=== PATIENT | male | born 1950 | race Caucasian/White ===

== ENCOUNTER 2024-02-12 09:17 | Observation (INO) ==
--- NOTE | 2024-02-12 10:16 | History & Physical Bridge Note ---
Date of Service February 12, 2024 History & Physical Bridge Note I have examined the patient, reviewed the History & Physical and in the interval since the performance of the History & Physical I have noted the following changes of clinical significance: no changes noted
--- NOTE | 2024-02-12 10:17 | Pre Anesthesia Assessment ---
Date of Service February 12, 2024 Pre Sedation Assessment Vital Signs Pulse Resp BP BP Pulse Ox O2 Del Method 02/12/24 10:13 18 147/86 H 96 Room Air 02/12/24 09:34 55 L 18 147/86 H 96 Room Air Cardiovascular RRR, no murmur, no edema + bradycardic Respiratory normal respiratory effort, lungs clear to auscultation Pre-Sedation Airway Assessment Hx Sleep Apnea: No Hx Difficult Intubation: No Short, Thick Neck: No Thyromental Distance: < 3.5 Finger Breadths Oral Cavity: + Dentures and + Dental Abnormalities Mallampati Class: I ASA: ASA3 NPO Status Date of Last Intake of Fluids: 02/11/24 Date of Last Intake of Solid Food: 02/11/24 Procedure Planning Contraindications for Sedation: none Current Medications Reviewed: Yes Notes The planned sedation has been discussed with the patient. Informed Consent was obtained. I have identified the patient, determined the appropriateness of sedation and have assessed the patient immediately prior to the procedure. All medicine(s) and interventions are by my order.
[2024-02-12] MEDS: LIDOCAINE 1% LOCAL 20 ML VIAL ONE (11:03)
[2024-02-12] MEDS: CLINDAMYCIN 900 MG/D5W 50 ML BAG IV ONE (11:04)
[2024-02-12] MEDS: ONDANSETRON INJ 2 MG/ML 2 ML VIAL ONE (11:12)
[2024-02-12] MEDS: NALOXONE HCL 0.4 MG/1 ML VIAL/CARP ONE (11:19)
[2024-02-12] MEDS: MIDAZOLAM HCL 5 MG/ML 1 ML VIAL ONE (11:39)
[2024-02-12] MEDS: fentaNYL citrate PF 100 MCG/2 ML VIAL ONE ×2 (11:39→14:53)
--- NOTE | 2024-02-12 11:56 | Operative Report ---
Post Operative Report DICTATED BY:Fabienne Pa D.O. DATE OF PROCEDURE: 02/12/2024. PREOPERATIVE DIAGNOSES: TBS and junctional bradycardia POSTOPERATIVE DIAGNOSIS: Same PROCEDURE: A dual-chamber rate responsive permanent pacemaker and intracardiac electrogram His bundle recordings, along with a peripheral venogram under f luoroscopic guidance. SURGEON: Fabienne Pa DO ASSISTANTS: None. ANESTHESIA: Monitored conscious sedation administered under my supervision by Bob Lloyd. Start time 10:48, end time 11:34, a total of 4 mg of Versed and 75 mcg of fentanyl. INTRAVENOUS FLUIDS: 294 mL. CONTRAST: 17 mL. ANTIBIOTICS: 900mg clindamycin ADDITIONAL MEDICATIONS: 4mg zofran, 0.4 narcan BLOOD LOSS: 50 mL. URINE OUTPUT: Not applicable. SPECIMENS: None. FINDINGS: See below. DRAINS: None. COMPLICATIONS: None. CONDITION: Stable. INDICATIONS: This is a 73-year-old gentleman who has a past medical history TBS, Junctional bradycardia, CAD s/p DALE x1 to mLAD 06/05/2021, Moderate to severe , Moderate AI, Persistent AF s/p DCCV 06/06/2021 [id number] (age, CHF), Chronic heart failure with reduced EF-NYHA Class II, ICM EF was down to 25% at one time most recent echo 40%, HLD, Thoracic aortic aneurysm, Pulmonary HTN. Pt with wosening TBS and junctional bradycardia and was recommended a pacemaker. CONSENT: Consent was obtained prior to the patient going into the electrophysiology lab. The patient was informed of the risks, benefits, and alternatives to the procedure. Risks include, but not limited to, sudden cardiac , cardiac arrhythmias, cerebrovascular accident, myocardial infarction, injury to his blood vessels, chamber of the heart and lung, bleeding and infection. The patient understood these risks and agreed to the procedure as planned. Informed consent was obtained. DESCRIPTION OF PROCEDURE: The patient was brought into electrophysiology lab in a fasting state. He was connected to continuous cardiac monitoring. A timeout was performed to ensure the patient's identity and procedure correctly. He was prepped and draped in the left infraclavicular space in normal surgical standard fashion. Monitored conscious sedation was given throughout the procedure for the patient's comfort level. Lane precautions were maintained throughout the procedure. Prophylactic antibiotics were given prior to incision. A 20 mL of 1% lidocaine and bupivacaine mixture were given in the left deltopectoral groove. An incision was made in the left deltopectoral groove. Blunt dissection was performed down to the pectoralis muscle. Then, using blunt dissection over the pectoralis muscle within the pectoral fascia, a pacemaker pocket was created. Then, a peripheral venogram was performed to identify the axillary vein. Venous axillary access was obtained through a needlestick without any problems. A guidewire was inserted without any resistance. A 9- Romanian sheath was inserted over the guidewire without any resistance. Dilator was removed and a second guidewire was inserted through the sheath to allow for retained venous access. Then a 6 Romanian sheath was advanced over one of the guidewires. The guidewire and dilator were removed. Then the right atrial pacing lead was advanced temporarily into the RV apex to allow for back up pacing while positioning the left bundle lead. Then a 9 Romanian sheath was inserted over the retained guidewire. The guidewire and dilator were removed. Then, the [employer] 3D medium sheath was inserted through the 9-Romanian sheath over a Glidewire into the right ventricle. The Glidewire and dilator were removed. Then, the left bundle lead was advanced through the sheath and intracardiac electrogram His bundle recordings were performed when the camera was in BOTELLO 10. Once I found where the His bundle is, see below for results, I then moved the camera to BOTELLO 30 and marked where the His bundle was on my fluoroscopy screen. I came down about 2 cm from this in a line that would extend out to the apex and then started coming on pacing. Once I found an area where I had a nice W formed pace complex in my lead V1, I then moved the camera to JASEN 30. Then the helix was extended into the septum. Then the helix locking tool was placed. Then the lead was screwed further into the septum while pacing by giving slow clockwise turns. The paced complex changed to a nice R' in V1 and the pacing stim to peak QRS in V6 was good. I then gave contrast through the sheath to see how far the lead was into the septum and then I slit the [employer] 3D medium sheath under fluoroscopic guidance and left the 9-Romanian sheath in while I positioned the right atrial lead. Then the right atrial lead screw was retracted and the lead was pulled back into the RA and positioned into right atrial appendage under fluoroscopic guidance. There was adequate pacing and sensing thresholds and no diaphragmatic stimulation with high output pacing. The 6-Romanian sheath was peeled away and the lead was fixated to the pectoralis muscle using 0 silk suture. Of note the pt started moving and then coughing and vomited up thick yellow/clear phlegm. He was clapping down on his jaw. HR remained stable; BP dropped into the 90s systolic; we temporally dual AV paced him and reversed his sedation. Pt was fine afterwards and did not recall anything. The 9-Romanian sheath around the left bundle lead was peeled away and the lead was fixated to pectoralis muscle using 0 silk suture. The pocket was flushed with copious amounts of vancomycin and saline wash and inspected for hemostasis. The leads were then attached to the pulse generator making sure the pins were in appropriate position, passed set screws, and set screws were all tightened. Pulse generator was then placed in the pocket, making sure the leads were lying flat beneath the device. The incision was closed in a 3-layer fashion using 2-0 Vicryl interrupted suture, followed by 3-0 Vicryl interrupted suture, followed by 4-0 Monocryl running stitch. Then a primaseal dressing was placed EQUIPMENT: 1. Pulse generator is a [employer]etis MRI Model Number [id number] SN: [id number]. 2. Right atrial lead, Betancourt SJM Tendril STS [id number] SN: [id number] 3. Left bundle lead, Betancourt SJM Tendril STS 8TC SN: [id number] INTRAPROCEDURAL FINDINGS: 1. Intracardiac electrogram His bundle recordings, AH is 97 milliseconds, HV is 44 milliseconds. 2. Right atrial lead, P waves 3.1 millivolts, impedance 450 ohms, threshold 0.6 volts at 0.4 milliseconds. 3. Left bundle lead, R waves 8 millivolts, impedance 653 ohms, threshold 0.9 volts at 0.4 milliseconds. FINAL MEASUREMENTS THROUGH THE DEVICE: 1. Right atrial lead, P waves 2.3 millivolts, impedance 450 ohms, threshold 1.0 volt at 0.4 milliseconds. 2. Left bundle lead, R waves 6.8 millivolts, impedance 630 ohms, threshold 0.75 volts at 0.4 milliseconds. FINAL PARAMETERS: DDDR 60/120, right atrial amplitude 3.5 volts, pulse width 0.4 milliseconds, sensitivity 0.5 millivolts. Left bundle lead amplitude 3.5 volts, pulse width 0.4 milliseconds, sensitivity 2 millivolts. IMPRESSION: Successful dual chamber rate responsive permanent pacemaker under fluoroscopic guidance along with peripheral venogram and intracardiac electrogram His bundle recordings, all under fluoroscopic guidance secondary to TBS and junctional bradycardia. PLAN: Monitor the patient post-procedure. A 12-lead ECG, chest x-ray. He is not to lift the left elbow or left shoulder for 1 month. He cannot lift more than 10 pounds with the left arm for 2 weeks. He is to keep the dressing on and dry until his wound check next week.
--- NOTE | 2024-02-12 12:37 | XRay Report ---
XR chest 1V portable CLINICAL HISTORY: s/p ppm ensure no PTX; also assess for aspiration COMPARISON STUDY: No previous studies for comparison. FINDINGS: There is no pneumothorax following placement of a dual-lead left subclavian pacer. No pleur al effusion is present. There is no evidence for pulmonary edema. There is mild cardiomegaly. IMPRESSION: No pneumothorax following placement of a dual-lead left subclavian pacer. ACT 112: Negative or not required by law. Electronically signed by: Leonardo Eldridge M.D. 02/12/2024 12:35 PM
[2024-02-12] MEDS: BUPIVACAINE 0.25% PF 30 ML VIAL ONE (14:52)
[2024-02-12] MEDS: VANCOMYCIN HCL 1000MG/20ML VIAL ONE (14:53)
[2024-02-12] MEDS: WATER, STERILE FOR INJ 10 ML VIAL ONE (14:53)
[2024-02-12] MEDS: ceFAZolin 330 MG/ML 1 GM VIAL ONE (14:53)
[2024-02-12] MEDS: FLUMAZENIL 0.1 MG/1 ML 10 ML VIAL IV ONE (14:53)
[2024-02-12] MEDS: MIDAZOLAM HCL 1 MG/ML 2ML VIAL ONE (14:53)
--- NOTE | 2024-02-12 15:26 | Electrocardiogram Report ---
Test Reason : Blood Pressure : */* mmHG Vent. Rate : 60 BPM Atrial Rate : 60 BPM P-R Int : 198 ms QRS Dur : 156 ms QT Int : 480 ms P-R-T Axes : * -39 7 degrees QTcB Int : 480 ms Atrial-paced rhythm Left axis deviation Right bundle branch block Abnormal ECG No previous ECGs available Confirmed by Marcello Beyer ([id number]) on 02/12/2024 3:26:22 PM Referred By: Fabienne Pa Confirmed By: Marcello Beyer
--- OUTSIDE RECORDS SUMMARY | 2024-02-12 18:28 | External Medical Summary ---
Author Name Unknown Address Unknown Organization [id number]:[facility] [place] [address] [facility] [address] Laboratory Report Ordering Provider Test Date Status RENÉE WEAVER 02/06/2024 16:39:48 Final Observation Date Value Abnormality Reference (Units ) Status BUN 02/06/2024 16:39:48 20 6-20 (mg/dL) Final Creatinine 02/06/2024 16:39:48 1.1 0.6-1.2 (mg/dL) Final Glomerular filtration rate/1.73 sq M.predicted [Volume Rate/Area] in Serum, Plasma or Blood by Creatinine-based formula (CKD-EPI) 02/06/2024 16:39:48 69 >=60 (mL/min) Final eGFR is calculated based on the CKD-EPI 2020 equation. Sodium 02/06/2024 16:39:48 138 135-146 (m mol/L) Final Potassium 02/06/2024 16:39:48 5.0 3.5-5.1 (m mol/L) Final Cl 02/06/2024 16:39:48 104 98-107 (mm ol/L) Final CO2 02/06/2024 16:39:48 24 22-32 (mmo l/L) Final Anion gap 02/06/2024 16:39:48 10 7-15 (mmol /L) Final Glucose 02/06/2024 16:39:48 79 70-120 (mg /dL) Final Calcium 02/06/2024 16:39:48 9.9 8.4-10.2 ( mg/dL) Final Performing Location [facility] [place] [address] [facility] [address]
--- OUTSIDE RECORDS SUMMARY | 2024-02-12 18:28 | External Medical Summary ---
Author Name Unknown Address Unknown Organization [id number]:[facility] [place] [facility] [address] [facility] [address] Laboratory Report Ordering Provider Test Date Status RENÉE WEAVER 02/06/2024 16:39:48 Final Observation Date Value Abnormality Reference (Units ) Status WBC, Total 02/06/2024 16:39:48 7.32 4.00-10.80 (K/uL) Final RBC 02/06/2024 16:39:48 4.84 4.50-5.25 (M/uL) Final Hemoglobin 02/06/2024 16:39:48 15.4 14.0-16.8 (g/dL) Final HCT 02/06/2024 16:39:48 46.4 40.0-48.4 (%) Final MCV 02/06/2024 16:39:48 95.9 82.0-99.5 (fL) Final MCH 02/06/2024 16:39:48 31.8 27.0-34.0 (pg) Final MCHC 02/06/2024 16:39:48 33.2 32.0-36.0 (g/dL) Final RDW 02/06/2024 16:39:48 15.0 11.5-15.5 (%) Final Platelets 02/06/2024 16:39:48 180 140-400 (K/uL) Final MPV 02/06/2024 16:39:48 13.4 6.6-11.1 (fL) Final Nucleated erythrocytes/100 leukocytes [Ratio] in Blood by Automated count 02/06/2024 16:39:48 0 <=0 (/100 WBCs) Final Performing Location [facility] [place] [address] [facility] [address]
--- OUTSIDE RECORDS SUMMARY | 2024-02-12 18:28 | External Medical Summary | Summary of Care ---
Author Name Unknown Organization [facility] Address [address] [place] [address] Phone [phone] Care Team Providers Care Interior Wall Assembler Name Role Phone Tg Higgins MD Primary Care Provider + Reason for Visit * Reason Comments Outpatient Testing Encounter Details Date Type Department Care Team ([facility] st Contact Info) Description 02/06/2024 4:40 PM EDT Laboratory Laboratory, [facility] [address] [place] [id number] [facility], Lab [address] [place] [address] Junctional bradycardia; Tachy-garland syndrome (HCC); Coronary artery disease involving chinik coronary artery of chinik heart without angina pectoris; HFrEF (heart failure with reduced ejection fraction) ([facility]); Pulmonary hypertension (HCC); Prediabetes; Pre-operative cardiovascular examination Allergies Active Allergy Reactions Criticality Noted Date Comments Ceftriaxone Rash Medium 06/06/2021 documented as of this encounter (statuses as of 02/06/2024) Medications Medication Sig Dispensed Refills Start Date End Date Status LUMIGAN 0.01 % ophthalmic solution APPLY 1 DROP INTO BOTH EYES AT BEDTIME 5 07/08/2017 Active Aspirin EC 81 MG Oral Tablet Delayed Release Take 1 Tablet by mouth in the morning. 06/26/2022 Active Apixaban 5 MG Oral Tablet (Eliquis) Take 1 Tablet by mouth in the morning and 1 Tablet before bedtime. 60 Tablet 12 09/19/2022 Active Cholecalciferol 125 MCG (5000 UT) Oral Capsule Take 1 Capsule by mouth in the morning. 07/24/2022 Active Brinzolamide 1 % Ophthalmic Suspension (Azopt) Instill 1 Drop into the left eye daily. 07/16/2023 Active Methylcobalamin 1 MG Oral Tablet Chewable Take by mouth. 02/01/2023 Active Vitamin C 500 MG Oral Tablet (Ascorbic Acid) Take 1 Tablet by mouth in the morning and 1 Tablet before bedtime. Active Crestor 5 MG Oral Tablet Take 1 Tablet by mouth in the morning. 08/12/2023 Active Metoprolol Succinate ER 25 MG Oral Tablet Extended Release 24 Hour (toPROL XL) Take 0.5 Tablets by mouth in the morning. Take in evening.. 30 Tablet 5 10/29/2023 Active Losartan Potassium 25 MG Oral Tablet (Cozaar) Take 1 Tablet by mouth in the morning. 90 Tablet 3 12/09/2023 Active Empagliflozin 10 MG Oral Tablet (Jardiance) Take 1 Tablet by mouth in the morning. 90 Tablet 3 01/06/2024 Active documented as of this encounter (statuses as of 02/06/2024) Active Problems Problem Noted Date Diagnosed Date HFrEF (heart failure with reduced ejection fract ion) 10/11/2023 Paroxysmal atrial fibrillation 10/11/2023 Coronary artery disease invo lving chinik coronary artery of chinik heart without angina pectoris 10/11/2023 Acute systolic HF (heart failure) 06/02/2021 Nonrheumatic aortic valve stenosis 06/02/2021 Mitral regurgitation 06/02/2021 Ground glass opacity present on imaging of lung 06/02/2021 Prediabetes 06/02/2021 BAR (dyspnea on exertion) 06/02/2021 Obesity 06/02/2021 Cardiomyopathy 06/01/2021 Valvular heart disease 06/01/2021 Right lower lobe pneumonia 05/31/2021 Mild cardiomegaly 05/31/2021 Pulmonary hypertension 05/31/2021 Thoracic aortic aneurysm without rupture 022 Elevated glucose 05/31/2021 documented as of this encounter (statuses as of 02/06/2024) Resolved Problems Problem Noted Date Diagnosed Date Resolved Date Near syncope 10/11/2023 10/12/2023 Left against medical advice 06/01/2021 06/02/2021 Atrial fibrillation with RVR 05/31/2021 06/04/2021 documented as of this encounter (statuses as of 02/06/2024) Immunizations Name Administration Dates Next Due COVID-19 mRNA, LNP-s, No Pre serve, 2-Dose Series ([employer]) 08/27/2020,08/05/2020 Seasonal Influenza, High Dos e, Trivalent, PF, IM (Fluzone HD) 01/22/2024 documented as of this encounter Social History Tobacco Use Types Packs/Day Years Used Date Smoking Tobacco: Never Smokeless Tobacco: Never Alcohol Use Standard Drinks/Week Comments No 0 (1 standard drink = 0.6 oz pur e alcohol) Utilities Answer Date Recorded Do you have trouble paying y our heating, water, or electric bill? (Adult - for ages 18 years and over) Not on file 10/29/2023 Is your family able to pay t he heat, water, or electric bill? (Household - for ages 0-17 years) Not on file 10/29/2023 Does your family have access to good internet? (Household - for ages 0-17 years) Not on file 10/29/2023 Social Connections Answer Date Recorded How often do you feel lonely or isolated from those around you? (Adult - for ages 18 years and over) Not on file 10/29/2023 Sex and Gender Information Value Date Recorded Sex Assigned at Not on file Gender Identity Not on file Sexual Orientation Not on file Job Start Date Occupation Industry Not on file Not on file Not on file documented as of this encounter Functional Status Functional Status Response Date of Assess ment Are you deaf or do you have serious difficulty h earing? No 10/11/2023 Are you blind or do you have serious difficulty seeing, even when wearing glasses? No 10/11/2023 Do you have serious difficul ty walking or climbing stairs? (5 years old or older) No 10/11/2023 Do you have difficulty dress ing or bathing? (5 years old or older) No 10/11/2023 Because of a physical, menta l, or emotional condition, do you have difficulty doing errands alone such as visiting a doctor s office or shopping? (15 years old or older) No 10/11/19 Cognitive Status Response Date of Assessm ent Because of a physical, menta l, or emotional condition, do you have serious difficulty concentrating, remembering, or making decisions? (5 years old or older) No 10/11/2023 documented as of this encounter Plan of Treatment Upcoming Encounters Date Type Department Care Team (Late st Contact Info) Description 02/19/2024 10:30 AM EDT Cardiac Studies Cardiology, [place] [address] [place] [address] [facility] [address] [place] [address] 02/19/2024 1:30 PM EDT Office Visit Cardiology, [place] [address] [place] [address] [facility] [facility] [address] 03/31/2024 1:30 PM EST Office Visit Cardiology, [place] [address] [place] [address] Tacos Talbot DO [address] [facility] [place] [address] 09/21/2024 3:00 PM EDT Office Visit [facility] [address] [place] [address] Jyoti Blackwood CRNP [address] [facility] [place] [address] Pending Results Name Type Priority Associated Diagnoses Date /Time BASIC METABOLIC PANEL Lab Routine Junctional bradycardia Tachy-garland syndrome (HCC) Coronary artery disease involving chinik coronary artery of chinik heart without angina pectoris HFrEF (heart failure with reduced ejection fraction) (HCC) Pulmonary hypertension (HCC) Prediabetes Pre-operative cardiovascular examination 02/06/2024 4:39 PM EDT CBC Lab Routine Junctional bradycardia Tachy-garland syndrome (HCC) Coronary artery disease involving chinik coronary artery of chinik heart without angina pectoris HFrEF (heart failure with reduced ejection fraction) (HCC) Pulmonary hypertension (HCC) Prediabetes Pre-operative cardiovascular examination 02/06/2024 4:39 PM EDT Health Maintenance Due Date Last Done Comments Depression Screening 1961 Hepatitis C Screening 1967 DTap/Tdap Vaccines (1 - Tdap) 1968 Colonoscopy 1994 Fecal Occult Blood Test 1994 Sigmoidoscopy 1994 HbA1c 06/03/2022 06/03/2021, 05/13, 01/10/2021, Additional history exists Zoster Vaccines (2 of 2) 05/12/2023 03/17/2023 COVID-19 Vaccine ( season) 2024 03/17/2023, 03/17/2023, 03/12/2022, Additional history exists Cologuard 06/22/2024 06/22/2021, 06/15/2021 Colorectal Cancer Screening 06/22/2024 Pneumococcal Vaccine: 65+ Years Completed 02/01/2023 Influenza Vaccine (FLU shot) Completed 01/22/2024, 02/01/2023 HPV (Gardasil) Vaccine Aged Out No lo nger eligible based on patient's age to complete this topic Hepatitis B Vaccine Aged Out No longe r eligible based on patient's age to complete this topic MENINGOCOCCAL (MENACTRA/MENVEO) Aged Out No longer eligible based on patient's age to complete this topic documented as of this encounter Medical Devices Implanted Type Area Flame Annealing Machine Operator Device Identifier Shelf Expiration Date Model / Serial / Lot Stent Oren 3.0x12 Rx - [id number] Implanted:Qty: 1 on 06/05/2021 by Arvind Denney DO at [facility] [employer] : VASCULAR [id number] 11/14/2023 [id number] / / [id number] documented as of this encounter Visit Diagnoses Diagnosis Junctional bradycardia Other specified cardiac dysrhythmias Tachy-garland syndrome (HCC) Sinoatrial node dysfunction Coronary artery disease involving chinik coronary artery of chinik heart without angina pectoris HFrEF (heart failure with reduced ejection fraction) (HCC) Pulmonary hypertension (HCC) Other chronic pulmonary heart diseases Prediabetes Other abnormal glucose Pre-operative cardiovascular examination documented in this encounter Advance Directives * Full Code (Latest Code Status on File) Date Activated Date Inactivated Comments 10/11/2023 10:01 AM 10/12/2023 2:50 PM This order r eflects the patients wishes and were consensually agreed upon. Question Answer Comments Discussion of Advance Direct sarita occurred with: Patient Does the patient have a Living Will? Yes, in rosaura rt and reviewed as current Does the patient have Health Care Power of X Ray Physician? Yes, in chart and reviewed as current * Full Code Date Activated Date Inactivated Comments 06/02/2021 5:24 PM 06/06/2021 4:07 PM This order r eflects the patients wishes and were consensually agreed upon. * Full Code Date Activated Date Inactivated Comments 06/01/2021 3:42 PM 06/02/2021 5:15 PM This order r eflects the patients wishes and were consensually agreed upon. Question Answer Comments Discussion of Advance Directives occurred with: Patient * Full Code Date Activated Date Inactivated Comments 05/31/2021 12:54 PM 06/01/2021 12:09 PM This order reflects the patients wishes and were consensually agreed upon. Question Answer Comments Discussion of Advance Directives occurred with: Patient Care Teams Interior Wall Assembler Relationship Specialty Start Date End Date Tg iHggins MD [address] [facility] [place] [address] PCP - General Family Medicine 03/06/17 documented as of this encounter
--- OUTSIDE RECORDS SUMMARY | 2024-02-12 18:28 | External Medical Summary | Summary of Care ---
Author Name Unknown Organization [facility] Address [address] [place] [address] Phone [phone] Care Team Providers Care Radio Television Announcer Name Role Phone Tg Higgins MD Primary Care Provider + Reason for Visit * Reason Onset Date Comments Dosage Adjustment In Person (Antico Clinic) Congestive Heart Failure Medication Administration 01/22/2024 Flu an d/or Pneumo Inj Encounter Details Date Type Department Care Team ([facility] Contact Info) Description 01/22/2024 1:00 PM EDT [facility] [address] [place] [address] [facility] Card[facility] [address], [place] [id number] Need for prophylactic vaccination and inoculation against influenza* Allergies Active Allergy Reactions Criticality Noted Date Comments Ceftriaxone Rash Medium 06/06/2021 documented as of this encounter (statuses as of 01/22/2024) Medications Medication Sig Dispensed Refills Start Date [...] as of this encounter (statuses as of 01/22/2024) Active Problems Problem Noted Date Diagnosed Date HFrEF (heart failure with reduced ejection fract ion) 10/11/2023 Paroxysmal atrial fibrillation 10/11/2023 Coronary artery disease invo lving [place] coronary artery of [place] heart without angina pectoris 10/11/2023 Acute systolic HF (heart failure) 06/02/2021 Nonrheumatic aortic valve stenosis 06/02/2021 Mitral regurgitation 06/02/2021 Ground glass opacity present on imaging of lung 06/02/2021 Prediabetes 06/02/2021 BRA (dyspnea on exertion) 06/02/2021 Obesity 06/02/2021 Cardiomyopathy 06/01/2021 Valvular heart disease 06/01/2021 Right lower lobe pneumonia 05/31/2021 Mild cardiomegaly 05/31/2021 Pulmonary hypertension 05/31/2021 Thoracic aortic aneurysm without rupture 022 Elevated glucose 05/31/2021 documented as of this encounter (statuses as of 01/22/2024) Resolved Problems Problem Noted Date Diagnosed Date Resolved Date Near syncope 10/11/2023 10/12/2023 Left against medical advice 06/01/2021 06/02/2021 Atrial fibrillation with RVR 05/31/2021 06/04/2021 documented as of this encounter (statuses as of 01/22/2024) Immunizations Name Administration Dates Next Due COVID-19 mRNA, LNP-s, No Pre serve, 2-Dose Series (Pfizer) 08/27/2020,08/05/2020 Seasonal Influenza, High Dos e, Trivalent, [...] on file documented as of this encounter Last Filed Vital Signs Vital Sign Reading Time Taken Comments Blood Pressure 116/69 01/22/2024 1:10 PM EDT Pulse 45 01/22/2024 1:10 PM EDT Temperature - - Respiratory Rate - - Oxygen Saturation - - Inhaled Oxygen Concentration - - Weight 100 kg (220 lb 6.4 oz) 01/22/2024 1:10 PM EDT Height - - Body Mass Index 29.89 10/29/2023 9:25 AM EDT documented in this encounter Functional Status Functional Status Response [...] No 10/11/2023 documented as of this encounter Patient Instructions * Patient Instructions* Emilie Pacheco RPh - 01/22/2024 1:14 PM EDT ~~PATIENT INSTRUCTIONS FOR FLU SHOT~~ Possible side effects of influenza vaccine, (flu shot), are usually mild and include: 1. Soreness or redness at injection site 2. Low grade fever 3. Body aches You may use Tylenol/Acetaminophen as needed for these symptoms. LET YOUR DOCTOR KNOW IMMEDIATELY IF YOU HAVE DIFFICULTY BREATHING OR SWALLOWING, EXPERIENCE ITCHINGOF FEET OR HANDS, HAVE SWELLING OF EYES, FACE OR INSIDE OF NOSE. Continue current medications for your heart Jardiance is used for diabetes BUT its also used to treat a week heart (which you have) Can cause mild weight loss We will continue your current mediations documented in this encounter Progress Notes * Emilie Pacheco RPh - 01/22/2024 12:55 PM EDT PHARMACY CHRONIC DISEASE MANAGEMENT - HEART FAILURE Richard Holt is an 73 year old patient referred to the Heart Failure [place] clinic by [facility] Jean-Baptiste for the following: General heart failure medication optimization HPI: Patient has heart failure assessment: Heart failure with REDUCED ejection fraction (SYStolic heart failure) with ischemic heart disease Etiology: Most recent LVEF: 40 % Date: 12/10/23 Modality: Echo PPrevious LVEF: 35% Date: 10/29/23 Modality: Echo 30% Date: 10/11/23 Modality: Echo 50 % Date: 03/06/22 Modality: Echo 40% Date: 09/15/21 Modality: Echo 25 % Date: 06/05/21 Modality: Echo 30 % Date: 06/01/21 Modality: Echo Home vitals: Does patient monitor BP at home? no Any dizziness or lightheadedness: Sometime when changing positions Home BP log results: N/a Does patient monitor HR at home? no Home HR log results: N/a Does patient monitor weight at home? no Any increased edema or shortness of breath: denies Home weight log results: Not checking at home Objective: BP Readings from Last 3 Encounters: 01/22/24 116/69 01/06/24 116/63 12/23/23 98/58 Pulse Readings from Last 3 Encounters: 01/22/24 45 01/06/24 44 12/09/23 47 Wt Readings from Last 3 Encounters: 01/22/24 100 kg (220 lb 6.4 oz) 12/09/23 100 kg (220 lb 8 oz) 10/29/23 98.9 kg (218 lb) Lab Results Component Value Date/Time CREATININE - [facility] 1.0 01/20/2024 02:02 PM CREATININE - [facility] 1.0 12/20/2023 01:39 PM CREATININE - [facility] 1.0 10/12/2023 03:24 AM CREATININE-OU[facility]IDE LAB 1.0 08/05/2023 10:06 AM CREATININE-[facility] 0.9 07/13/2022 01:16 PM CREATININE-[facility]TSIDE LAB 0.9 12/29/2021 01:10 PM Lab Results Component Value Date/Time SODIUM - [facility] 139 01/20/2024 02:02 PM SODIUM - [facility] 138 12/20/2023 01:39 PM SODIUM - [facility] 138 10/12/2023 03:24 AM SODIUM-[facility] 141 08/05/2023 10:06 AM SODIUM-[facility] 140 07/13/2022 01:16 PM SODIUM-[facility]IDE LAB 140 12/29/2021 01:10 PM Lab Results Component Value Date/Time POTASSIUM - [facility] 4.5 01/20/2024 02:02 PM POTASSIUM - [facility] 4.5 12/20/2023 01:39 PM POTASSIUM - [facility] 4.2 10/12/2023 03:24 AM POTASSIUM-[facility]IDE LAB 4.7 08/05/2023 10:06 AM POTASSIUM-[facility]IDE LAB 4.1 07/13/2022 01:16 PM POTASSIUM-OUTSIDE LAB 4.2 12/29/2021 01:10 PM No results found for: "DIG" Lab Results Component Value Date/Time HGB 13.9 (L) 10/12/2023 03:24 AM HGB 14.6 10/11/2023 11:08 AM HGB 14.0 08/05/2023 10:06 AM HGB 43.7 08/05/2023 10:06 AM HGB 15.5 07/13/2022 01:16 PM HGB 46.3 07/13/2022 01:16 PM HGB 15.0 12/29/2021 01:10 PM HGB 44.6 12/29/2021 01:10 PM No results found for: "FERRITIN" No results found for: "IRON" No results found for: "IRON BIND" No results found for: "TRANSFERRIN" Diet Review: not reviewed Current Heart Failure Medication(s): Losartan 25 mg daily Metoprolol ER 12.5 mg daily Jardiance 10 mg daily-started 01/06/24 ( momo) Crestor 5 mg daily Eliquis 5 mg twice daily Aspirin 81 mg daily MOMO Card ID:[id number] Group: [id number] BIN: [id number] PCN: [id number] 06/10/2023-06/09/2024 Eligible for [facility] Order pharmacy? Agree or Declined? Denies Assessment & Plan: HFrEF -Most recent EF 40% -Entresto d/c in past during hospitalization due to hypotension 70s systolic Patient doing well today. Was able to start Jardiance and is tolerating. Still having concerns of hypotension and dizziness. Denies it worsening with the Jardiance. Follow up BMP was stable. Patient bradycardic in clinic again today. Seeing Dr Pa at the end of the month. No changes until after her visit. Would consider re-trail of dose Entresto however will need to be cautious as pt is symptomatic. 2. CAD -DALE x1 mLAD, has 50% RCA stenosis 06/05/21 3. Moderate-Severe Aortic Stenosis 4. Moderate Aortic Regurgitation 5. Persistent AFIB -GREGOR/DCCV 10/29/23 -DCCV 06/06/2021 -CHADVASC 2 (age, CHF) -Eliquis Medication Changes: none Labs Due: none Vaccines Due: Not reviewed Follow up: [address] Pa I spent a total of 10-19 minutes (exact time 15 mins) on the date of service in preparation, delivery, and documentation of the care provided to Richard Holt excluding any time spent in the performance of separately billed services or time spent by another provider/QHP. Emilie Beatty [facility] Clinical Pharmacist Medication Therapy Disease Management [id number] 01/22/2024,12:55 PM PRE - ADMINISTRATION DOCUMENTATION Are you experiencing any cold symptoms or fever? No Have you had Guillain-Thornburg Syndrome (an illness that causes paralysis) within the last 6 weeks? No Have you had the flu shot in the past? YES Have you ever had a reaction to the flu shot? No Emilie Beatty keerthi, 01/22/2024 1:14 PM Immunization Administration Documentation Time Out Procedure Performed: Yes Patient Identified (Ask Name/Date of ): Yes Does the patient have a fever greater than 101 degrees today? No Patient allergic to latex? No VFC Stock: No Immunization(s) verified: Yes, Immunization Name: Flu, VIS Sheet(s) given: No Verified Side and Site: Yes Verified Shot(s) with Parent(s)/Patient: Yes documented in this encounter Plan of Treatment Upcoming Encounters Date Type Department Care Team (Late st Contact Info) Description 02/06/2024 2:15 PM EDT Office Visit [facility] [address] [address] Fabienne Pa DO [address] [address] 02/19/2024 1:30 PM EDT Office Visit [facility]iology[facility] [address] [facility] Cardiology [address] [address] 03/31/2024 1:30 PM EST Office Visit [facility]iology[facility] [address] [address] [place], [address] [address] Health Maintenance Due Date Last Done Comments [...] this encounter Medical Devices Implanted Type Area Client Onboarding Analyst Device Identifier Shelf Expiration Date Model / Serial / Lot Stent Oren 3.0x12 Rx - [id number] Implanted:Qty: 1 on 06/05/2021 by Arvind Denney DO at [facility] [employer] : VASCULAR [id number] 11/14/2023 [id number] / / [id number] documented as of this encounter Visit Diagnoses Diagnosis Need for prophylactic vaccination and inoculation against influenza- Primary documented in this encounter Advance Directives * [...] the patient have Health Care Power of Guest Experience Captain? Yes, in chart and reviewed as current [...] Advance Directives occurred with: Patient Care Teams Radio Television Announcer Relationship Specialty Start Date End Date Tg Higgins MD [address] [facility] [place] [address] PCP - General Family Medicine 03/06/17 documented as of this encounter
--- OUTSIDE RECORDS SUMMARY | 2024-02-12 18:28 | External Medical Summary | Summary of Care ---
Author Name Unknown Organization [facility] Address [address] [place] [address] Phone [phone] Care Team Providers Care Railcar Brake Operator Name Role Phone Tg Higgins MD Primary Care Provider + Reason for Visit * Reason Onset Date Comments Patient Instructions 02/06/2024 Encounter Details Date Type Department Care Team ([facility] st Contact Info) Description 02/06[facility]20[facility] [address] [place] [address] Fabienne Pa, [address] [place] [address] Patient Instructions Allergies Active Allergy Reactions Criticality Noted Date [...] fibrillation 10/11/2023 Coronary artery disease invo lving [place] coronary artery of [place] heart without angina pectoris 10/11/2023 Acute systolic [...] mRNA, LNP-s, No Pre serve, 2-Dose Series ([place]) 08/27/2020,08/05/2020 Seasonal Influenza, High Dos e, Trivalent, [...] No 10/11/2023 documented as of this encounter Miscellaneous Notes * Telephone Encounter - Gwendolyn Eldridge NRCMA - 02/06/2024 4:18 PM EDT Device Instructions Procedure Date: 02/12/2024 Time: 10:30 am Location: [facility] Main Entrance- Outpatient Registration, [address] [facility], [place] [address] Patient was notified via written instructions given at office visit. Nothing to eat or drink after midnight, You may have clear liquids 4 hours prior to procedure No caffeine 24 hours prior to procedure No tobacco products after midnight Arrive at [facility] at 9:30 am in the Medical Treatment Unit/Same Day Surgery Desk and check in at the registration desk. Arrive at the time given to you by the PAT dept and check in at the registration desk. Aproximate time: The hospital will call you the evening before & give you exact time. This is an estimated arrival time. Please follow what they tell you when they call. Meds to hold AM of procedure include- Jardiance, Eliquis and any over the counter vitamins, Fish oil and/or Vit E. Eliquis Instruction: Stop med two doses prior to the procedure. Pt may take all other medications regularly scheduled that morning. Additional labs or testing needed: labs needed Bring all of your medications with you in their original containers. Use Chlorhexidine wash the evening prior to and the morning of the procedure. Follow instructions given with the wash. You may remain at [facility] Overnight for observation. Wound check in [facility] Cardiology [place] [facility] with Clinic Nurse is scheduled for 02/19/2024 at 10:30 am. Your wound is NOT PERMITTED to get wet in any way while site is covered by bandage. You are unable to shower/swim/hot tub until given permission by clinic nurse in the office. Call Aura at [phone] with any questions or concerns. documented in this encounter Plan of Treatment Upcoming Encounters Date Type Department Care Team (Late st Contact Info) Description 02/19/2024 10:30 AM EDT Cardiac Studies Cardiology, [place] [address] [address] [facility] [address] [address] [address] 02/19/2024 1:30 PM EDT Office Visit Cardiology, [place] [address] [place] [address] [facility] Cardiology [address] [facility], [place] [address] 03/31/2024 1:30 PM EST Office Visit Cardiology, [place] [address] [facility] [place] [address] [place], [address] [facility] [address] 09/21/2024 3:00 PM EDT Office Visit Cardiology, [place] [address] [facility] [place] [address] Jyoti Blackwood, [facility] [address] [facility] [address] Health Maintenance Due Date Last Done Comments [...] this encounter Medical Devices Implanted Type Area Market Maker Device Identifier Shelf Expiration Date Model / Serial / Lot Stent Oren 3.0x12 Rx - [id number] Implanted:Qty: 1 on 06/05/2021 by Arvind Denney DO at [facility] [employer] : VASCULAR [id number] 11/14/2023 [id number] / / [id number] documented as of this encounter Advance Directives * Full Code [...] the patient have Health Care Power of Potter Or Ceramic Artist? Yes, in chart and reviewed as current [...] Advance Directives occurred with: Patient Care Teams Railcar Brake Operator Relationship Specialty Start Date End Date Tg Higgins [facility] [address] [facility] [address] PCP - General Family Medicine 03/06/17 documented as of this encounter
--- OUTSIDE RECORDS SUMMARY | 2024-02-12 18:28 | External Medical Summary | Summary of Care ---
Author Name Unknown Organization [facility] Address [address] [place] [address] Phone [phone] Care Team Providers Care Bracelet Maker Novelty Name Role Phone Tg Higgins MD Primary Care Provider + Reason for Visit * Reason Comments Consultation Rm 12 * Evaluate & Treat - Unlimited Visits (Within 10 days (routine)) - Authorized Specialty Diagnoses / Procedures Referred By Contact Referred To Contact Cardiac Electrophysiology / Cardiology Diagnoses Persistent atrial fibrillation (HCC) Karla Lane CRNP [address] [place] [address] Referral ID Status Reason Start Date Expiration Date Visits Requested Visits Authorized [id number] Authorized Specialty Services Required 12/09/[id number] Encounter Details Date Type Department Care Team ([facility] Contact Info) Description 02/06/2024 2:15 PM EDT Office Visit Cardiology[address] [phone] Fabienne Pa DO [address], [place] [phone] Junctional bradycardia*; Tachy-garland syndrome (HCC); Coronary artery disease involving [place] coronary artery of [place] heart without angina pectoris; HFrEF (heart failure with reduced ejection fraction) (HCC); Pulmonary hypertension (HCC); Prediabetes; Pre-operative cardiovascular examination Allergies Active Allergy Reactions Criticality Noted Date Comments Ceftriaxone Rash Medium 06/06/2021 documented as of this encounter (statuses as of 02/07/2024) Medications Medication Sig Dispensed Refills Start Date [...] as of this encounter (statuses as of 02/07/2024) Active Problems Problem Noted Date Diagnosed Date HFrEF (heart failure with reduced ejection fract ion) 10/11/2023 Paroxysmal atrial fibrillation 10/11/2023 Coronary artery disease invo lving [place] coronary artery of [place] heart without angina pectoris 10/11/2023 Acute systolic [...] as of this encounter (statuses as of 02/07/2024) Resolved Problems Problem Noted Date Diagnosed Date Resolved Date Near syncope 10/11/2023 10/12/2023 Left against medical advice 06/01/2021 06/02/2021 Atrial fibrillation with RVR 05/31/2021 06/04/2021 documented as of this encounter (statuses as of 02/07/2024) Immunizations Name Administration Dates Next Due COVID-19 mRNA, LNP-s, No Pre serve, 2-Dose Series (LGL/LatinMedios) 08/27/2020,08/05/2020 Seasonal Influenza, High Dos e, Trivalent, [...] Sign Reading Time Taken Comments Blood Pressure 118/70 02/06/2024 3:08 PM EDT Pulse 44 02/06/2024 3:08 PM EDT Temperature - - Respiratory Rate 16 02/06/2024 3:08 PM EDT Oxygen Saturation - - Inhaled Oxygen Concentration - - Weight 98.9 kg (218 lb) 02/06/2024 3:08 PM EDT Height 182.9 cm (6') 02/06/2024 3:08 PM EDT Body Mass Index 29.57 02/06/2024 3:08 PM EDT documented in this encounter Functional Status [...] No 10/11/2023 documented as of this encounter Progress Notes * Fabienne Pa, - 02/06/2024 2:48 PM EDT Subjective Richard Holt is a 73 year old male. Chief Complaint Patient presents with Consultation Rm 12 Pt referred to EP due to TBS Referring Provider: Karla Lane Cardiac Problems: CAD s/p DALE x1 to mLAD 06/05/2021 Moderate to severe Moderate AI Persistent AF s/p DCCV 06/06/2021 [id number] (age, CHF) Chronic heart failure with reduced EF-NYHA Class II ICM EF was down to 25% at one time most recent echo 40% HLD HPI: Pt has dizziness and feels off; no syncope He does not really feel the AF at least palpitations He denies CP He can get SOB walking around the house at times Pt did not have any anginal symptoms or any symptoms when he ended up getting stent PMH: Patient Active Problem List Diagnosis Right lower lobe pneumonia Mild cardiomegaly Pulmonary hypertension (HCC) Thoracic aortic aneurysm without rupture (HCC) Elevated glucose Cardiomyopathy (HCC) Valvular heart disease Acute systolic HF (heart failure) (HCC) Nonrheumatic aortic valve stenosis Mitral regurgitation Ground glass opacity present on imaging of lung Prediabetes BAR (dyspnea on exertion) Obesity HFrEF (heart failure with reduced ejection fraction) (HCC) Paroxysmal atrial fibrillation (HCC) Coronary artery disease involving [place] coronary artery of [place] heart without angina pectoris Current Outpatient Medications Medication Sig Dispense Refill LUMIGAN 0.01 % ophthalmic solution APPLY 1 DROP INTO BOTH EYES AT BEDTIME 5 Aspirin EC 81 MG Oral Tablet Delayed Release Take 1 Tablet by mouth in the morning. Apixaban 5 MG Oral Tablet (Eliquis) Take 1 Tablet by mouth in the morning and 1 Tablet before bedtime. 60 Tablet 12 Cholecalciferol 125 MCG (5000 UT) Oral Capsule Take 1 Capsule by mouth in the morning. Brinzolamide 1 % Ophthalmic Suspension (Azopt) Instill 1 Drop into the left eye daily. Methylcobalamin 1 MG Oral Tablet Chewable Take by mouth. Vitamin C 500 MG Oral Tablet (Ascorbic Acid) Take 1 Tablet by mouth in the morning and 1 Tablet before bedtime. Crestor 5 MG Oral Tablet Take 1 Tablet by mouth in the morning. Metoprolol Succinate ER 25 MG Oral Tablet Extended Release 24 Hour (toPROL XL) Take 0.5 Tablets by mouth in the morning. Take in evening.. 30 Tablet 5 Losartan Potassium 25 MG Oral Tablet (Cozaar) Take 1 Tablet by mouth in the morning. 90 Tablet 3 Empagliflozin 10 MG Oral Tablet (Jardiance) Take 1 Tablet by mouth in the morning. 90 Tablet 3 No current facility-administered medications for this visit. Past Medical History: Diagnosis Date Ascending aorta dilation (HCC) Coronary artery disease Dyslipidemia, goal LDL below 70 HTN (hypertension) Ischemic cardiomyopathy Paroxysmal A-fib (HCC) Past Surgical History: Procedure Laterality Date CORONARY ANGIOGRAPHY W/LEFT HEART CATH Right 06/05/2021 CORONARY ANGIOGRAPHY W/LEFT HEART CATH performed by Arvind Denney DO [place] [facility] [place], [place] INTRAOPERATIVE N/A 10/29/2023 ECHOCARDIOGRAPHY, TRANSESOPHAGEAL; INCLUDING PROBE PLACEMENT, IMAGE ACQUISITION, INTERPRETATION ANDREPORT performed by Tacos Talbot DO at OR [facility] HEART ELECTROCONVERSION, EXTERNAL N/A 10/29/2023 DC CARDIOVERSION performed by Tacos Talbot DO at OR [facility] INFORMATION Colonoscopy. PEDIATRIC ECHO [facility] CONGENITAL INTERP - PROBE PLACEMENT N/A 06/05/2021 ECHOCARDIOGRAPHY, TRANSESOPHAGEAL, FOR CONGENITAL ANOMALIES; INCLUDING PROBE PLACEMENT, IMAGE ACQUISITION, INTERPRETATION AND REPORT performed by [facility] [place] [facility] Review of patient's allergies indicates: Allergen Reactions Ceftriaxone Rash Family History Problem Relation Name Age of Onset Heart disease Mother Other (old age) Father Family Status Relation Status Mo Fa Social History Socioeconomic History Marital status: Single Spouse name: Not on file Number of children: Not on file Years of education: Not on file Highest education level: Not on file Occupational History Not on file Tobacco Use Smoking status: Never Smokeless tobacco: Never Vaping Use Vaping status: Never Used Substance and Sexual Activity Alcohol use: No Drug use: No Sexual activity: Not on file Other Topics Concern Not on file Social History Narrative Not on file Social Determinants of Health Financial Resource Strain: Not on file Food Insecurity: Not on file Transportation Needs: Not on file Social Connections: Unknown (10/29/2023) Social Connections How often do you feel lonely or isolated from those around you? (Adult - for ages 18 years and over): Not on file Housing Stability: Not on file Review of Systems Constitutional: Negative for activity change, chills, fatigue, fever and unexpected weight change. HENT: Negative for postnasal drip, rhinorrhea and sinus pressure. Eyes: Negative for visual disturbance. Respiratory: Negative for shortness of breath. Cardiovascular: Negative for chest pain, palpitations and leg swelling. Gastrointestinal: Negative for blood in stool, constipation, diarrhea, nausea and vomiting. Genitourinary: Negative for dysuria and hematuria. Musculoskeletal: Negative for gait problem. Skin: Negative for rash. Neurological: Negative for dizziness, syncope and light-headedness. Objective BP 118/70 | Pulse 44 | Resp 16 | Ht 1.829 m (6') | Wt 98.9 kg (218 lb) | BMI 29.57 kg/m | BSA 2.24 m Physical Exam Vitals and nursing note reviewed. Constitutional: General: He is awake. Appearance: Normal appearance. He is well-developed. HENT: Head: Normocephalic and atraumatic. Eyes: General: No scleral icterus. Extraocular Movements: Extraocular movements intact. Neck: Vascular: Normal carotid pulses. No carotid bruit or JVD. Cardiovascular: Rate and Rhythm: Normal rate and regular rhythm. Pulses: Carotid pulses are 2+ on the right side and 2+ on the left side. Radial pulses are 2+ on the right side and 2+ on the left side. Posterior tibial pulses are 2+ on the right side and 2+ on the left side. Heart sounds: S1 normal and S2 normal. Murmur heard. Pulmonary: Effort: Pulmonary effort is normal. Breath sounds: Normal breath sounds. No decreased breath sounds, wheezing, rhonchi or rales. Musculoskeletal: Cervical back: Neck supple. Right lower leg: No edema. Left lower leg: No edema. Skin: General: Skin is warm and dry. Neurological: General: No focal deficit present. Mental Status: He is alert and oriented to person, place, and time. Psychiatric: Attention and Perception: Attention normal. Mood and Affect: Mood normal. Speech: Speech normal. Behavior: Behavior normal. Behavior is cooperative. Thought Content: Thought content normal. Cognition and Memory: Cognition normal. Judgment: Judgment normal. RESULTS: Echocardiogram: 12/10/2023: The qualitative LV ejection fraction is 40-44% (mildly reduced). The left ventricular cavity size is mildly enlarged. [id number] aortic valve stenosis. Aortic valve peak velcity of 3.8m/sec, mean gradient 33 mmhg, KEITH 1 sqcm, DI 0.2 Moderate aortic valve regurgitation is present. The proximal ascending thoracic aorta is moderately enlarged (4.8 cm). Normal IVC size and collapsability with inspiration indicates a normal right atrial pressure of 3 mmHg. The estimated pulmonary artery systolic pressure is 45mm Hg. 10/11/2023: Qualitative LV ejection Fraction = 30%. The right ventricular cavity is mildly dilated. The right ventricular systolic function is qualitatively normal. Moderate aortic valve stenosis is present. Severity of aortic valve stenosis is underestimated low-flow low gradient aortic valve stenosis. Moderate aortic valve regurgitation is present. Moderate to severe mitral regurgitation. Moderate tricuspid regurgitation is present. The proximal ascending thoracic aorta is moderately enlarged (4.8 cm). 09/16/2023: Qualitative LV ejection Fraction = 30%. The left ventricular cavity size is moderately enlarged. Moderate aortic valve stenosis is present. Severity of aortic valve stenosis is underestimated low-flow low gradient aortic valve stenosis. Moderate aortic valve regurgitation is present. The proximal ascending thoracic aorta is moderately enlarged (4.8 cm). There was atrial fibrillation during the examination. 03/06/2022: Calculated LV ejection Fraction = 50% (three dimensional volumes). The left ventricular cavity size is moderately enlarged. The LV wall thickness is normal. There is no left ventricular mural thrombus. RCA and/or Lcx regional wall motion abnormality. The left ventricular diastolic function is mildly abnormal (grade I). The left atrium is mildly enlarged. Mild aortic valve stenosis. Mild aortic valve regurgitation. The proximal ascending thoracic aorta is moderately enlarged (4.8 cm). 09/15/2021: Qualitative LV ejection Fraction = 40%. The left ventricular cavity size is moderately enlarged. The LV wall thickness is mildly increased (concentric). There is no left ventricular mural thrombus. RCA and/or Lcx regional wall motion abnormality. The left ventricular diastolic function is mildly abnormal (grade I). Biatrial dilation. Mild aortic valve stenosis is present. Mild aortic valve regurgitation is present. The proximal ascending thoracic aorta is moderately enlarged (4.7 cm). Since prior study dated 06/01/2021, LV systolic function improved. 06/01/2021: The qualitative LV ejection fraction is 30-34% (moderately reduced). The left ventricular cavity size is moderately enlarged. The LV wall thickness is mildly increased (concentric). There is no left ventricular mural thrombus. RCA and/or Lcx regional wall motion abnormality. Biatrial dilation. The aortic valve is possibly bicuspid. Doppler data suggests mild aortic stenosis. However visual inspection would suggest higher degree of aortic stenosis. Given his cardiomyopathy low output low gradient aortic stenosis should be considered. Moderate to severe mitral regurgitation. The proximal ascending thoracic aorta is moderately enlarged. The proximal inferior vena cava is dilated. Moderately elevated right ventricular systolic pressure. GREGOR: 10/29/2023: The qualitative LV ejection fraction is 35-39% (moderately reduced). The right ventricular cavity size is enlarged (basal dimension > 4.2 cm RV apical 4 chamber view). The right ventricular systolic function is qualitatively normal. Moderate aortic valve regurgitation is present. Moderate aortic valve stenosis is present. Severity of aortic valve stenosis is underestimated low-flow low gradient aortic valve stenosis. Severe mitral regurgitation is present (most likely secondary mitral regurgitation from underlying cardiomyopathy). Mild tricuspid regurgitation is present. Cardioversion #1: Energy 200 Joules, resulting rhythm: Sinus bradycardia 06/05/2021: There is no left atrial or left atrial appendage mass or thrombus. The qualitative LV ejection fraction is 25-29% (severely reduced). There is diffuse hypokinesis to akinesis. The left ventricular cavity size is moderately enlarged. The right ventricular cavity size is enlarged (basal dimension > 4.2 cm RV apical 4 chamber view). The right ventricular systolic function is moderately reduced . The left atrium is severely enlarged. Mild aortic valve stenosis is present. Mild to moderate aortic regurgitation is present. There is moderate to severe mitral regurgitation (3-4+). The aortic root (45 mm) and proximal ascending aorta (47 mm) are moderately enlarged. ECGS: Today: Junctional bradycardia 12/09/2023: SB 40bpm Junctional beats 10/29/2023: SB 53bpm APC Nonspecific ST & T wave abnormalities 10/11/2023: AF 103bpm Low voltage 09/25/2023: AF 101bpm 06/06/2021: SB 59bpm 06/05/2021: SR 68bpm 06/01/2021: AF 131bpm Nonspecific T wave abnormalities 05/31/2021: AF 146bpm 05/30/2021: AF 155bpm Cardiac Catheterization: 06/05/2021: Severe single vessel CAD with culprit mid LAD 80% stenosis. * There was a focal 80% stenosis of midLAD s/p successful PCI with a 3.0 x 12 mm Resolute Oren, deployed at [address]. Post dilated with a 3.0 x 6 mm NC balloon. Post intervention has 0% stenosis with AMY 3 flow. * There was a 50% stenosis of mid RCA. Lab Work Reviewed: Component Latest Ref Rng 08/05/2023 10/12/2023 01/20/2024 WBC 4.00 - 10.80 K/uL 5.68 RBC 4.50 - 5.25 M/uL 4.62 HGB 14.0 - 16.8 g/dL 13.9 (L) HCT 40.0 - 48.4 % 41.9 MCV 82.0 - 99.5 fL 90.7 MCH 27.0 - 34.0 pg 30.1 MCHC 32.0 - 36.0 g/dL 33.2 RDW 11.5 - 15.5 % 15.0 PLT 140 - 400 K/uL 188 MPV 6.6 - 11.1 fL 11.9 nRBCs <=0 /100 WBCs 0 BUN 6 - 20 mg/dL 11 CREATININE 0.6 - 1.2 mg/dL 1.0 EGFR >=60 mL/min 79 SODIUM 135 - 146 mmol/L 139 POTASSIUM 3.5 - 5.1 mmol/L 4.5 CHLORIDE 98 - 107 mmol/L 106 CO2 22 - 32 mmol/L 24 ANION GAP 7 - 15 mmol/L 9 GLUCOSE 70 - 120 mg/dL 90 CALCIUM 8.4 - 10.2 mg/dL 9.5 CHOLESTEROL-Outside Lab 0 - 200 MG/DL 166 TRIGLYCERIDES-OUTSIDE LAB 0 - 150 MG/DL 105 HDLD - OUTSIDE LAB SEE COMMENT MG/DL 51 HDLD - OUTSIDE LAB SEE COMMENT RATIO 3.3 LDL (DIRECT MEASURE)-OUTSIDE LAB 0 - 130 MG/DL 111 CALCULATED VLDL - OUTSIDE LAB SEE COMMENT MG/DL 21.0 NON-HDL - OUTSIDE LAB SEE COMMENT MG/DL 115 TSH REFLEX - OUTSIDE LAB 0.50 - 6.00 uIU/mL 2.57 Magnesium 1.5 - 2.6 mg/dL 2.2 Phosphorus 2.5 - 4.8 mg/dL 3.9 ASSESSMENT: TBS Junctional bradycardia CAD s/p DALE x1 to mLAD 06/05/2021 Moderate to severe Moderate AI Persistent AF s/p DCCV 06/06/2021 [id number] (age, CHF) Chronic heart failure with reduced EF-NYHA Class II ICM EF was down to 25% at one time most recent echo 40% HLD Thoracic aortic aneurysm Pulmonary HTN PLAN: -I reviewed the cardiac conduction system with the patient and how it relates to his condition of TBS -Recommend dual chamber ppm -Discussed procedure and risks which include but are not limited to arrhythmias, strokes, heart attacks, high risk injury to with blood vessels, lungs where he would need a chest tube or chamber of the heart where he would need a pericardiocentesis, , bleeding and infection with the patient; he expressed an understanding and wish to proceed. -Procedure 02/11 at [facility] due to his insurance -Hold eliquis 2 doses -Lab work today -Device and wound check 1 week after the procedure -Continue ASA, losartan -Probably after the ppm would increase toprol to 25mg daily -EP f/u in September Fabienne Pa DO documented in this encounter Nursing Notes * Gwendolyn Eldridge NRCMA - 02/06/2024 3:09 PM EDT Patient was identified by name and date of . Examination Room: 12 Name: Richard Holt Date of : (1950). Reason for Visit: consult Interim Hospitalization(s): none Problems/Concerns: SOB, lightheaded Chest Pain/SOB: yes SOB, no CP Medications reviewed and are up to date via: [employer] [facility] is a way you can talk to your provider online through e-mail. Would you like to sign up? I can activate it for you? DECLINES Do you have video visit capabilities (email and smart phone)? No. Would you be interested in 6 or 12 return visit being scheduled as a video visit if the provider approves? No Patient was instructed to not get up on the exam table/exam chair until directed and assisted by their provider; patient is to remain seated in the chair/ wheelchair/ exam table/ exam chair for fall prevention and safety reasons. Patient is aware to have assistance to step down off exam table/exam chair with personnel. Patient voiced full comprehension of instructions. ELIZABETH Garcia documented in this encounter Plan of Treatment Upcoming Encounters Date Type Department Care Team (Late st Contact Info) Description 02/19/2024 10:30 AM EDT Cardiac Studies Akshat Perkins [address] [id number] [facility] [address] [id number] 02/19/2024 1:30 PM EDT Office Visit Akshat Perkins [address] [address] [facility] [address] [address] 03/31/2024 1:30 PM EST Office Visit Cardiology, [place] [address] [place] [address] Tacos Talbot DO [address] [place] [address] 09/21/2024 3:00 PM EDT Office Visit Cardiology, [place] [address] [place] [place] [address] Jyoti Blackwood CRNP [address] [place] [place] [address] Health Maintenance Due Date Last Done Comments [...] this encounter Medical Devices Implanted Type Area Funeral Director And Embalmer Device Identifier Shelf Expiration Date Model / Serial / Lot Stent Murdo 3.0x12 Rx - [id number] Implanted:Qty: 1 on 06/05/2021 by Arvind Denney DO at [facility] [employer] : VASCULAR [id number] 11/14/2023 [id number] / / [id number] documented as of this encounter Results * CBC (02/06/2024 4:39 PM EDT) WBC 7.32 4.00 - 10.80 K/uL 02/06/2024 10:52 PM EDT [facility] RBC 4.84 4.50 - 5.25 M/uL 02/06/2024 10:52 PM EDT [facility] HGB 15.4 14.0 - 16.8 g/dL 02/06/2024 10:52 PM EDT [facility] HCT 46.4 40.0 - 48.4 % 02/06/2024 10:52 PM EDT [facility] MCV 95.9 82.0 - 99.5 fL 02/06/2024 10:52 PM EDT [facility] MCH 31.8 27.0 - 34.0 pg 02/06/2024 10:52 PM EDT [facility] MCHC 33.2 32.0 - 36.0 g/dL 02/06/2024 10:52 PM EDT [facility] RDW 15.0 11.5 - 15.5 % 02/06/2024 10:52 PM EDT [facility] PLT 180 140 - 400 K/uL 02/06/2024 10:52 PM EDT [facility] MPV 13.4 6.6 - 11.1 fL 02/06/2024 10:52 PM EDT [facility] nRBCs 0 <=0 /100 WBCs 02/06/2024 10:52 PM EDT [facility] Blood Venous blood specimen / Unknown Venipuncture / Unknown 02/06/2024 4:39 PM EDT 02/06/2024 4:41 PM EDT Fabienne Pa DO LAB BLOOD ORDER [facility] [address] [place] [address] * BASIC METABOLIC PANEL (02/06/2024 4:39 PM EDT) BUN 20 6 - 20 mg/dL 02/07/2024 1:38 AM EDT [facility] CREATININE 1.1 0.6 - 1.2 mg/dL 02/07/2024 1:38 AM EDT [facility] EGFR 69 >=60 mL/min 02/07/2024 1:38 AM EDT [facility] Comment:eGFR is calculated b ased on the CKD-EPI 2020 equation. SODIUM 138 135 - 146 mmol/L 02/07/2024 1:38 AM EDT [facility] POTASSIUM 5.0 3.5 - 5.1 mmol/L 02/07/2024 1:38 AM EDT [facility] CHLORIDE 104 98 - 107 mmol/L 02/07/2024 1:38 AM EDT [facility] CO2 24 22 - 32 mmol/L 02/07/2024 1:38 AM EDT LABORATORY C ANION GAP 10 7 - 15 mmol/L 02/07/2024 1:38 AM EDT LABORATORY C GLUCOSE 79 70 - 120 mg/dL 02/07/2024 1:38 AM EDT [facility] CALCIUM 9.9 8.4 - 10.2 mg/dL 02/07/2024 1:38 AM EDT LABORATORY C Blood Venous blood specimen / Unknown Venipuncture / Unknown 02/06/2024 4:39 PM EDT 02/06/2024 4:41 PM EDT Fabienne Pa DO LAB BLOOD ORDER [facility] C [address] [place] [address] documented in this encounter Visit Diagnoses Diagnosis Junctional bradycardia- Primary Other specified cardiac dysrhythmias Tachy-garland syndrome (HCC) Sinoatrial node dysfunction Coronary artery disease involving [place] coronary artery of [place] heart without angina pectoris HFrEF (heart failure [...] the patient have Health Care Power of Dirt Bike Racer? Yes, in chart and reviewed as current [...] Advance Directives occurred with: Patient Care Teams Bracelet Maker Novelty Relationship Specialty Start Date End Date Tg Higgins MD [address] [facility] [place] [address] PCP - General Family Medicine 03/06/17 documented as of this encounter"
--- OUTSIDE RECORDS SUMMARY | 2024-02-12 18:29 | External Medical Summary | Summary of Care ---
Author Name Unknown Organization [facility] Address [address] [place] [address] Phone [phone] Care Team Providers Care Solar Mechanical Engineer Name Role Phone Tg Higgins MD Primary Care Provider + Reason for Visit * Precert (Within 10 days (routine)) - Authorized Specialty Diagnoses / Procedures Referred By Contac t Referred To Contact Cardiac Studies Diagnoses Persistent atrial fibrillation (HCC) HFrEF (heart failure with reduced ejection fraction) (HCC) Procedures ECHO, COMPLETE (2D), TRANS-THORACIC Karla Lane CRNP [address] [place] [address] Referral ID Status Reason Start Date Expiration Date V isits Requested Visits Authorized [id number] Authorized Precert 12/09/2023 [id number] Encounter Details Date Type Department Care Team (Latest Contact Info) Description 12/10/2023 12:44 PM EDT - 12/10/2023 11:59 PM EDT Hospital Encounter Cardiac Studies, [facility] [address] [place] [address] Discharge Disposition: Home - Self Care Allergies Active Allergy Reactions Criticality Noted Date Comments Ceftriaxone Rash Medium 06/06/2021 documented as of this encounter (statuses as of 12/11/2023) Medications Medication Sig Dispensed Refills Start Date [...] the morning. 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.] Care Team (Late st Contact Info) Description 12/23/2023 1:30 PM EDT Office Visit Cardiology, [place] [address] [place] [address] [place] [facility] Card[facility] [address] [place] [address] 02/06/2024 2:15 PM EDT Office Visit Cardiology, [place] [address] [place] [address] Fabienne Pa, DO [address] [place] [address] 03/31/2024 1:30 PM EST Office Visit Cardiology, [place] [address] [place] [address] Tacos Talbot, DO [address] [place] [address] Pending Results Name Type Priority Associated Diagnoses Date /Time ECHO, COMPLETE (2D), TRANS-THORACIC Echocardiology Routine Persistent atrial fibrillation (HCC) HFrEF (heart failure with reduced ejection fraction) (HCC) 12/10/2023 2:20 PM EDT Health Maintenance Due Date Last Done Comments Depression Screening 1962 Hepatitis C Screening 1967 DTaP,Tdap,and Td Vaccines (1 - Tdap) 1968 Colonoscopy 1994 Fecal Occult Blood Test 1994 Sigmoidoscopy 1994 HbA1c 06/03/2022 06/03/2021, 05/13, 01/10/2021, Additional history exists Zoster Vaccines (2 of 2) 05/12/2023 03/17/2023 COVID-19 Vaccine (2022-24 season) 2023 03/17/2023, 03/12/2022, 03/16/2021, Additional history exists Influenza Vaccine (FLU shot) (#1) 2024 02/01/2023 Cologuard 06/22/2024 06/22/2021, 06/15/2021 Colorectal Cancer Screening 06/22/2024 Pneumococcal Vaccine: 65+ Years Completed 02/01/2023 HPV (Gardasil) Vaccine Aged Out No lo nger eligible based on patient's age to complete this topic Hepatitis B Vaccine Aged Out No longe r eligible based on patient's age to complete this topic MENINGOCOCCAL (MENACTRA/MENVEO) Aged Out No longer eligible based on patient's age to complete this topic documented as of this encounter Medical Devices Implanted Type Area Hat Binder Device Identifier Shelf Expiration Date Model / Serial / Lot Stent [place] 3.0x12 Rx - [id number] Implanted:Qty: 1 on 06/05/2021 by Arvind Denney DO [place] [facility] [place] [employer] [place] [id number] 11/14/2023 [id number] X / / [id number] documented as of this encounter Visit Diagnoses Diagnosis Persistent atrial fibrillation (HCC) Atrial fibrillation HFrEF (heart failure with reduced ejection fraction) (HCC) documented in this encounter Advance Directives * [...] the patient have Health Care Power of Erp Pm? Yes, in chart and reviewed as current [...] Advance Directives occurred with: Patient Care Teams Solar Mechanical Engineer Relationship Specialty Start Date End Date Tg Higgins MD [address] [facility] [place] [address] PCP - General Family Medicine 03/06/17 documented as of this encounter
--- OUTSIDE RECORDS SUMMARY | 2024-02-12 18:29 | External Medical Summary | Summary of Care ---
Author Name Unknown Organization [facility] Address [address] [place] [address] Phone [phone] Care Team Providers Care Cytopathology Technologist Name Role Phone Tg Higgins MD Primary Care Provider + Reason for Visit * Reason Onset Date Comments Medication Question 01/06/2024 Cost assista nce for Jardiance Encounter Details Date Type Department Care Team ([facility] st Contact Info) Description 01/06/2024 Telephone Cardiology, [place] [address] [place] [address] [facility] [address] [place] [address] Medication Question (Cost assistance for J... Allergies Active Allergy Reactions Criticality Noted Date Comments Ceftriaxone Rash Medium 06/06/2021 documented as of this encounter (statuses as of 01/06/2024) Medications Medication Sig Dispensed Refills Start Date [...] as of this encounter (statuses as of 01/06/2024) Active Problems Problem Noted Date Diagnosed Date HFrEF (heart failure with reduced ejection fract ion) 10/11/2023 Paroxysmal atrial fibrillation 10/11/2023 Coronary artery disease invo lving [place] coronary artery of [place] heart without angina pectoris 10/11/2023 Acute systolic [...] as of this encounter (statuses as of 01/06/2024) Resolved Problems Problem Noted Date Diagnosed Date Resolved Date Near syncope 10/11/2023 10/12/2023 Left against medical advice 06/01/2021 06/02/2021 Atrial fibrillation with RVR 05/31/2021 06/04/2021 documented as of this encounter (statuses as of 01/06/2024) Immunizations Name Administration Dates Next Due COVID-19 mRNA, LNP-s, No Pre serve, 2-Dose Series ([facility]) 08/27/2020,08/05/2020 documented as of this encounter Social [...] encounter Miscellaneous Notes * Telephone Encounter - Kristal Graham [facility] - 01/06/2024 1:36 PM EDT Patient requiring cost assistance for Jardiance 10 mg daily. Over income for [employer]. Previously qualified with [employer] for [employer], so may be an option. Thank you, Kristal documented in this encounter Plan of Treatment Upcoming Encounters Date Type Department Care Team (Late st Contact Info) Description 01/22/2024 1:00 PM EDT Office Visit Cardiology, [place] [address] [place] [address] [place] [facility] Cardiology [address] [place] [address] 02/06/2024 2:15 PM EDT Office Visit Cardiology, [place] [address] [place] [address] Fabienne Pa, DO [address] [place] [address] 03/31/2024 1:30 PM EST Office Visit Cardiology, [place] [address] [place] [address] Tacos Talbot, DO [address] [place] [address] Health Maintenance Due Date Last Done Comments [...] this encounter Medical Devices Implanted Type Area Event Planning Intern Device Identifier Shelf Expiration Date Model / Serial / Lot Stent [place] 3.0x12 Rx - [id number] Implanted:Qty: 1 on 06/05/2021 by Arvind Denney DO [place] [facility] [employer] [place] [id number] 11/14/2023 [id number] X / / [id number] documented as of this encounter Advance Directives [...] the patient have Health Care Power of Radiologic Technology Instructor? Yes, in chart and reviewed as current [...] Advance Directives occurred with: Patient Care Teams Cytopathology Technologist Relationship Specialty Start Date End Date Tg Higgins MD [address] [facility] [place] [address] PCP - General Family Medicine 03/06/17 documented as of this encounter
--- OUTSIDE RECORDS SUMMARY | 2024-02-12 18:29 | External Medical Summary | Summary of Care ---
Author Name Unknown Organization [facility] Address [address] [place] [address] Phone [phone] Care Team Providers Care Press Tender Long Goods Name Role Phone Tg Higgins MD Primary Care Provider + Reason for Visit * Reason Comments Dosage Adjustment In Person (Anticoag Cl inic) Congestive Heart Failure Encounter Details Date Type Department Care Team ([facility] st Contact Info) Description 01/06/2024 1:10 PM EDT Office Visit Cardiology, [place] [address] [place] [address] [facility] Cardiology [address] [place] [address] Ischemic cardiomyopathy* Allergies Active Allergy Reactions Criticality Noted Date [...] the morning. 90 Tablet 3 01/06/2024 Active Empagliflozin 10 MG Oral Tablet (Jardiance) Take 1 Tablet by mouth in the morning. 90 Tablet 3 01/06/2024 01/06/2024 Discontinued documented as of this encounter (statuses as of 01/06/2024) Active Problems Problem Noted Date Diagnosed Date HFrEF (heart failure with reduced ejection fract ion) 10/11/2023 Paroxysmal atrial fibrillation 10/11/2023 Coronary artery disease invo lving [place] coronary artery of [place] heart without angina pectoris 10/11/2023 Acute systolic [...] mRNA, LNP-s, No Pre serve, 2-Dose Series ([employer]) 08/27/2020,08/05/2020 documented as of this encounter Social [...] Sign Reading Time Taken Comments Blood Pressure 116/63 01/06/2024 1:13 PM EDT Pulse 44 01/06/2024 1:13 PM EDT Temperature - - Respiratory Rate - - Oxygen Saturation - - Inhaled Oxygen Concentration - - Weight - - Height - - Body Mass Index - - documented in this encounter Functional Status Functional [...] this encounter Patient Instructions * Patient Instructions* Mariella Graham RPh - 01/06/2024 1:19 PM EDT START Jardiance 10 mg daily Get labs in 2 weeks, prior to next appt documented in this encounter Miscellaneous Notes * Addendum Note - Mariella Graham RPh - 01/06/2024 2:31 PM EDTAddended by: MARIELLA GRAHAM on: 01/06/2024 02:31 PM Modules accepted: Orders documented in this encounter Plan of Treatment Upcoming Encounters Date Type Department Care Team (Late st Contact Info) Description 01/22/2024 1:00 PM EDT Office Visit [place] [address] [place] [address] [place] [facility] Cardiology [address] [place] [address] 02/06/2024 2:15 PM EDT Office Visit [place] [address] [place] [address] Fabienne Pa DO [address] [place] [address] 03/31/2024 1:30 PM EST Office Visit [place] [address] [place] [address] Tacos Talbot DO [address] [place] [address] Scheduled Orders Name Type Priority Associated Diagnoses Orde r Schedule BASIC METABOLIC PANEL Lab Routine Ischemic cardiomyopathy Expected: 01/16/2024, Expires: 01/05/2025 Health Maintenance Due Date Last Done Comments Depression Screening 1962 Hepatitis C Screening 1967 DTaP,Tdap,and Td Vaccines (1 - Tdap) 1968 Colonoscopy 1994 Fecal Occult Blood Test 1994 Sigmoidoscopy 1994 HbA1c 06/03/2022 06/03/2021, 05/13, 01/10/2021, Additional history exists Zoster Vaccines (2 of 2) 05/12/2023 03/17/2023 COVID-19 Vaccine ( - season) 2023 03/17/2023, 03/12/2022, 03/16/2021, Additional history [...] this encounter Medical Devices Implanted Type Area Pharmacy Graduate Intern Device Identifier Shelf Expiration Date Model / Serial / Lot Stent [place] 3.0x12 Rx - [id number] Implanted:Qty: 1 on 06/05/2021 by Arvind Denney DO at [facility] [place] [employer] : VASCULAR [id number] 11/14/2023 [id number] X / / [id number] documented as of this encounter Visit Diagnoses Diagnosis Ischemic cardiomyopathy- Primary Other specified forms of chronic ischemic heart disease documented in this encounter Advance Directives * [...] the patient have Health Care Power of Legal Aide? Yes, in chart and reviewed as current [...] Advance Directives occurred with: Patient Care Teams Press Tender Long Goods Relationship Specialty Start Date End Date Tg Higgins MD [address] [facility] [place] [address] PCP - General Family Medicine 03/06/17 documented as of this encounter
--- OUTSIDE RECORDS SUMMARY | 2024-02-12 18:29 | External Medical Summary | Summary of Care ---
Author Name Unknown Organization [facility] Address [address] [place] [address] Phone [phone] Care Team Providers Care Secretarial Stenographer Name Role Phone Tg Higgins MD Primary Care Provider + Encounter Details Date Type Department Care Team (Late st Contact Info) Description 12/12/2023 Orders Only PATIENT PORTAL DO NOT DELETE THIS DEPT USED BY [place] [address] Allergies Active Allergy Reactions Criticality Noted Date Comments Ceftriaxone Rash Medium 06/06/2021 documented as of this encounter (statuses as of 12/12/2023) Medications Medication Sig Dispensed Refills Start Date [...] as of this encounter (statuses as of 12/12/2023) Active Problems Problem Noted Date Diagnosed Date HFrEF (heart failure with reduced ejection fract ion) 10/11/2023 Paroxysmal atrial fibrillation 10/11/2023 Coronary artery disease invo lving [place] coronary artery of [place] heart without angina pectoris 10/11/2023 Acute systolic [...] as of this encounter (statuses as of 12/12/2023) Resolved Problems Problem Noted Date Diagnosed Date Resolved Date Near syncope 10/11/2023 10/12/2023 Left against medical advice 06/01/2021 06/02/2021 Atrial fibrillation with RVR 05/31/2021 06/04/2021 documented as of this encounter (statuses as of 12/12/2023) Immunizations Name Administration Dates Next Due COVID-19 mRNA, LNP-s, No Pre serve, 2-Dose Series ([facility]) 08/27/2020,08/05/2020 documented as of this encounter Social [...] Description 12/23/2023 1:30 PM EDT Office Visit [facility] [address] [place] [address] [facility] [address] [place] [address] 02/06/2024 2:15 PM EDT Office Visit [place] [address] [place] [address] [place] Fabienne Zora, DO [address] [place] [address] 03/31/2024 1:30 PM EST Office Visit Cardiology, [place] [address] [place] [address] Tacos Talbot, [address] [place] [address] Health Maintenance Due Date Last Done Comments Depression Screening 1962 Hepatitis C Screening 1967 DTaP,Tdap,and Td Vaccines (1 - Tdap) 1968 Colonoscopy 1994 Fecal Occult Blood Test 1994 Sigmoidoscopy 1994 HbA1c 06/03/2022 06/03/2021, 05/13, 01/10/2021, Additional history exists Zoster Vaccines (2 of 2) 05/12/2023 03/17/2023 COVID-19 Vaccine ( season) 2023 03/17/2023, 03/12/2022, 03/16/2021, Additional history [...] this encounter Medical Devices Implanted Type Area Crocheter Hand Device Identifier Shelf Expiration Date Model / Serial / Lot Stent [place] 3.0x12 Rx - [id number] Implanted:Qty: 1 on 06/05/2021 by Arvind Denney DO at [facility] [place] [employer] : VASCULAR [id number] 11/14/2023 [id number] X / / [id number] documented as of this encounter Advance Directives [...] the patient have Health Care Power of House Mover Supervisor? Yes, in chart and reviewed as current [...] Advance Directives occurred with: Patient Care Teams Secretarial Stenographer Relationship Specialty Start Date End Date Tg Higgins MD [address] [facility] [place] [address] PCP - General Family Medicine 03/06/17 documented as of this encounter
--- OUTSIDE RECORDS SUMMARY | 2024-02-12 18:29 | External Medical Summary | Summary of Care ---
Author Name Unknown Organization [facility] Address [address] [place] [address] Phone [phone] Care Team Providers Care Simplex Printer Installer Name Role Phone Tg Higgins MD Primary Care Provider + Reason for Visit * Reason Onset Date Comments Advice 01/08/2024 Encounter Details Date Type Department Care Team ([facility] st Contact Info) Description 01/08/2024 Telephone [facility]iology [facility] [address] [facility] [place] [address] Tacos Talbot, [address] [place] [address] Advice Allergies Active Allergy Reactions Criticality Noted Date Comments Ceftriaxone Rash Medium 06/06/2021 documented as of this encounter (statuses as of 01/08/2024) Medications Medication Sig Dispensed Refills Start Date [...] as of this encounter (statuses as of 01/08/2024) Active Problems Problem Noted Date Diagnosed Date HFrEF (heart failure with reduced ejection fract ion) 10/11/2023 Paroxysmal atrial fibrillation 10/11/2023 Coronary artery disease invo lving [place] coronary artery of [place] heart without angina pectoris 10/11/2023 Acute systolic [...] as of this encounter (statuses as of 01/08/2024) Resolved Problems Problem Noted Date Diagnosed Date Resolved Date Near syncope 10/11/2023 10/12/2023 Left against medical advice 06/01/2021 06/02/2021 Atrial fibrillation with RVR 05/31/2021 06/04/2021 documented as of this encounter (statuses as of 01/08/2024) Immunizations Name Administration Dates Next Due COVID-19 mRNA, LNP-s, No Pre serve, 2-Dose Series ([employer]) 08/27/2020,08/05/2020 documented as of this encounter Social [...] encounter Miscellaneous Notes * Telephone Encounter - Dolly Figueroa LPN - 01/08/2024 12:37 PM EDT Per Herlinda note 12/08 he was to stop the med and was referred to EP. So yes pt is to remain off, pt informed. * Telephone Encounter - Angel Hampton OSA - 01/08/2024 12:22 PM EDT Person calling: Pt Relationship to patient: Phone/Fax to return call: [phone] Reason for call(brief): med question Pharmacy: Provider Name:Dr Talbot Detailed message to office:Pt asking if should still be off the Amiodarone HCl 200 MG Oral Tablet (Cordarone). Please advise. documented in this encounter Plan of Treatment Upcoming Encounters Date Type Department Care Team (Late st Contact Info) Description 01/22/2024 1:00 PM EDT Office Visit [facility] [address] [place] [address] [place] [facility] Cardiology [address] [place] [address] 02/06/2024 2:15 PM EDT Office Visit [place] [address] [place] [address] Fabienne Pa DO [address] [place] [address] 03/31/2024 1:30 PM EST Office Visit [place] [address] [place] [address] Tacos Talbot DO [address] [place] [address] Health Maintenance Due Date Last Done Comments [...] this encounter Medical Devices Implanted Type Area Mechanical Design Engineer Device Identifier Shelf Expiration Date Model / Serial / Lot Stent [place] 3.0x12 Rx - [id number] Implanted:Qty: 1 on 06/05/2021 by Ar[place]ind Denney DO [place] [facility] [place] [employer] [place] [id number] 11/14/2023 [id number] X / / [id number] documented as of this encounter Advance Directives [...] the patient have Health Care Power of Induction Furnace Operator? Yes, in chart and reviewed as current * Full Code Date Activated Date Inactivated Comments 06/02/2021 5:24 PM 06/06/2021 4:07 PM This order r eflects the patients wishes and were consensually agreed upon. * Full Code Date Activated Date Inactivated Comments 06/01/2021 3:42 PM 06/02/2021 5:15 PM This order reflects the patients wishes and were consensually agreed upon. Question Answer Comments Discussion of Advance Directives occurred with: Patient * Full Code Date Activated Date Inactivated Comments 05/31/2021 12:54 PM 06/01/2021 12:09 PM This order reflects the patients wishes and were consensually agreed upon. Question Answer Comments Discussion of Advance Directives occurred with: Patient Care Teams Simplex Printer Installer Relationship Specialty Start Date End Date Tg Higgins MD [address] [place] [address] PCP - General Family Medicine 03/06/17 documented as of this encounter
--- OUTSIDE RECORDS SUMMARY | 2024-02-12 18:29 | External Medical Summary ---
Author Name Unknown Address Unknown Organization K01:[facility] [place] [facility] [address] [facility] [address] [facility] [address] Laboratory Report Ordering Provider Test Date Status EMILIANO STEVENSON 12/20/2023 13:39:37 Final Observation Date Value Abnormality Reference (Units ) Status BUN 12/20/2023 13:39:37 17 6-20 (mg/dL) Final Creatinine 12/20/2023 13:39:37 1.0 0.6-1.2 (mg/dL) Final Glomerular filtration rate/1.73 sq M.predicted [Volume Rate/Area] in Serum, Plasma or Blood by Creatinine-based formula (CKD-EPI) 12/20/2023 13:39:37 76 >=60 (mL/min) Final eGFR is calculated based on the CKD-EPI 2020 equation. Sodium 12/20/2023 13:39:37 138 135-146 (m mol/L) Final Potassium 12/20/2023 13:39:37 4.5 3.5-5.1 (m mol/L) Final Cl 12/20/2023 13:39:37 106 98-107 (mm ol/L) Final CO2 12/20/2023 13:39:37 24 22-32 (mmo l/L) Final Anion gap 12/20/2023 13:39:37 8 7-15 (mmol /L) Final Glucose 12/20/2023 13:39:37 87 70-120 (mg /dL) Final Calcium 12/20/2023 13:39:37 9.2 8.4-10.2 ( mg/dL) Final Performing Location [facility] [place] [address] [facility] [address]
--- OUTSIDE RECORDS SUMMARY | 2024-02-12 18:29 | External Medical Summary | Summary of Care ---
Author Name Unknown Organization [facility] Address [address] [place] [address] Phone [phone] Care Team Providers Care Marketing Senior Recruiter Name Role Phone Tg Higgins MD Primary Care Provider + Reason for Visit * Reason Comments Dosage Adjustment In Person (Anticoag Cl inic) Congestive Heart Failure * Evaluate & Treat - Unlimited Visits (Within 3 days (urgent)) - Authorized Specialty Diagnoses / Procedures Referred By Hakeem wheeler Referred To Contact Pharmacist / Pharmacy Diagnoses Persistent atrial fibrillation (HCC) HFrEF (heart failure with reduced ejection fraction) ([facility]) Karla Lane CRNP [address] [place] [address] Referral ID Status Reason Start Date Expiration Date Visits Requested Visits Authorized [id number] Authorized Specialty Services Required 12/09/2023 06/06/2024 99 99 Encounter Details Date Type Department Care Team ([facility] Contact Info) Description 12/23/2023 1:30 PM EDT Office Visit [facility] [address] [place], [place] [phone] [facility] Cardiology [address] [place], [place] [phone] HFrEF (heart failure with reduced ejection fraction) ([facility])* Allergies Active Allergy Reactions Criticality Noted Date Comments Ceftriaxone Rash Medium 06/06/2021 documented as of this encounter (statuses as of 12/24/2023) Medications Medication Sig Dispensed Refills Start Date End Date Status BENJAMIN 0.01 % ophthalmic solution APPLY 1 DROP [...] as of this encounter (statuses as of 12/24/2023) Active Problems Problem Noted Date Diagnosed Date HFrEF (heart failure with reduced ejection fract ion) 10/11/2023 Paroxysmal atrial fibrillation 10/11/2023 Coronary artery disease invo lving [place] coronary artery of [place] heart without angina pectoris 10/11/2023 Acute systolic [...] as of this encounter (statuses as of 12/24/2023) Resolved Problems Problem Noted Date Diagnosed Date Resolved Date Near syncope 10/11/2023 10/12/2023 Left against medical advice 06/01/2021 06/02/2021 Atrial fibrillation with RVR 05/31/2021 06/04/2021 documented as of this encounter (statuses as of 12/24/2023) Immunizations Name Administration Dates Next Due COVID-19 mRNA, LNP-s, No Pre serve, 2-Dose Series (Divshot) 08/27/2020,08/05/2020 documented as of this encounter Social [...] Sign Reading Time Taken Comments Blood Pressure 98/58 12/23/2023 4:48 PM EDT Pulse - - Temperature - - Respiratory Rate - - [...] this encounter Patient Instructions * Patient Instructions* rKistal Graham RPh - 12/23/2023 2:01 PM EDT Take metoprolol at night Take losartan in the morning documented in this encounter Progress Notes * Kristal Graham RPh - 12/23/2023 1:31 PM EDT PHARMACY CHRONIC DISEASE MANAGEMENT - HEART FAILURE Richard Holt is an 73 year old patient referred to the Heart Failure [place] clinic by AURORA Jaen-Baptiste for the following: General heart failure medication [...] at home? no Any dizziness or lightheadedness: Yes, daily Home BP log results: N/A Does patient monitor HR at home? no Home HR log results: N/A Does patient monitor weight at home? yes Any increased edema or shortness of breath: Has SOB, sometimes when resting. Denies edema Home weight log results: 220 lb, stable Objective: BP Readings from Last 3 Encounters: 12/23/23 98/58 12/09/23 111/63 10/29/23 113/80 Pulse Readings from Last 3 Encounters: 12/09/23 47 10/29/23 75 10/22/23 112 Wt Readings from Last 3 Encounters: 12/09/23 100 kg (220 lb 8 oz) 10/29/23 98.9 kg (218 lb) 10/22/23 98.9 kg (218 lb) Lab Results Component Value Date/Time CREATININE - [facility] 1.0 12/20/2023 01:39 PM CREATININE - [facility] 1.0 10/12/2023 03:24 AM CREATININE - [facility] 1.1 10/11/2023 11:08 AM CREATININE-OUTSIDE LAB 1.0 08/05/2023 10:06 AM CREATININE-[facility] LAB 0.9 07/13/2022 01:16 PM CREATININE-OUTSIDE LAB 0.9 12/29/2021 01:10 PM Lab Results Component Value Date/Time SODIUM - [facility] 138 12/20/2023 01:39 PM SODIUM - [facility] 138 10/12/2023 03:24 AM SODIUM - [facility] 140 10/11/2023 11:08 AM SODIUM-OU[facility]IDE LAB 141 08/05/2023 10:06 AM SODIUM-[facility] 140 07/13/2022 01:16 PM SODIUM-OUTSIDE LAB 140 12/29/2021 01:10 PM Lab Results Component Value Date/Time POTASSIUM - [facility] 4.5 12/20/2023 01:39 PM POTASSIUM - [facility] 4.2 10/12/2023 03:24 AM POTASSIUM - [facility] 4.8 10/11/2023 11:08 AM POTASSIUM-OUTSIDE LAB 4.7 08/05/2023 10:06 AM POTASSIUM-OUTSIDE LAB 4.1 07/13/2022 01:16 PM POTASSIUM-OUTSIDE LAB 4.2 12/29/2021 01:10 PM Lab Results Component Value Date/Time HGB 13.9 (L) 10/12/2023 03:24 AM HGB 14.6 10/11/2023 11:08 AM HGB 14.0 08/05/2023 10:06 AM HGB 43.7 08/05/2023 10:06 AM HGB 15.5 07/13/2022 01:16 PM HGB 46.3 07/13/2022 01:16 PM HGB 15.0 12/29/2021 01:10 PM HGB 44.6 12/29/2021 01:10 PM Diet Review: Today I discussed with patient the importance of diet restrictions for patients with heart failure,including: Low sodium diet, 2 grams of sodium per day Current Heart Failure Medication(s): Losartan 25 mg daily Metoprolol ER 12.5 mg daily Crestor 5 mg daily Eliquis 5 mg twice daily Aspirin 81 mg daily Eligible for XATA Order pharmacy? Agree or Declined? Denies Assessment & Plan: HFrEF - Most recent EF 40% -Change losartan to morning -Change metoprolol to bedtime Entresto discontinued during [facility] hospitalization 10/11/23-10/12/23 due to nausea, diaphoresis, and hypotension with SBP in 70s. During this visit patient had afib with RVR. Patient does not monitor BP/HR at home and feels dizzy on a daily basis. BP in clinic today 98/58. GDMT optimization limited by symptomatic hypotension. Discussed SGLT2i but will hold off at this time due to the above. Patient reports taking both losartan and metoprolol at noon each day. Recommended patient take losartan in the morning and metoprololbefore bed to see if this helps the dizziness. If SGLT2 or re-trial of Entresto were pursued, would need to reapply for linda. 2. CAD -DALE x1 mLAD, has 50% RCA stenosis 06/05/21 3. Moderate-Severe Aortic Stenosis 4. Moderate Aortic Regurgitation 5. Persistent AFIB -GREGOR/DCCV 10/29/23 -DCCV 06/06/2021 -CHADVASC 2 (age, CHF) -Eliquis Medication Changes: none Labs Due: none Vaccines Due: Not reviewed Follow up: 2 weeks I spent a total of 20-29 minutes (exact time 22 mins) on the date of service in preparation, delivery, and documentation of the care provided to Richard Holt excluding any time spent in the performance of separately billed services or time spent by another provider/QHP. Kristal Graham, [facility] Clinical Pharmacist Medication Therapy Disease Management 12/23/2023,1:34 PM documented in this encounter Plan of Treatment Upcoming Encounters Date Type Department Care Team (Late st Contact Info) Description 01/06/2024 1:10 PM EDT Office Visit Cardiology, [place] [address] [place] [address] [facility] Cardiology [address] [facility] [place] [address] 02/06/2024 2:15 PM EDT Office Visit Cardiology, [place] [address] [place] [address] Fabienne Pa, DO [address] [place] [address] 03/31/2024 1:30 PM EST Office Visit Cardiology, [place] [address] [place] [address] Tacos Talbot, DO [address] [facility] [place] [address] Scheduled Referrals Name Type Priority Associated Diagnoses Orde r Schedule PHARMACIST MEDS THERAPY MGMT REFERRAL OP Referral Within 3 days (urgent) Persistent atrial fibrillation (HCC) HFrEF (heart failure with reduced ejection fraction) (HCC) Ordered: 12/09/2023 Health Maintenance Due Date Last Done Comments [...] this encounter Medical Devices Implanted Type Area Class C Truck Driver Device Identifier Shelf Expiration Date Model / Serial / Lot Stent [place] 3.0x12 Rx - [id number] Implanted:Qty: 1 on 06/05/2021 by Arvind Denney DO at [facility] [employer] : VASCULAR [id number] 11/14/2023 [id number] / / [id number] documented as of this encounter Visit Diagnoses Diagnosis HFrEF (heart failure with reduced ejection fraction) (HCC)- Primary documented in this encounter Advance Directives [...] the patient have Health Care Power of Brim Ironer Hand? Yes, in chart and reviewed as current [...] Advance Directives occurred with: Patient Care Teams Marketing Senior Recruiter Relationship Specialty Start Date End Date Tg Higgins MD [address] [facility] [place] [address] PCP - General Family Medicine 03/06/17 documented as of this encounter
--- OUTSIDE RECORDS SUMMARY | 2024-02-12 18:29 | External Medical Summary | Summary of Care ---
Author Name Unknown Organization [facility] Address [address] [place] [address] Phone [phone] Care Team Providers Care Internet Technology Manager Name Role Phone Tg Higgins MD Primary Care Provider + Reason for Visit * Reason Onset Date Comments FYI 10/04/2023 Encounter Details Date Type Department Care Team (Late st Contact Info) Description [facility] [place] [address] Tacos Talbot, [address] [place] [address] FYI Allergies Active Allergy Reactions Criticality Noted Date Comments Ceftriaxone Rash Medium 06/06/2021 documented as of this encounter (statuses as of 01/03/2024) Medications Medication Sig Dispensed Refills Start Date [...] morning and 1 Tablet before bedtime. Active Entresto 24-26 MG Oral Tablet (sacubitril-valsa rtan 24-26 mg per tab) Take 1 Tablet by mouth in the morning and 1 Tablet before bedtime. 180 Tablet 3 07/10/2022 10/12/2023 Discontinued Metoprolol Succinate ER 25 MG Oral Tablet Extended Release 24 Hour (toPROL XL) Take 1 Tablet by mouth in the morning. 90 Tablet 3 08/13/2023 10/22/2023 Discontinued documented as of this encounter (statuses as of 01/03/2024) Active Problems Problem Noted Date Diagnosed Date HFrEF (heart failure with reduced ejection fract ion) 10/11/2023 Paroxysmal atrial fibrillation 10/11/2023 Coronary artery disease invo lving [place] coronary artery of [place] heart without angina pectoris 10/11/2023 Acute systolic [...] as of this encounter (statuses as of 01/03/2024) Resolved Problems Problem Noted Date Diagnosed Date Resolved Date Near syncope 10/11/2023 10/12/2023 Left against medical advice 06/01/2021 06/02/2021 Atrial fibrillation with RVR 05/31/2021 06/04/2021 documented as of this encounter (statuses as of 01/03/2024) Immunizations Name Administration Dates Next Due COVID-19 mRNA, LNP-s, No Pre serve, 2-Dose Series ([employer]) 08/27/2020,08/05/2020 documented as of this encounter Social [...] you have serious difficulty h earing? No 06/01/2021 Are you blind or do you have serious difficulty seeing, even when wearing glasses? No 06/01/2021 Do you have serious difficul ty walking or climbing stairs? (5 years old or older) Yes 06/01/2021 Do you have difficulty dress ing or bathing? (5 years old or older) No 06/01/2021 Because of a physical, menta l, or emotional condition, do you have difficulty doing errands alone such as visiting a doctor s office or shopping? (15 years old or older) No 06/01/19 Cognitive Status Response Date of Assessm ent Because of a physical, menta l, or emotional condition, do you have serious difficulty concentrating, remembering, or making decisions? (5 years old or older) No 06/01/2021 documented as of this encounter Miscellaneous Notes * Telephone Encounter - Michelle Ramirez LPN - 10/08/2023 10:04 AM EDT Pt was given instructions for procedure. I think he was trying to get the \stress test instructions? 09/30/23 2:15 PM Scheduled dobut stress test for 11/06. Attempted to reach pt, no answer no VM 10/01/23 3:48 PM Attempted to contact pt, LM on mobile number w/appt details and request to call back to conf. Will need prep for dobut stress test. * Telephone Encounter - Stacy Rosario OSA - 10/04/2023 1:50 PM EDT Pt came into the office to get his instructions for up coming procedure on 10/11/23. Pt was informedthat nursing was short today and message would be sent to call with information. documented in this encounter Plan of Treatment Upcoming Encounters Date Type Department Care Team (Late st Contact Info) Description 01/06/2024 1:10 PM EDT Office Visit [facility] [address] [place] [address] [facility] Cardiology [address] [place] [address] 02/06/2024 2:15 PM EDT Office Visit Akshat [place] [address] [place] [address] Fabienne Pa, DO [address] [place] [address] 03/31/2024 1:30 PM EST Office Visit Akshat [place] [address] [place] [address] Tacos Talbot, DO [address] [place] [address] Health Maintenance Due Date Last Done Comments [...] this encounter Medical Devices Implanted Type Area Grey Stock Recorder Device Identifier Shelf Expiration Date Model / Serial / Lot Stent [place] 3.0x12 Rx - [id number] Implanted:Qty: 1 on 06/05/2021 by Arvind Denney DO at CARDIAC LABS [facility] [employer] : VASCULAR [id number] 11/14/2023 [id number] / / [id number] documented as of this encounter Advance Directives [...] the patient have Health Care Power of Proofsheet Corrector? Yes, in chart and reviewed as current [...] Advance Directives occurred with: Patient Care Teams Internet Technology Manager Relationship Specialty Start Date End Date Tg Higgins MD [address] [facility] [place] [address] PCP - General Family Medicine 03/06/17 documented as of this encounter
--- OUTSIDE RECORDS SUMMARY | 2024-02-12 18:29 | External Medical Summary | Summary of Care ---
Author Name Unknown Organization [facility] Address [address] [place] [address] Phone [phone] Care Team Providers Care R D Engineer Name Role Phone Tg Higgins MD Primary Care Provider + Reason for Visit * Reason Comments Outpatient Testing Encounter Details Date Type Department Care Team (Late st Contact Info) Description 01/20/2024 2:10 PM EDT Laboratory Laboratory, [facility] [address] [place] [phone] [facility], Lab [address] [place], [place] [phone] Ischemic cardiomyopathy Allergies Active Allergy Reactions Criticality Noted Date Comments Ceftriaxone Rash Medium 06/06/2021 documented as of this encounter (statuses as of 01/20/2024) Medications Medication Sig Dispensed Refills Start Date [...] as of this encounter (statuses as of 01/20/2024) Active Problems Problem Noted Date Diagnosed Date HFrEF (heart failure with reduced ejection fract ion) 10/11/2023 Paroxysmal atrial fibrillation 10/11/2023 Coronary artery disease invo lving [place] coronary artery of [place] heart without angina pectoris 10/11/2023 Acute systolic [...] as of this encounter (statuses as of 01/20/2024) Resolved Problems Problem Noted Date Diagnosed Date Resolved Date Near syncope 10/11/2023 10/12/2023 Left against medical advice 06/01/2021 06/02/2021 Atrial fibrillation with RVR 05/31/2021 06/04/2021 documented as of this encounter (statuses as of 01/20/2024) Immunizations Name Administration Dates Next Due COVID-19 mRNA, LNP-s, No Pre serve, 2-Dose Series ([employer]) 08/27/2020,08/05/2020 documented as of this encounter Social [...] 01/22/2024 1:00 PM EDT Office Visit Cardiology, [place] [address] [place], [place] [address], [place] [address] [facility] Cardiology [address] [place] [address] 02/06/2024 2:15 PM EDT Office Visit Cardiology, [place] [address] [place] [address] Fabienne Pa, DO [address] [place] [address] 03/31/2024 1:30 PM EST Office Visit Cardiology, [place] [address] [place] [address] Tacos Talbot, DO [address] [place] [address] Pending Results Name Type Priority Associated Diagnoses Date /Time BASIC METABOLIC PANEL Lab Routine Ischemic cardiomyopathy 01/20/2024 2:02 PM EDT Health Maintenance Due Date Last Done Comments Depression Screening 1961 Hepatitis C Screening 1967 DTap/Tdap Vaccines (1 - Tdap) 1968 Colonoscopy 1994 Fecal Occult Blood Test 1994 Sigmoidoscopy 1994 HbA1c 06/03/2022 06/03/2021, 05/13, 01/10/2021, Additional history exists Zoster Vaccines (2 of 2) 05/12/2023 03/17/2023 COVID-19 Vaccine (2022- season) 2024 03/17/2023, 03/17/2023, 03/12/2022, Additional history exists Influenza Vaccine (FLU shot) [...] this encounter Medical Devices Implanted Type Area Capacitor Assembler Device Identifier Shelf Expiration Date Model / Serial / Lot Stent Oren 3.0x12 Rx - [id number] Implanted:Qty: 1 on 06/05/2021 by Arvind Denney DO at [facility] [employer] : VASCULAR [id number] 11/14/2023 [id number] / / [id number] documented as of this encounter Visit Diagnoses Diagnosis Ischemic cardiomyopathy Other specified forms of chronic ischemic heart [...] the patient have Health Care Power of Garment Parts Cutter Machine? Yes, in chart and reviewed as current [...] Advance Directives occurred with: Patient Care Teams R D Engineer Relationship Specialty Start Date End Date Tg Higgins MD [address] [facility] [place] [address] PCP - General Family Medicine 03/06/17 documented as of this encounter
--- OUTSIDE RECORDS SUMMARY | 2024-02-12 18:29 | External Medical Summary | Summary of Care ---
Author Name Unknown Organization [facility] Address [address] [place] [address] Phone [phone] Care Team Providers Care Licensed Sales Assistant Name Role Phone Tg Higgins MD Primary Care Provider + Reason for Visit * Reason Comments Dosage Adjustment In Person (Anticoag Cl inic) Congestive Heart Failure Encounter Details Date Type Department Care Team ([facility] st Contact Info) Description 01/06/2024 1:10 PM EDT Office Visit Cardiology, [place] [address] [place] [address] [facility] Cardiology [address] [place] [address] Ischemic cardiomyopathy* Allergies Active Allergy Reactions Criticality [...] fibrillation 10/11/2023 Coronary artery disease invo lving [place] coronary artery of [place] heart without angina pectoris 10/11/2023 Acute systolic [...] this encounter Patient Instructions * Patient Instructions* Kristal Graham RPh - 01/06/2024 1:19 PM EDT START Jardiance 10 mg daily Get labs in 2 weeks, prior to next appt documented in this encounter Plan of Treatment Upcoming Encounters Date Type Department Care Team (Late st Contact Info) Description 01/22/2024 1:00 PM EDT Office Visit Cardiology, [place] [address] [place] [address] [facility] Cardiology [address] [place] [address] 02/06/2024 2:15 PM EDT Office Visit [facility] [address] [place] [address] Fabienne Pa, DO [address] [place] [address] 03/31/2024 1:30 PM EST Office Visit Akshat [place] [address] [place] [address] Tacos Talbot, DO [address] [place] [address] Scheduled Orders Name Type Priority Associated Diagnoses [...] this encounter Medical Devices Implanted Type Area Automation And Control Engineer Device Identifier Shelf Expiration Date Model / Serial / Lot Stent Oren 3.0x12 Rx - [id number] Implanted:Qty: 1 on 06/05/2021 by Arvind Denney DO at [facility] [employer] : VASCULAR [id number] 11/14/2023 [id number] X / / [id number] documented as of this encounter Visit Diagnoses [...] the patient have Health Care Power of Caul Dresser? Yes, in chart and reviewed as current [...] Advance Directives occurred with: Patient Care Teams Licensed Sales Assistant Relationship Specialty Start Date End Date Tg Higgins MD [address] [place] [address] PCP - General Family Medicine 03/06/17 documented as of this encounter
--- OUTSIDE RECORDS SUMMARY | 2024-02-12 18:29 | External Medical Summary | Summary of Care ---
Author Name Unknown Organization [facility] Address [address] [place] [address] Phone [phone] Care Team Providers Care Organ Tuner Electronic Name Role Phone Tg Higgins MD Primary [...] HFrEF (heart failure with reduced ejection fraction) ([facility]) Karla Lane CRNP [address] [place] [address] Referral ID Status Reason Start Date Expiration Date Visits Requested Visits Authorized [id number] Authorized Specialty Services Required 12/09/2023 06/06/2024 99 99 Encounter Details Date Type Department Care Team ([facility] Contact Info) Description 12/23/2023 1:30 PM EDT [place] [address] [place], [place] [phone] [facility] Cardiology [address] [place], [place] [phone] HFrEF (heart failure with reduced ejection fraction) ([facility])* Allergies Active Allergy Reactions Criticality Noted Date [...] fibrillation 10/11/2023 Coronary artery disease invo lving [place] coronary artery of [place] heart without angina pectoris 10/11/2023 Acute systolic [...] mRNA, LNP-s, No Pre serve, 2-Dose Series ([employer]) 08/27/2020,08/05/2020 documented as of this encounter Social [...] * Patient Instructions* Kristal Graham RPh - 12/23/2023 2:01 PM EDT [...] daily Aspirin 81 mg daily Eligible for [facility] Order pharmacy? Agree or Declined? Denies Assessment & Plan: HFrEF - Most recent EF 40% Entresto discontinued during [facility] hospitalization 10/11/23-10/12/23 due to nausea, diaphoresis, and [...] were pursued, would need to reapply for [facility]. 2. CAD -DALE x1 mLAD, has 50% [...] or time spent by another provider/QHP. Kristal Graham [facility] Clinical Pharmacist Medication Therapy Disease Management 12/23/2023,1:34 PM documented in this encounter Plan of Treatment Upcoming Encounters Date Type Department Care Team (Late st Contact Info) Description 01/06/2024 1:10 PM EDT Office Visit Cardiology, [place] [address] [place] [address] A[facility] Cardiology [address] [place] [address] 02/06/2024 2:15 PM EDT Office Visit Cardiology, [place] [address] [place] [address] Fabienne Pa, DO [address] [place] [address] 03/31/2024 1:30 PM EST Office Visit Cardiology, [place] [address] [place] [address] [place] [address] Tacos Talbot, DO [address] [place] [address] Scheduled Referrals Name Type Priority Associated Diagnoses [...] this encounter Medical Devices Implanted Type Area Mincing Machine Operator Device Identifier Shelf Expiration Date Model / Serial / Lot Stent Oren 3.0x12 Rx - [id number] Implanted:Qty: 1 on 06/05/2021 by Arvind Denney DO at [facility] [employer] : VASCULAR [id number] 11/14/2023 [id number] X / / [id number] documented as of this encounter Visit Diagnoses [...] the patient have Health Care Power of Medical Imaging Director? Yes, in chart and reviewed as current [...] Advance Directives occurred with: Patient Care Teams Organ Tuner Electronic Relationship Specialty Start Date End Date Tg Higgins MD [address] [facility] [place] [address] PCP - General Family Medicine 03/06/17 documented as of this encounter
--- OUTSIDE RECORDS SUMMARY | 2024-02-12 18:29 | External Medical Summary | Summary of Care ---
Author Name Unknown Organization [facility] Address [address] [place] [address] Phone [phone] Care Team Providers Care Hangersmith Name Role Phone Tg Higgins MD Primary [...] HFrEF (heart failure with reduced ejection fraction) ([facility]) Karla Lane CRNP [address] [place] [address] Referral ID Status Reason Start Date Expiration Date Visits Requested Visits Authorized [id number] Authorized Specialty Services Required 12/09/2023 06/06/2024 99 99 Encounter Details Date Type Department Care Team ([facility] Contact Info) Description 12/23/2023 1:30 PM EDT Office Visit [facility] [address] [place], [place] [phone] Aks[facility] Card[facility] [address] [place], [place] [phone] HFrEF (heart failure with reduced ejection fraction) ([facility])* Allergies Active Allergy Reactions Criticality Noted Date Comments Ceftriaxone Rash Medium 06/06/2021 documented as of this encounter (statuses as of 12/23/2023) Medications Medication Sig Dispensed Refills Start Date [...] as of this encounter (statuses as of 12/23/2023) Active Problems Problem Noted Date Diagnosed Date HFrEF (heart failure with reduced ejection fract ion) 10/11/2023 Paroxysmal atrial fibrillation 10/11/2023 Coronary artery disease invo lving [place] coronary artery of [place] heart without angina pectoris 10/11/2023 Acute systolic [...] as of this encounter (statuses as of 12/23/2023) Resolved Problems Problem Noted Date Diagnosed Date Resolved Date Near syncope 10/11/2023 10/12/2023 Left against medical advice 06/01/2021 06/02/2021 Atrial fibrillation with RVR 05/31/2021 06/04/2021 documented as of this encounter (statuses as of 12/23/2023) Immunizations Name Administration Dates Next Due COVID-19 mRNA, LNP-s, No Pre serve, 2-Dose Series (Analyze Re) 08/27/2020,08/05/2020 documented as of this encounter Social [...] in the morning documented in this encounter Plan of Treatment Upcoming Encounters Date Type Department Care Team (Late st Contact Info) Description 01/06/2024 1:10 PM EDT Office Visit CardiologyAdriannawn [address] [place] [address] [place] [address] A[facility]hat [facility] Cardiology [address] [place] [address] 02/06/2024 2:15 PM EDT Office Visit [facility] [address] [place] [address] Fabienne Pa, DO [address] [place] [address] 03/31/2024 1:30 PM EST Office Visit Akshat [facility] [address] [place] [address] Tacos Talbot, DO [address] [place] [address] Scheduled Referrals Name Type Priority Associated Diagnoses [...] 2) 05/12/2023 03/17/2023 COVID-19 Vaccine ( - 2022- season) 2023 03/17/2023, 03/12/2022, 03/16/2021, Additional history [...] this encounter Medical Devices Implanted Type Area Case Folder Device Identifier Shelf Expiration Date Model / Serial / Lot Stent Oren 3.0x12 Rx - [id number] Implanted:Qty: 1 on 06/05/2021 by Arvind Denney DO at [facility] [employer] : VASCULAR [id number] 11/14/2023 [id number] / / [id number] documented as of this encounter Visit Diagnoses [...] the patient have Health Care Power of Felled Seam Operator? Yes, in chart and reviewed as [...] Advance Directives occurred with: Patient Care Teams Hangersmith Relationship Specialty Start Date End Date Tg Higgins MD [address] [facility] [place] [address] PCP - General Family Medicine 03/06/17 documented as of this encounter
--- OUTSIDE RECORDS SUMMARY | 2024-02-12 18:29 | External Medical Summary | Summary of Care ---
Author Name Unknown Organization [facility] Address [address] [place] [address] Phone [phone] Care Team Providers Care Computer Operator Name Role Phone Tg Higgins MD Primary Care Provider + Reason for Visit * Reason Comments Outpatient Testing Encounter Details Date Type Department Care Team (Late st Contact Info) Description 12/20/2023 1:40 PM EDT Laboratory Laboratory, [facility] [address] [place] [phone] [facility], Lab [address] [place], [place] [phone] Persistent atrial fibrillation ([facility]); HFrEF (heart failure with reduced ejection fraction) ([facility]) Allergies Active Allergy Reactions Criticality Noted Date Comments Ceftriaxone Rash Medium 06/06/2021 documented as of this encounter (statuses as of 12/20/2023) Medications Medication Sig Dispensed Refills Start Date [...] as of this encounter (statuses as of 12/20/2023) Active Problems Problem Noted Date Diagnosed Date HFrEF (heart failure with reduced ejection fract ion) 10/11/2023 Paroxysmal atrial fibrillation 10/11/2023 Coronary artery disease invo lving [place] coronary artery of [place] heart without angina pectoris 10/11/2023 Acute systolic [...] as of this encounter (statuses as of 12/20/2023) Resolved Problems Problem Noted Date Diagnosed Date Resolved Date Near syncope 10/11/2023 10/12/2023 Left against medical advice 06/01/2021 06/02/2021 Atrial fibrillation with RVR 05/31/2021 06/04/2021 documented as of this encounter (statuses as of 12/20/2023) Immunizations Name Administration Dates Next Due COVID-19 mRNA, LNP-s, No Pre serve, 2-Dose Series ([employer]) 08/27/2020,08/05/2020 documented as of this encounter Social [...] 12/23/2023 1:30 PM EDT Office Visit CardiologyAkshat [address] [place] [address] [place] [address] [address] [facility] Cardiology [address] [facility] [place], [place] [address] 02/06/2024 2:15 PM EDT Office Visit Cardiology, [place] [address] [place], [place] [address] Fabienne Pa, DO [address] [facility] [place] [address] 03/31/2024 1:30 PM EST Office Visit Cardiology, [place] [address] [facility] [place] [address] Tacos Talbot, DO [address] [facility] [place] [address] Pending Results Name Type Priority Associated Diagnoses Date /Time BASIC METABOLIC PANEL Lab Routine Persistent atrial fibrillation (HCC) HFrEF (heart failure with reduced ejection fraction) (HCC) 12/20/2023 1:39 PM EDT Health Maintenance Due Date Last Done Comments Depression Screening 1961 Hepatitis C Screening 1967 DTaP,Tdap,and Td Vaccines (1 - Tdap) 1968 Colonoscopy 1994 Fecal Occult Blood Test 1994 Sigmoidoscopy 1994 HbA1c 06/03/2022 06/03/2021, 05/13, 01/10/2021, Additional history exists Zoster Vaccines (2 of 2) 05/12/2023 03/17/2023 COVID-19 Vaccine ( - 2022-24 season) 2023 03/17/2023, 03/12/2022, 03/16/2021, Additional history [...] this encounter Medical Devices Implanted Type Area Rolling Machine Tender Device Identifier Shelf Expiration Date Model / Serial / Lot Stent Geraldine 3.0x12 Rx - [id number] Implanted:Qty: 1 on 06/05/2021 by Arvind Denney DO at [facility] [employer] : VASCULAR [id number] 11/14/2023 [id number] / / [id number] documented as of this encounter Visit Diagnoses [...] the patient have Health Care Power of Doll Surgeon? Yes, in chart and reviewed as current [...] Advance Directives occurred with: Patient Care Teams Computer Operator Relationship Specialty Start Date End Date Tg Higgins MD [address] [facility] [place] [address] PCP - General Family Medicine 03/06/17 documented as of this encounter
--- OUTSIDE RECORDS SUMMARY | 2024-02-12 18:29 | External Medical Summary ---
Author Name Unknown Address Unknown Organization [id number]:[facility] - [address] [place] [address] Laboratory Report Ordering Provider Test Date Status CARLOS WOLFF 01/20/2024 14:02:43 Final Observation Date Value Abnormality Reference (Units ) Status BUN 01/20/2024 14:02:43 11 6-20 (mg/dL) Final Creatinine 01/20/2024 14:02:43 1.0 0.6-1.2 (mg/dL) Final Glomerular filtration rate/1.73 sq M.predicted [Volume Rate/Area] in Serum, Plasma or Blood by Creatinine-based formula (CKD-EPI) 01/20/2024 14:02:43 79 >=60 (mL/min) Final eGFR is calculated based on the CKD-EPI 2020 equation. Sodium 01/20/2024 14:02:43 139 135-146 (m mol/L) Final Potassium 01/20/2024 14:02:43 4.5 3.5-5.1 (m mol/L) Final Cl 01/20/2024 14:02:43 106 98-107 (mm ol/L) Final CO2 01/20/2024 14:02:43 24 22-32 (mmo l/L) Final Anion gap 01/20/2024 14:02:43 9 7-15 (mmol /L) Final Glucose 01/20/2024 14:02:43 90 70-120 (mg /dL) Final Calcium 01/20/2024 14:02:43 9.5 8.4-10.2 ( mg/dL) Final Performing Location [facility] - [address] [place] [address]
--- OUTSIDE RECORDS SUMMARY | 2024-02-12 18:29 | External Medical Summary | Summary of Care ---
Author Name Unknown Organization [facility] Address [address] [place] [address] Phone [phone] Care Team Providers Care Equipment Tester Name Role Phone Tg Higgins MD Primary Care Provider + Reason for Referral * Evaluate & Treat - Unlimited Visits (Within 10 days (routine)) - Authorized Specialty Diagnoses / Procedures Referred By Contact Referred To Contact Cardiac Electrophysiology / Cardiology Diagnoses Persistent atrial fibrillation (HCC) Karla Lane CRNP [address] [place] [address] Referral ID Status Reason Start Date Expiration Date Visits Requested Visits Authorized [id number] Authorized Specialty Services Required 12/09/2023 999 999 Question Answer Referral Priority Within 10 days (routine) Where should this appointment be scheduled? [facility] * Precert (Within 10 days (routine)) - Authorized Specialty Diagnoses / Procedures Referred By Contac t Referred To Contact Cardiac Studies Diagnoses Persistent atrial fibrillation (HCC) HFrEF (heart failure with reduced ejection fraction) (HCC) Procedures ECHO, COMPLETE (2D), TRANS-THORACIC Karla Lane CRNP [address] [place] [address] Referral ID Status Reason Start Date Expiration Date V isits Requested Visits Authorized [id number] Authorized Precert 12/09/2023 999 999 * Evaluate & Treat - Unlimited Visits (Within 3 days (urgent)) - Authorized Specialty Diagnoses / Procedures Referred By Hakeem t Referred To Contact Pharmacist / Pharmacy Diagnoses Persistent atrial fibrillation (HCC) HFrEF (heart failure with reduced ejection fraction) (HCC) Karla Lane CRNP [address] [place] [address] Referral ID Status Reason Start Date Expiration Date Visits Requested Visits Authorized [id number] Authorized Specialty Services Required 12/09/2023 06/06/2024 99 99 Question Answer Referring Provider Role: Primary Care Reason for Referral: HF Referral Priority Within 3 days (urgent) Where should this appointment be scheduled? [facility] Comments Pharmacist Medication Therapy Management: Minimum frequency patient should be seen in person for medication management: as appropriate per clinical condition and patient status By my signature, I understand that my patient Richard Holt will have his medication therapy managed by the [facility] ([facility]) per established policies, procedures, and protocols. I also certify that this referral may serve as an initiation of service for the management of drug therapy in the above noted patient. [facility] providers will be responsible for scheduling patient visits, obtaining appropriate laboratory studies, and adjusting medication management therapy per patient's need, in addition to those roles spelled out in the clinic policy, procedures, and drug management protocols. I understand that the service provided by the [facility] Clinic is voluntary and have informed patient that they can refuse the service at their discretion. I am aware that the [facility] Clinic will provide me with a copy of the patient encounter via my [employer]. I authorize the [facility] to carry out these activities on my behalf. I consider this program to be a necessary part of the patient's medical care. AURORA Jean-Baptiste Reason for Visit * Reason Comments Follow Up One month visit afte r cardioversion Encounter Details Date Type Department Care Team (Late st Contact Info) Description 12/09/2023 3:30 PM EDT Office Visit Cardiology, [place] [address] [place] [address] CRNP [address] [place] [address] Persistent atrial fibrillation (HCC)*; HFrEF (heart failure with reduced ejection fraction) ([facility]) Allergies Active Allergy Reactions Criticality Noted Date Comments Ceftriaxone Rash Medium 06/06/2021 documented as of this encounter (statuses as of 12/09/2023) Medications Medication Sig Dispensed Refills Start Date [...] the morning. 90 Tablet 3 12/09/2023 Active Amiodarone HCl 200 MG Oral Tablet (Cordarone) Take 1 Tablet by mouth in the morning. 34 Tablet 11 10/29/2023 12/09/2023 Discontinued (Medication/ Dose Changed) documented as of this encounter (statuses as of 12/09/2023) Active Problems Problem Noted Date Diagnosed Date HFrEF (heart failure with reduced ejection fract ion) 10/11/2023 Paroxysmal atrial fibrillation 10/11/2023 Coronary artery disease invo lving [place] coronary artery of [place] heart without angina pectoris 10/11/2023 Acute systolic [...] as of this encounter (statuses as of 12/09/2023) Resolved Problems Problem Noted Date Diagnosed Date Resolved Date Near syncope 10/11/2023 10/12/2023 Left against medical advice 06/01/2021 06/02/2021 Atrial fibrillation with RVR 05/31/2021 06/04/2021 documented as of this encounter (statuses as of 12/09/2023) Immunizations Name Administration Dates Next Due COVID-19 mRNA, LNP-s, No Pre serve, 2-Dose Series ([employer]) 08/27/2020,08/05/2020 documented as of this encounter Social History Tobacco Use Types Packs/Day Years Used Date Smoking Tobacco: Never Smokeless Tobacco: Never Tobacco Cessation:Counseling Given: Not Answered Alcohol Use Standard Drinks/Week Comments No 0 [...] Sign Reading Time Taken Comments Blood Pressure 111/63 12/09/2023 2:35 PM EDT Pulse 47 12/09/2023 2:35 PM EDT Temperature - - Respiratory Rate 16 12/09/2023 2:35 PM EDT Oxygen Saturation 99% 12/09/2023 2:35 PM EDT Inhaled Oxygen Concentration - - Weight 100 kg (220 lb 8 oz) 12/09/2023 2:35 PM E DT Height - - Body Mass Index 29.91 10/29/2023 9:25 AM EDT documented in this [...] this encounter Patient Instructions * Patient Instructions* Karla Lane CRNP - 12/09/2023 2:58 PM EDT Start Losartan 25 mg daily. Blood work in 2 weeks. documented in this encounter Progress Notes * Karla Lane CRNP - 12/09/2023 3:30 PM EDT 12/09/2023 Cardiology Follow Up Primary Band Instrument Repairer: Dr. Talbot Cardiac Problems: 1. CAD -DALE x1 mLAD, has 50% RCA stenosis 06/05/21 2. Hx Ischemic/Nonischemic CMP -EF 30% 09/16/2023 -EF 50% 02/2022 -EF 40% 09/15/2021 -EF 25-29% 06/05/2021 3. HFrEF 4.Moderate-Severe Aortic Stenosis 5.Moderate Aortic Regurgitation 6.Persistent AFIB -GREGOR/DCCV 10/29/23 -DCCV 06/06/2021 -CHADVASC 2 (age, CHF) . 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 Returned to [facility] on 05/31/21 with reports of increase shortness of breath, orthopnea, and productive cough for the past few weeks. He was found to be in atrial fibrillation rapidventricular response. He was admitted and a transthoracic echocardiogram showed LVEF of 30-34%. He had signed out AMA but came back to the hospital and was eventually transferred to [facility]. There he underwent a heart catheterization with a drug-eluting stent placed to the mid LAD. Initialtransthoracic echocardiogram showed LVEF 30 34%, moderate to severe mitral regurgitation, and concern for possible low-flow low gradient aortic stenosis. Patient was following [facility] pharmacy to optimize GDMT. Repeat echocardiogram on demonstrated an improvement in EF 50% Evaluated in the office on 07/16/23 with the undersigned. At that time he was instructed to have an echocardiogram to assess the size of his aortic root/ascending aorta. Echocardiogram demonstrated reduced EF 30%, suspected low- flow severe aortic stenosis, moderate aortic regurgitation, and moderately enlarged ascending thoracic aorta 4.8 cm. Patient was sent to valve clinic for further evaluation.Recommended to have a GREGOR/DCCV with possible addition of Amiodarone then DSE to to assess severity of aortic stenosis. Patient admitted to [facility] 10/11/23-10/12/23. He was scheduled for an outpatient GREGOR/DCCV when he had significant nausea and became diaphoretic An CNC SPECIALIST was called and patient was noted to be hypotensive with systolic blood pressure of 70. Patient generally felt unwell. Entresto discontinued. Underwent GREGOR/DCCV on 10/29/2023. Started on Amiodarone at that time. Here today for Cardiology follow up. Home BP/HR log reviewed. BP well controlled. Heart rates were between 50-70 bpm, but that was probably within the first 2 weeks of starting Amiodarone. Endorses shortness of breath that is a little bit better. Not getting light. Denies lightheadedness/dizziness, falls, and syncope. No weakness/fatigue. REVIEW OF SYSTEMS: See HPI for pertinent positives. All others negative other than those noted in the HPI. CONSTITUTIONAL: No change in weight, No weakness, No fatigue and No fevers, No sweats or chills. PULMONARY: No cough, sputum, or hemoptysis, No wheezing, No shortness or breath and No recent change in breathing. CARDIOVASCULAR: No chest pain, + dyspnea on exertion, No edema, No palpitations and No syncope. GASTROINTESTINAL: No abdominal pain, No change in bowel habits, No significant heartburn, No nausea, No vomiting, No diarrhea, No constipation, No blood in stools or black tarry stools. No dysphagia. HEMATOLOGIC: No abnormal bleeding and No bruising. NEUROLOGICAL: Normal balance, No headaches and No weakness. Review of patient's allergies indicates: Allergen Reactions Ceftriaxone Rash Current Outpatient Medications Medication Sig Dispense Refill [...] HTN (hypertension) Ischemic cardiomyopathy Paroxysmal A-fib (HCC) Family History Problem Relation Name Age of Onset Heart disease Mother Other (old age) Father Social History Socioeconomic History Marital status: Single Tobacco Use Smoking status: Never Smokeless tobacco: Never Vaping Use Vaping status: Never Used Substance and Sexual Activity Alcohol use: No Drug use: No Social Determinants of Health Social Connections OBJECTIVE/PHYSICAL EXAMINATION: BP 111/63 | Pulse 47 | Resp 16 | Wt 100 kg (220 lb 8 oz) | SpO2 99% | BMI 29.91 kg/m | BSA 2.25 m General: No acute distress. A+Ox3. HEENT: Normocephalic. Atraumatic. PERRL. EOMI. Conjunctiva and sclera clear. NECK: No carotid bruits. No JVD. Carotid upstrokes are brisk. Heart: Irregularly irregulra. S1 and S2 noted. +2/6 systolic murmur. No rubs or gallops. PMI non displaced. Lungs: Clear to auscultation. No wheezes.No rhonchi. No rales. Abdomen: Normal bowel sounds. Soft. Nontender. No masses or organomegaly. No abdominal bruits. Extremities: No edema. No clubbing or cyanosis. Pulses: radial=2/4, posterior tibial=2/4, dorsalis pedis = 2/4. NEURO: No focal deficits. PSYCH: Appropriate affect and insight. DATA Labs & Imaging Reviewed Below: GREGOR 10/29/2023 The qualitative LV ejection fraction is 35-39% [...] Energy 200 Joules, resulting rhythm: Sinus bradycardia Echo 09/16/2023 Qualitative LV ejection Fraction = 30%. The left ventricular cavity size is moderately enlarged. Moderate aortic valve stenosis is present. Severity of aortic valve stenosis is underestimated low-flow low gradient aortic valve stenosis. Moderate aortic valve regurgitation is present. The proximal ascending thoracic aorta is moderately enlarged (4.8 cm). There was atrial fibrillation during the examination. Echocardiogram 03/06/2022 Calculated LV ejection Fraction = 50% (three dimensional volumes). The left ventricular cavity sizeis moderately enlarged. The LV wall thickness is normal. There is no left ventricular mural thrombus. RCA and/or Lcx regional wallmotion abnormality. The left ventricular diastolic function is mildly abnormal (grade I). The left atrium is mildly enlarged. Mild aortic valve stenosis. Mild aortic valve regurgitation. The proximal ascending thoracic aorta is moderately enlarged (4.8 cm). Echocardiogram 09/15/2021 Qualitative LV ejection Fraction = 40%. The [...] study dated 06/01/2021, LV systolic function improved. EKG 06/06/2021 SB 59 bpm QTC 437 GREGOR 06/05/2021 There is no left atrial or left [...] ascending aorta (47 mm) are moderately enlarged. Cardiac Catheterization 06/05/2021 Severe single vessel CAD with culprit mid LAD 80% stenosis. * There was a focal 80% stenosis of midLAD s/p successful PCI with a 3.0 x 12 mm Resolute [place], deployed at [address]. Post dilated with a 3.0 x 6 mm NC balloon. Post intervention has 0% stenosis with AMY 3 flow. * There was a 50% stenosis of mid RCA. ASSESSMENT/PLAN: 73 year old year old male 1. Chronic coronary artery disease 2. Ischemic cardiomyopathy -Hx ischemic cardiomyopathy. EF 25-29%. Underwent DALE x1 mid LAD 05/2021. Repeat echocardiogram on 03/06/22 shows EF improved to 50%. -Continue aspirin 81 mg daily. 3. HFrEF (heart failure with reduced ejection fraction) ([facility]) 4. Nonrheumatic aortic valve stenosis 5. Moderate aortic regurgitation -Reported he was not taking his medication correctly (once daily instead of twice). Coincidentally found to have a new depressed EF 30% with moderate aortic regurgitation and moderate aortic stenosis. Severity of aortic stenosis is underestimated. He will need a Dobutamine Stress Echo to assess theseverity of the valve after his GREGOR/DCCV. However there is concern this could put him back in AFIB RVR. Will obtain an echocardiogram tomorrow now that he is back in NSR. -Euvolemic on exam. Asymptomatic. -Continue Metoprolol Succinate 12.5 mg daily -No longer on Entresto due to hypotension -[facility] pharmacy referral placed. 6. Persistent atrial fibrillation (HCC) -s/p GREGOR/DCCV 10/28. EF 35-39% with moderate AI and moderate . -EKG completed today: Junctional Rhythm 40 bpm. Case discussed with Dr. Talbot. Will refer to EP. -Stop Amiodarone. -Continue Eliquis 5 mg BID 7. Dyslipidemia, goal LDL below 70 -Most recent LDL 111. This was not completed fasting. Will need to repeat. -Discontinued Lipitor on his own. Currently taking Crestor 5 mg daily 8. Aortic root enlargement (HCC) 9. Ascending aorta enlargement (HCC) -Aortic root 4.4 cm -Proximal ascending thoracic aorta is moderately enlarged (4.8 cm). -Consider CTA Chest to reassess the size of his aorta. DISPOSITION: Follow up in 4 weeks or if symptoms worsen/fail to improve. All questions were answered to the patients satisfaction. Patient advised to report to ED with any and all emergencies. The patient agrees to the above plan and will call with additional questions or concerns. AURORA Jean-Baptiste [facility] [place] [facility] [address] [place] [place] [address] I spent a total of 40 minutes on the date of service in preparation, delivery, and documentation ofthe care provided to Richard Holt excluding any time spent in the performance of separately billed services. This chart was completed in part utilizing [employer] Speech Voice Recognition Software. Grammatical errors, random word insertions, pronoun errors, and incomplete sentences are an occasional consequence of this system due to software limitations, ambient noise, and hardware issues. Any formal questions or concerns about the content, text, or information contained within the body of this dictation should be directly addressed to the provider for clarification. documented in this encounter Nursing Notes * Cece Ruiz LPN - 12/09/2023 2:32 PM EDT Patient was identified by name and date of . Name: Rcihard Holt Date of : (1950). Examination Room: 3 Reason for Visit: Chief Complaint Patient presents with Follow Up One month visit after cardioversion Interim Hospitalization(s): no Interim Emergency room visit(s): NO Chest Pain: No SOB: Yes stairs Problems/Concerns: Yes pharmacist told pt that the amiodarone could build up in his system. Medications reviewed and are up to date via: Patient's memory Would you like to sign up for [facility]? NO Patient was instructed to not get up on the exam table/exam chair until directed and assisted by their provider; patient is to remain seated in the chair/ wheelchair/ exam table/ exam chair for fall prevention and safety reasons. Patient is aware to have assistance to step down off exam table/exam chair with personnel. Patient voiced full comprehension of instructions. Cece Ruiz LPN 2:33 PM 12/09/2023 documented in this encounter Plan of Treatment Upcoming Encounters Date Type Department Care Team (Late st Contact Info) Description 12/10/2023 12:45 PM EDT Appointment Cardiac Studies, [facility] [address] [facility], [place] [address] 12/23/2023 1:30 PM EDT Office Visit Cardiology, [address], [place] [address] [facility] Cardiology [address] [facility], [place] [address] 02/06/2024 2:15 PM EDT Office Visit Cardiology, [address], [place] [address] [place], [address] [facility] [address] 03/31/2024 1:30 PM EST Office Visit Cardiology, [address], [place] [address] [place] Talbot, [address] [facility], [place] [address] Scheduled Orders Name Type Priority Associated Diagnoses Orde r Schedule EKG EKG Routine Persistent atrial fibrillation (HCC) HFrEF (heart failure with reduced ejection fraction) (HCC) Expected: 12/09/2023 (Approximate), Expires: 06/10/2024 ECHO, COMPLETE (2D), TRANS-THORACIC Echocardiology Routine Persistent atrial fibrillation (HCC) HFrEF (heart failure with reduced ejection fraction) (HCC) Expected: 12/09/2023 (Approximate), Expires: 01/08/2026 BASIC METABOLIC PANEL Lab Routine Persistent atrial fibrillation (HCC) HFrEF (heart failure with reduced ejection fraction) (HCC) Expected: 12/09/2023, Expires: 12/08/2024 BASIC METABOLIC PANEL Lab Routine Persistent atrial fibrillation (HCC) HFrEF (heart failure with reduced ejection fraction) (HCC) Expected: 12/16/2023, Expires: 12/08/2024 Scheduled Referrals Name Type Priority Associated Diagnoses Orde r Schedule PHARMACIST MEDS THERAPY MGMT REFERRAL OP Referral Within 3 days (urgent) Persistent atrial fibrillation (HCC) HFrEF (heart failure with reduced ejection fraction) (HCC) Ordered: 12/09/2023 ELECTROPHYSIOLOGY REFERRAL OP Referral Within 10 days (routine) Persistent atrial fibrillation (HCC) Ordered: 12/09/2023 Health Maintenance Due Date [...] this encounter Medical Devices Implanted Type Area Tree Worker Device Identifier Shelf Expiration Date Model / Serial / Lot Stent Oren 3.0x12 Rx - [id number] Implanted:Qty: 1 on 06/05/2021 by Arvind Denney DO at [facility] [employer] : VASCULAR [id number] 11/14/2023 [id number] / / [id number] documented as of this encounter Visit Diagnoses Diagnosis Persistent atrial fibrillation (HCC)- Primary Atrial fibrillation HFrEF (heart failure with reduced [...] the patient have Health Care Power of Greeting Card Editor? Yes, in chart and reviewed as current [...] Advance Directives occurred with: Patient Care Teams Equipment Tester Relationship Specialty Start Date End Date Tg Higgins MD [address] [facility] [place] [address] PCP - General Family Medicine 03/06/17 documented as of this encounter"
--- OUTSIDE RECORDS SUMMARY | 2024-02-12 18:29 | External Medical Summary | Summary of Care ---
Author Name Unknown Organization [facility] Address [address] [place] [address] Phone [phone] Care Team Providers Care Box Blank Machine Operator Helper Name Role Phone Tg Higgins MD Primary Care Provider + Reason for Visit * Reason Onset Date Comments Test Results 12/13/2023 Encounter Details Date Type Department Care Team ([facility] st Contact Info) Description [facility] [address] [place] [address] CRNP [address] [place] [address] Test Results (/) Allergies Active Allergy Reactions Criticality Noted Date Comments Ceftriaxone Rash Medium 06/06/2021 documented as of this encounter (statuses as of 12/13/2023) Medications Medication Sig Dispensed Refills Start Date [...] as of this encounter (statuses as of 12/13/2023) Active Problems Problem Noted Date Diagnosed Date HFrEF (heart failure with reduced ejection fract ion) 10/11/2023 Paroxysmal atrial fibrillation 10/11/2023 Coronary artery disease invo lving [place] coronary artery of [place] heart without angina pectoris 10/11/2023 Acute systolic [...] as of this encounter (statuses as of 12/13/2023) Resolved Problems Problem Noted Date Diagnosed Date Resolved Date Near syncope 10/11/2023 10/12/2023 Left against medical advice 06/01/2021 06/02/2021 Atrial fibrillation with RVR 05/31/2021 06/04/2021 documented as of this encounter (statuses as of 12/13/2023) Immunizations Name Administration Dates Next Due COVID-19 mRNA, LNP-s, No Pre serve, 2-Dose Series ([employer]) 08/27/2020,08/05/2020 documented as of this encounter Social [...] Telephone Encounter - Dolly Figueroa LPN - 12/13/2023 9:46 AM EDT Pt notified via phone and states understanding. * Telephone Encounter - Dolly Figueroa LPN - 12/13/2023 9:44 AM EDT ----- Message from Karla Lane sent at 12/13/2023 9:41 AM EDT ----- EF has improved from 35-39% to 40-44%. Moderate AI Moderate-Severe . Keep appt with EP in Jan. Keep appt with Dr. Talbot in March. No changes to be made right now documented in this encounter Plan of Treatment Upcoming Encounters Date Type Department Care Team (Late st Contact Info) Description 12/23/2023 1:30 PM EDT Office Visit Cardiology, [place] [address] [place] [address] [facility] Cardiology [address] [place] [address] 02/06/2024 2:15 PM EDT Office Visit Cardiology, [place] [address] [place] [address] [place], [address] [place] [address] 03/31/2024 1:30 PM EST Office Visit [facility] [address] [place] [address] [place] Talbot, DO [address] [place] [address] Health Maintenance Due Date Last Done Comments [...] this encounter Medical Devices Implanted Type Area Quality Control Manager Device Identifier Shelf Expiration Date Model / Serial / Lot Stent Oren 3.0x12 Rx - [id number] Implanted:Qty: 1 on 06/05/2021 by Arvind Denney DO at [facility] [place] [place] [employer] : VASCULAR [id number] 11/14/2023 [id number] X / / [id number] documented as of this encounter Advance Directives [...] the patient have Health Care Power of Registration Clerk? Yes, in chart and reviewed as current [...] Advance Directives occurred with: Patient Care Teams Box Blank Machine Operator Helper Relationship Specialty Start Date End Date Tg Higgins MD [address] [facility] [place] [address] PCP - General Family Medicine 03/06/17 documented as of this encounter
--- OUTSIDE RECORDS SUMMARY | 2024-02-12 18:29 | External Medical Summary | Summary of Care ---
Author Name Unknown Organization [facility] Address [address] [place] [address] Phone [phone] Care Team Providers Care Fiberglass Model Maker Name Role Phone Tg Higgins MD Primary Care Provider + Reason for Visit * Reason Comments Outpatient Testing Encounter Details Date Type Department Care Team (Late st Contact Info) Description 12/20/2023 1:40 PM EDT Laboratory Laboratory, [facility] [address] [place] [id number] [facility], Lab [address] [place], [place] [id number] Persistent atrial fibrillation (FORMER[facility]); HFrEF (heart failure with reduced ejection fraction) (FORMERLY [facility]) Allergies Active Allergy Reactions Criticality Noted Date [...] fibrillation 10/11/2023 Coronary artery disease invo lving [place] coronary artery of [place] heart without angina pectoris 10/11/2023 Acute systolic [...] mRNA, LNP-s, No Pre serve, 2-Dose Series ([employer]) 08/27/2020,08/05/2020 documented as of this encounter Social [...] as of this encounter Miscellaneous Notes * Result Encounter Note - Michelle Ramirez LPN - 12/23/2023 12:29 PM EDT Pt advised * Result Encounter Note - Karla Lane CRNP - 12/23/2023 11:42 AM EDT Kidney function and electrolytes are normal. documented in this encounter Plan of Treatment Upcoming Encounters Date Type Department Care Team (Late st Contact Info) Description 12/23/2023 1:30 PM EDT Office Visit Cardiology, [place] [address] [place] [address] [place] [facility] [address] [place] [address] 02/06/2024 2:15 PM EDT Office Visit Cardiology, [place] [address] [place] [address] Fabienne Pa, DO [address] [place] [address] 03/31/2024 1:30 PM EST Office Visit Cardiology, [place] [address] [place] [address] Tacos Talbot, DO [address] [place] [address] Health Maintenance Due Date Last Done Comments Depression Screening 1961 Hepatitis C Screening 1967 DTaP,Tdap,and Td Vaccines (1 - Tdap) 1968 Colonoscopy 1994 Fecal Occult Blood Test 1994 Sigmoidoscopy 1994 HbA1c 06/03/2022 06/03/2021, 05/13, 01/10/2021, Additional history exists Zoster Vaccines (2 of 2) 05/12/2023 03/17/2023 COVID-19 Vaccine (24 season) 2023 03/17/2023, 03/12/2022, 03/16/2021, Additional history [...] this encounter Medical Devices Implanted Type Area Laboratory Coordinator Device Identifier Shelf Expiration Date Model / Serial / Lot Stent Oren 3.0x12 Rx - [id number] Implanted:Qty: 1 on 06/05/2021 [place] Arvind Denney [place] [facility] [place] [employer] [place] [id number] 11/14/2023 [id number] / / [id number] documented as of this encounter Procedures Procedure Name Priority Date/Time Associated Diagnosis Comments BASIC METABOLIC PANEL Routine 12/20/2023 1:39 PM EDT Persistent atrial fibrillation (HCC) HFrEF (heart failure with reduced ejection fraction) (HCC) documented in this encounter Results * BASIC METABOLIC PANEL (12/20/2023 1:39 PM EDT) BUN 17 6 - 20 mg/dL 12/21/2023 12:09 AM EDT LABORATORY C Creatinine 1.0 0.6 - 1.2 mg/dL 12/21/2023 12:09 AM EDT LABORATORY C Estimated Glomerular Filtration Rate 76 >=60 mL/min 12/21/2023 12:09 AM EDT LABORATORY C Comment:eGFR is calculated b ased on the CKD-EPI 2020 equation. Sodium 138 135 - 146 mmol/L 12/21/2023 12:09 AM EDT LABORATORY [facility] Potassium 4.5 3.5 - 5.1 mmol/L 12/21/2023 12:09 AM EDT LABORATORY [facility] Chloride 106 98 - 107 mmol/L 12/21/2023 12:09 AM EDT LABORATORY C CO2 24 22 - 32 mmol/L 12/21/2023 12:09 AM EDT LABORATORY C Anion Gap 8 7 - 15 mmol/L 12/21/2023 12:09 AM EDT LAB[facility]AT[facility] [place] Glucose 87 70 - 120 mg/dL 12/21/2023 12:09 AM EDT LAB[facility]AT[facility] Calcium 9.2 8.4 - 10.2 mg/dL 12/21/2023 12:09 AM EDT [facility]AT[facility] [place] Blood Venous blood specimen / Unknown Venipuncture / Unknown 12/20/2023 1:39 PM EDT 12/20/2023 1:39 PM EDT Karla SIMON LAB BLOOD ORDERABLES LABORATORY C [address] [place] [address] documented in this encounter Visit Diagnoses Diagnosis Persistent atrial [...] the patient have Health Care Power of Youth Career Specialist? Yes, in chart and reviewed as current [...] Advance Directives occurred with: Patient Care Teams Fiberglass Model Maker Relationship Specialty Start Date End Date Tg Higgins MD [address] [facility] [place] [address] PCP - General Family Medicine 03/06/17 documented as of this encounter
--- OUTSIDE RECORDS SUMMARY | 2024-02-12 18:29 | External Medical Summary | Summary of Care ---
Author Name Unknown Organization [facility] Address [address] [place] [address] Phone [phone] Care Team Providers Care Currency Exchange Specialist Name Role Phone Tg Higgins MD Primary Care Provider + Reason for Visit * Reason Comments Dosage Adjustment In Person (Anticoag Cl inic) Congestive Heart Failure Encounter Details Date Type Department Care Team ([facility] st Contact Info) Description 01/06/2024 1:10 PM EDT Office Visit Cardiology, [place] [address] [place] [address] [facility] Cardiology [address] [place] [address] Ischemic cardiomyopathy* Allergies Active Allergy Reactions Criticality [...] fibrillation 10/11/2023 Coronary artery disease invo lving [place] coronary artery of [place] heart without angina pectoris 10/11/2023 Acute systolic [...] mRNA, LNP-s, No Pre serve, 2-Dose Series ([employer]) 08/27/2020,08/05/2020 documented as of this encounter Social [...] to next appt documented in this encounter Progress Notes * Mariella Graham RPh - 01/06/2024 12:17 PM EDT PHARMACY CHRONIC DISEASE MANAGEMENT - HEART FAILURE Richard Holt is an 73 year old patient referred to the Heart Failure MTM clinic by AURORA Jean-Baptiste for the following: [...] vitals: Does patient monitor BP at home? No, gets checked at [facility] [facility] every few weeks Any dizziness or lightheadedness: Less than beforehand, does not recall having it since in last visit; sometimes when standing up, but not often Home BP log results: N/A Does patient monitor HR at home? no Home HR log results: N/A Does patient monitor weight at home? yes Any increased edema or shortness of breath: Some SOB when moving a lot, denies edema. Home weight log results: 220 lb, stable Objective: BP Readings from Last 3 Encounters: 01/06/24 116/63 12/23/23 98/58 12/09/23 111/63 Pulse Readings from Last 3 Encounters: 01/06/24 44 12/09/23 47 10/29/23 75 Wt Readings from Last 3 Encounters: 12/09/23 [...] mg twice daily Aspirin 81 mg daily Group[facility] MOMO Card ID:[id number] Group: [id number] BIN: [id number] PCN: [id number] 06/10/2023-06/09/2024 Eligible for [facility] Order pharmacy? Agree or Declined? Denies Assessment & Plan: HFrEF -Most recent EF 40% -Start Jardiance 10 mg daily -BMP 2 weeks Patient previously with symptomatic hypotension, now improved since altering timing of losartan andmetoprolol last visit. Does not recall any dizziness/lightheadedness since last visit, except for afew times when standing up quickly. SBP 116 today (98 last visit). Discussed addition of Jardiance and patient is agreeable. Has active [employer], as above. Instructed patient to start Jardiance 10 mg daily. Patient to monitor for signs of low blood pressure such as dizziness and lightheadedness. Instructed patient to monitor for signs of yeast and urinary tract infections. Patient was instructed to stay hydrated while taking this medication. Of note, Entresto discontinued in past during [facility] hospitalization 10/11/23-10/12/23 due to nausea, diaphoresis, and hypotension with SBP in 70s. During this visit, patient had afib with RVR. 2. CAD -DALE x1 mLAD, has 50% RCA stenosis 06/05/21 3. Moderate-Severe Aortic Stenosis 4. Moderate Aortic Regurgitation 5. Persistent AFIB -GREGOR/DCCV 10/29/23 -DCCV 06/06/2021 -CHADVASC 2 (age, CHF) -Eliquis Medication Changes: Losartan 25 mg daily Metoprolol ER 12.5 mg daily START Jardiance 10 mg daily Crestor 5 mg daily Eliquis 5 mg twice daily Aspirin 81 mg daily Labs Due: BMP 2 weeks Vaccines Due: Not reviewed Follow up: 2 weeks I spent a total of 20-29 minutes (exact time 20 mins) on the date of service in preparation, delivery, and documentation of the care provided to Richard Holt excluding any time spent in the performance of separately billed services or time spent by another provider/QHP. Mariella Graham [facility] Clinical Pharmacist Medication Therapy Disease Management 12/23/2023,1:34 PM documented in this encounter Miscellaneous Notes * Addendum Note - Mariella Graham RPh - 01/06/2024 2:31 PM EDTAddended by: MARIELLA GRAHAM on: 01/06/2024 02:31 PM Modules accepted: Orders documented in this encounter Plan of Treatment Upcoming Encounters Date Type Department Care Team (Late st Contact Info) Description 01/22/2024 1:00 PM EDT [place] [address] [place] [address] [place] [facility] [address] [facility] [address] 02/06/2024 2:15 PM EDT Office Visit [facility] [address] [place] [address] Fabienne Pa, [address] [facility] [address] 03/31/2024 1:30 PM EST Office Visit [facility] [address] [place] [address] Tacos Talbot, DO [address] [place] [address] Scheduled Orders Name Type Priority Associated Diagnoses [...] (2 of 2) 05/12/2023 03/17/2023 COVID-19 Vaccine (6 - season) 2023 03/17/2023, 03/12/2022, 03/16/2021, Additional [...] this encounter Medical Devices Implanted Type Area Ticker Maintainer Device Identifier Shelf Expiration Date Model / Serial / Lot Stent Oren 3.0x12 Rx - [id number] Implanted:Qty: 1 on 06/05/2021 [place] Arvind Den[place] [facility] [facility] [facility] [place] [employer] [place] [id number] 11/14/2023 [id number] / / [id number] documented as of this encounter Visit Diagnoses [...] the patient have Health Care Power of Black Studies Professor? Yes, in chart and reviewed as current [...] Advance Directives occurred with: Patient Care Teams Currency Exchange Specialist Relationship Specialty Start Date End Date Tg Higgins MD [address] [facility] [place] [address] PCP - General Family Medicine 03/06/17 documented as of this encounter
--- OUTSIDE RECORDS SUMMARY | 2024-02-12 18:30 | External Medical Summary | Summary of Care ---
Author Name Unknown Organization [facility] Address [address] [place] [address] Phone [phone] Care Team Providers Care Shoe Planner Name Role Phone Tg Higgins MD Primary Care Provider + Reason for Visit * Reason Onset Date Comments Procedure 10/22/2023 Encounter Details Date Type Department Care Team ([facility] st Contact Info) Description [facility] [address] [place] [address] Karla Laen CRNP [address] [place] [address] Procedure Allergies Active Allergy Reactions Criticality Noted Date Comments Ceftriaxone Rash Medium 06/06/2021 documented as of this encounter (statuses as of 10/25/2023) Medications Medication Sig Dispensed Refills Start Date [...] by mouth in the morning. 08/12/2023 Active documented as of this encounter (statuses as of 10/25/2023) Active Problems Problem Noted Date Diagnosed Date HFrEF (heart failure with reduced ejection fract ion) 10/11/2023 Paroxysmal atrial fibrillation 10/11/2023 Coronary artery disease invo lving [place] coronary artery of [place] heart without angina pectoris 10/11/2023 Acute systolic [...] as of this encounter (statuses as of 10/25/2023) Resolved Problems Problem Noted Date Diagnosed Date Resolved Date Near syncope 10/11/2023 10/12/2023 Left against medical advice 06/01/2021 06/02/2021 Atrial fibrillation with RVR 05/31/2021 06/04/2021 documented as of this encounter (statuses as of 10/25/2023) Immunizations Name Administration Dates Next Due COVID-19 mRNA, LNP-s, No Pre serve, 2-Dose Series ([employer]) 08/27/2020,08/05/2020 documented as of this encounter Social History Tobacco Use Types Packs/Day Years Used Date Smoking Tobacco: Never Smokeless Tobacco: Never Alcohol Use Standard Drinks/Week Comments No 0 (1 standard drink = 0.6 oz pur e alcohol) Sex and Gender Information Value Date Recorded [...] Telephone Encounter - Michelle Ramirez LPN - 10/22/2023 1:55 PM EDT PATIENT NAME: Richard Holt : 1950 GREGOR(Transesophageal Echocardiogram) / Electrical Cardioversion Instructions Procedure Date: 10/29/2023 Location: [facility]- OR Additional labs or testing needed: EKG about 30 minutes before the procedure in the cardiology office Nothing to eat or drink after midnight. No tobacco products after midnight DO NOT take your medications the morning of the procedure except for Eliquis (anticoagulant/blood thinner) Any dentures will need to be removed before procedure. Arrive at [facility] at 9.30 am at the registration desk on the fourth floor. After the procedure you will be kept for a few hours for observation, then discharged home. You will not be permitted to drive yourself home from the procedure as you will be given a form of anesthesia prior/during the procedure. Call the office at [phone] for any questions. documented in this encounter Plan of Treatment Upcoming Encounters Date Type Department Care Team (Late st Contact Info) Description 10/29/2023 9:00 AM EDT Cardiac Studies Cardiology, [address] [place] [address] [facility], Nurse Cardiology [address] [place], [place] [address] [address] 10/29/2023 10:30 AM EDT Hospital Encounter OR [facility], Operating Room, [facility] - 4th Floor [address] [place] [address] [place] [address] Tacos Talbot DO [address] [facility] [address] 10/29/2023 10:30 AM EDT - 10/29/2023 11:30 AM EDT Surgery OR [facility], Operating Room, [facility] - [facility] Floor [address] [place] [address] [place] [address] Tacos Talbot DO [address] [place] [address] DC CARDIOVERSION 10/29/2023 10:30 AM EDT Appointment Cardiac Studies, [address] [place] [address] 11/07/2023 9:15 AM EDT Appointment Card[address] Studies, [address] [address] 01/16/2024 2:30 PM EDT Office Visit Cardiology, [address] [place] [address] CRNP [address] [place], [place] [address] [address] Scheduled Procedures Name Priority Associated Diagnoses Date/Ti me DC CARDIOVERSION Paroxysmal atrial fibrillation (HCC) 10/29/2023 10:30 AM EDT ECHOCARDIOGRAPHY, TRANSESOPHAGEAL; INCLUDING PROBE PLACEMENT, IMAGE ACQUISITION, INTERPRETATION AND REPORT Paroxysmal atrial fibrillation (HCC) 10/29/2023 10:30 AM EDT Health Maintenance Due Date Last Done Comments Depression Screening 1961 Hepatitis C Screening 1967 DTaP,Tdap,and Td Vaccines (1 - Tdap) 1968 Colonoscopy 1994 Fecal Occult Blood Test 1994 Sigmoidoscopy 1994 HbA1c 06/03/2022 06/03/2021, 05/13, 01/10/2021, Additional history exists Zoster Vaccines (2 of 2) 05/12/2023 03/17/2023 COVID-19 Vaccine ( season) 2023 03/17/2023, 03/12/2022, 03/16/2021, Additional history exists Cologuard 06/22/2024 06/22/2021, 06/15/2021 Colorectal Cancer Screening 06/22/2024 Influenza Vaccine (FLU shot) Completed 02/01/2023 Pneumococcal Vaccine: 65+ Years Completed 02/01/2023 GARDASIL-HPV IMMUNIZATION SERIES Aged Out No longer eligible based on patient's age to complete this topic Hepatitis B Aged Out No longer eligi ble based on patient's age to complete this topic MENINGOCOCCAL (MENACTRA/MENVEO) Aged Out No longer eligible based on patient's age to complete this topic documented as of this encounter Medical Devices Implanted Type Area Recycling Worker Device Identifier Shelf Expiration Date Model / Serial / Lot Stent [place] 3.0x12 Rx - [id number] Implanted:Qty: 1 on 06/05/2021 by Arvind Denney DO [place] [facility] [place] [employer] [place] [id number] 11/14/2023 [id number] / / [id number] documented as of this encounter Advance Directives [...] patient have Health Care Power of Guest Room Inspector? Yes, in chart and reviewed as current * Full Code Date Activated Date Inactivated Comments 06/02/2021 5:24 PM 06/06/2021 4:07 PM This order reflects the patients wishes [...] Advance Directives occurred with: Patient Care Teams Shoe Planner Relationship Specialty Start Date End Date Tg Higgins MD [address] [facility] [place] [address] PCP - General Family Medicine 03/06/17 documented as of this encounter
--- OUTSIDE RECORDS SUMMARY | 2024-02-12 18:30 | External Medical Summary | Summary of Care ---
Author Name Unknown Organization [facility] Address [address] [place] [address] Phone [phone] Care Team Providers Care Leather Drier Name Role Phone Tg Higgins MD Primary Care Provider + Reason for Visit * Auth/Cert Specialty Diagnoses / Procedures Referred By Contac t Referred To Contact Diagnoses Paroxysmal atrial fibrillation (HCC) Paroxysmal atrial fibrillation (HCC) [I48.0] Procedures HEART ELECTROCONVERSION, EXTERNAL CV ECHO, GREGOR INTRAOPERATIVE DC CARDIOVERSION ECHOCARDIOGRAPHY, TRANSESOPHAGEAL; INCLUDING PROBE PLACEMENT, IMAGE ACQUISITION, INTERPRETATION AND REPORT Tacos Talbot, [address] [place] [address] Or [facility] [address] [place] [address] Referral ID Status Reason Start Date Expiration Date Visits Re quested Visits Authorized [id number] Encounter Details Date Type Department Care Team (Latest Contact Info) Description 10/29/2023 10:12 AM EDT - 10/29/2023 11:59 PM EDT Hospital Encounter Cardiac Studies, [facility] [address] [place], [place] [id number] Discharge Disposition: Home - Self Care Allergies Active Allergy Reactions Criticality Noted Date Comments Ceftriaxone Rash Medium 06/06/2021 documented as of this encounter (statuses as of 10/30/2023) Medications Medication Sig Dispensed Refills Start Date [...] by mouth in the morning. 08/12/2023 Active Amiodarone HCl 200 MG Oral Tablet (Cordarone) Take 1 Tablet by mouth in the morning. 34 Tablet 11 10/29/2023 Active Metoprolol Succinate ER 25 MG Oral Tablet Extended Release 24 Hour (toPROL XL) Take 0.5 Tablets by mouth in the morning. Take in evening.. 30 Tablet 5 10/29/2023 Active documented as of this encounter (statuses as of 10/30/2023) Active Problems Problem Noted Date Diagnosed Date HFrEF (heart failure with reduced ejection fract ion) 10/11/2023 Paroxysmal atrial fibrillation 10/11/2023 Coronary artery disease invo lving [place] coronary artery of [place] heart without angina pectoris 10/11/2023 Acute systolic [...] as of this encounter (statuses as of 10/30/2023) Resolved Problems Problem Noted Date Diagnosed Date Resolved Date Near syncope 10/11/2023 10/12/2023 Left against medical advice 06/01/2021 06/02/2021 Atrial fibrillation with RVR 05/31/2021 06/04/2021 documented as of this encounter (statuses as of 10/30/2023) Immunizations Name Administration Dates Next Due COVID-19 mRNA, LNP-s, No Pre serve, 2-Dose Series ([employer]) 08/27/2020,08/05/2020 documented as of this encounter Social [...] shopping? (15 years old or older) No 05/31/20 24 Cognitive Status Response Date of Assessm ent Because of a physical, menta l, or emotional condition, do you have serious difficulty concentrating, remembering, or making decisions? (5 years old or older) No 10/11/2023 documented as of this encounter Plan of Treatment Upcoming Encounters Date Type Department Care Team (Late st Contact Info) Description 11/07/2023 9:15 AM EDT Appointment Cardiac Studies, [facility] [address] [place] [address] 01/16/2024 2:30 PM EDT Office Visit Cardiology, [place] [address] [place] [address] CRNP [address] [facility] [place] [address] Pending Results Name Type Priority Associated Diagnoses Date /Time TRANSESOPHAGEAL ECHO (COMPLETE) Echocardiology Routine Paroxysmal atrial fibrillation (HCC) 10/29/2023 11:25 AM EDT Health Maintenance Due Date Last [...] this encounter Medical Devices Implanted Type Area Supervisor Fiber Locking Device Identifier Shelf Expiration Date Model / Serial / Lot Stent Oren 3.0x12 Rx - [id number] Implanted:Qty: 1 on 06/05/2021 by Arvind Denney DO at [facility] [place] [employer] : VASCULAR [id number] 11/14/2023 [id number] / / [id number] documented as of this encounter Advance Directives [...] the patient have Health Care Power of Side Show Entertainer? Yes, in chart and reviewed as current [...] Advance Directives occurred with: Patient Care Teams Leather Drier Relationship Specialty Start Date End Date Tg Higgins MD [address] [facility] [place] [address] PCP - General Family Medicine 03/06/17 documented as of this encounter
--- OUTSIDE RECORDS SUMMARY | 2024-02-12 18:30 | External Medical Summary | Summary of Care ---
Author Name Unknown Organization [facility] Address [address] [place] [address] Phone [phone] Care Team Providers Care Operator Vacuum Name Role Phone Tg Higgins MD Primary Care Provider + Reason for Visit * Reason Comments Nurse Documentation Encounter Details Date Type Department Care Team ([facility] st Contact Info) Description 10/29/2023 9:00 AM EDT Cardiac Studies Cardiology, [address] [id number] [facility], Nurse Cardiology [address] [place], [place] [id number] Arrived Allergies Active Allergy Reactions Criticality Noted Date Comments Ceftriaxone Rash Medium 06/06/2021 documented as of this encounter (statuses as of 10/29/2023) Medications Medication Sig Dispensed Refills Start Date End Date Status LUMIGAN 0.01 % ophthalmic solution APPLY 1 DROP INTO BOTH EYES AT BEDTIME 5 07/08/2017 Suspended Aspirin EC 81 MG Oral Tablet Delayed Release Take 1 Tablet by mouth in the morning. 06/26/2022 Suspended Additional Information Apixaban 5 MG Oral Tablet (Eliquis) Take 1 Tablet by mouth in the morning and 1 Tablet before bedtime. 60 Tablet 12 09/19/2022 Suspended Additional Information Cholecalciferol 125 MCG (5000 UT) Oral Capsule Take 1 Capsule by mouth in the morning. 07/24/2022 Suspended Brinzolamide 1 % Ophthalmic Suspension (Azopt) Instill 1 Drop into the left eye daily. 07/16/2023 Suspended Methylcobalamin 1 MG Oral Tablet Chewable Take by mouth. 02/01/2023 Suspended Vitamin C 500 MG Oral Tablet (Ascorbic Acid) Take 1 Tablet by mouth in the morning and 1 Tablet before bedtime. Suspended Crestor 5 MG Oral Tablet Take 1 Tablet by mouth in the morning. 08/12/2023 Suspended Metoprolol Succinate ER 50 MG Oral Tablet Extended Release 24 Hour (toPROL XL) Take 1 Tablet by mouth in the morning. 90 Tablet 3 10/22/2023 Suspended Additional Information documented as of this encounter (statuses as of 10/29/2023) Active Problems Problem Noted Date Diagnosed Date HFrEF (heart failure with reduced ejection fract ion) 10/11/2023 Paroxysmal atrial fibrillation 10/11/2023 Coronary artery disease invo lving knik coronary artery of knik heart without angina pectoris 10/11/2023 Acute systolic [...] as of this encounter (statuses as of 10/29/2023) Resolved Problems Problem Noted Date Diagnosed Date Resolved Date Near syncope 10/11/2023 10/12/2023 Left against medical advice 06/01/2021 06/02/2021 Atrial fibrillation with RVR 05/31/2021 06/04/2021 documented as of this encounter (statuses as of 10/29/2023) Immunizations Name Administration Dates Next Due COVID-19 mRNA, LNP-s, No Pre serve, 2-Dose Series (Clinical Ink) 08/27/2020,08/05/2020 documented as of this encounter Social [...] Team (Late st Contact Info) Description 10/29/2023 10:30 AM EDT Appointment [address] [address] 11/07/2023 9:15 AM EDT Appointment [address] Studies, [address] [address] 01/16/2024 2:30 PM EDT Office Visit Cardiology, [place] [place] [address] [facility] [address] [facility] [address] Scheduled Procedures Name Priority Associated Diagnoses Date/Ti [...] this encounter Medical Devices Implanted Type Area Boring And Filling Machine Operator Device Identifier Shelf Expiration Date Model / Serial / Lot Stent [place] 3.0x12 Rx - [id number] Implanted:Qty: 1 on 06/05/2021 by Arvind Denney DO at [facility] [employer] : VASCULAR [id number] 11/14/2023 [id number] / / [id number] documented as of this encounter Advance Directives [...] the patient have Health Care Power of Molder Closed Molds? Yes, in chart and reviewed as current [...] Advance Directives occurred with: Patient Care Teams Operator Vacuum Relationship Specialty Start Date End Date Tg Higgins MD [address] [facility] [place] [address] PCP - General Family Medicine 03/06/17 documented as of this encounter
--- OUTSIDE RECORDS SUMMARY | 2024-02-12 18:30 | External Medical Summary | Summary of Care ---
Author Name Unknown Organization [facility] Address [address] [place] [address] Phone [phone] Care Team Providers Care Manager Product Support Name Role Phone Hunter Higgins MD Primary Care Provider + Reason for Visit * Auth/Cert Specialty Diagnoses / Procedures Referred By Contac t Referred To Contact Diagnoses Paroxysmal atrial fibrillation (HCC) Paroxysmal atrial fibrillation (HCC) [I48.0] Procedures HEART ELECTROCONVERSION, EXTERNAL CV ECHO, GREGOR INTRAOPERATIVE DC CARDIOVERSION ECHOCARDIOGRAPHY, TRANSESOPHAGEAL; INCLUDING PROBE PLACEMENT, IMAGE ACQUISITION, INTERPRETATION AND REPORT Tacos Talbot DO [address] [place] [address] Or [facility] [address] [place] [address] Referral ID Status Reason Start Date Expiration Date Visits Re quested Visits Authorized [id number] Encounter Details Date Type Department Care Team (Latest Contact Info) Description 10/29/2023 9:19 AM EDT - 10/29/2023 1:13 PM EDT Hospital Encounter OR [facility], Operating Room, [facility] - 4th Floor [address] [place] [address] Tacos Talbot DO [address] [place] [address] EKG Report Discharge Disposition: Home - Self Care Allergies [...] the morning. 08/12/2023 Active Metoprolol Succinate ER 50 MG Oral Tablet Extended Release 24 Hour (toPROL XL) Take 1 Tablet by mouth in the morning. 90 Tablet 3 10/22/2023 10/29/2023 Discontinued documented as of this encounter (statuses as of 10/30/2023) Active Problems Problem Noted Date Diagnosed Date HFrEF (heart failure with reduced ejection fract ion) 10/11/2023 Paroxysmal atrial fibrillation 10/11/2023 Coronary artery disease invo lving cheesh-na coronary artery of cheesh-na heart without angina pectoris 10/11/2023 Acute systolic [...] mRNA, LNP-s, No Pre serve, 2-Dose Series (iXpert) 08/27/2020,08/05/2020 documented as of this encounter Social [...] Sign Reading Time Taken Comments Blood Pressure 113/80 10/29/2023 12:50 PM EDT Pulse 75 10/29/2023 12:50 PM EDT Temperature 36.2 C (97.2 F) 10/29/2023 12:50 PM E DT Respiratory Rate 16 10/29/2023 12:20 PM EDT Oxygen Saturation 100% 10/29/2023 12:50 PM EDT Inhaled Oxygen Concentration - - Weight 98.9 kg (218 lb) 10/29/2023 9:25 AM EDT Height 182.9 cm (6') 10/29/2023 9:25 AM EDT Body Mass Index 29.57 10/29/2023 9:25 AM EDT documented in this [...] No 10/11/2023 documented as of this encounter Discharge Summaries * Tacos Talbot DO - 10/29/2023 12:30 PM EDT [address] [address] Admission Date: 10/29/2023 Discharge Date: DISCHARGE DIAGNOSES: Atrial fibrillation with rapid ventricular response Moderate to severe mitral reurgitation Attending Provider: Tacos Talbot DO CONDITION ON DISCHARGE: stable DISPOSITION ON DISCHARGE: home FOLLOW-UP: with cardiology in 1 week Future Appointments Appt Date/Time Provider Department 11/07/2023 9:15 AM STRESS TECH [facility] Cardiac Studies, [facility] 01/16/2024 2:[address] [facility] MEDICATIONS ON DISCHARGE: MEDICATION UPDATES AT DISCHARGE CONTINUE taking these medications but follow up with your Primary Care Physician (PCP). INSTRUCTIONS amiodarone 200 MG Tablet Commonly known as: Cordarone Take 1 Tablet by mouth in the morning. Apixaban 5 MG Tablet Commonly known as: Eliquis Take 1 Tablet by mouth in the morning and 1 Tablet before bedtime. aspirin enteric coated 81 MG Tbec Take 1 Tablet by mouth in the morning. brinZOLamide 1 % ophthalmic suspension Commonly known as: Azopt Instill 1 Drop into the left eye daily. Cholecalciferol 125 MCG (5000 UT) Capsule Take 1 Capsule by mouth in the morning. Crestor 5 MG Tablet Generic drug: rosuvastatin Take 1 Tablet by mouth in the morning. Lumigan 0.01 % ophthalmic solution Generic drug: Bimatoprost APPLY 1 DROP INTO BOTH EYES AT BEDTIME Methylcobalamin 1 MG Chew Take by mouth. metoprolol succinate XL 25 MG Tb24 Commonly known as: toPROL XL Take 0.5 Tablets by mouth in the morning. Take in evening.. Vitamin C 500 MG Tablet Commonly known as: Ascorbic Acid Take 1 Tablet by mouth in the morning and 1 Tablet before bedtime. ALLERGIES: Ceftriaxone INSTRUCTIONS: Activity: no strenuous activity for 24 hours Diet: heart healthy diet Code Status: Prior [facility] patient: no ADMISSION HISTORY & PHYSICAL EXAM (focused): 73-year-old male with a past medical history of CAD, paroxysmal atrial fibrillation, moderate to severe mitral regurgitation, and possible low-flow low gradient aortic stenosis with referred by [facility]inic for transesophageal echocardiogram to better assess the degree of mitral regurgitation and to undergo direct current cardioversion to return patient back to sinus rhythm. HOSPITAL COURSE (focused): patient underwent transesophageal echocardiogram showed no left atrial clot or left atrial appendage thrombus. Severe mitral regurgitation was noted. Patient tolerated procedure well. Patient then underwent a direct current cardioversion x1 with 200 joules of energy delivered which successfully converted patient to sinus bradycardia. Operations & Procedures: Transesophageal echocardiogram and direct current cardioversion. Leigh Interpretation (focused): Will thrombus in left atrium or left atrial appendage with severe mitral regurgitation SELECTED RESULTS: Last recorded weight: Weight: 98.9 kg (218 lb) (10/29/23924) Laboratory: CHEMISTRY: BUN, Creatinine, GFR Estimated, Sodium, Potassium, Chloride, Carbon Dioxide, Glucose, Calcium (see below for most recent value): Lab Results Component Value Date/Time BUN 22 (H) 10/12/2023 03:24 AM BUN 17 08/05/2023 10:06 AM CREAT 1.0 10/12/2023 03:24 AM CREAT 1.0 08/05/2023 10:06 AM NA 138 10/12/2023 03:24 AM NA 141 08/05/2023 10:06 AM POTASSIUM 4.2 10/12/2023 03:24 AM POTASSIUM 4.7 08/05/2023 10:06 AM CL 108 (H) 10/12/2023 03:24 AM CL 108 (H) 08/05/2023 10:06 AM CO2 20 (L) 10/12/2023 03:24 AM CO2 26 08/05/2023 10:06 AM CA 9.3 10/12/2023 03:24 AM CA 9.5 08/05/2023 10:06 AM HEMOGLOBIN: Hgb (see below for last three most recent values): Lab Results Component Value Date/Time HGB 13.9 (L) 10/12/2023 03:24 AM HGB 14.6 10/11/2023 11:08 AM HGB 14.0 08/05/2023 10:06 AM HGB 15.5 07/13/2022 01:16 PM HGB 15.0 12/29/2021 01:10 PM LIVER FUNCTION TEST: Albumin, AST, ASTCMC (resulted at [facility] lab), Alkaline Phosphatase, ALT, ALTCMC (resulted at [facility] lab), Bilirubin Total, TBilCMC (resulted at [facility] lab), Protein - (see below for most recent value of each component): Lab Results Component Value Date/Time AST 32 06/01/2021 12:23 PM ALKP 45 08/05/2023 10:06 AM ALT 15 08/05/2023 10:06 AM TBIL 0.9 08/05/2023 10:06 AM PROT 6.3 08/05/2023 10:06 AM Complications: none CONSULTS ORDERED: None REFERRING PHYSICIAN: Ref: HUNTER HIGGINS[[id number]] [address] [facility] [place] [address] (office) [phone] (fax) PRIMARY CARE PROVIDER: PCP: Hunter Higgins MD [address] [facility] [place] / [place] [address] (office) [phone] (fax) Note: To contact a physician responsible for this patients hospital care, please call [facility] [phone]. documented in this encounter Progress Notes * Tacos Talbot DO - 10/29/2023 12:36 PM EDT Patient maintain sinus rhythm. Heart rates in the 50s to low 60s. Patient tolerated procedure well. Plan: - Will start patient on amiodarone 200 mg p.o. daily and reduce his metoprolol succinate to 12.5 mgp.o. daily. - Patient will follow up with Cardiology in 1 week. Will need to check TSH. documented in this encounter H&P Notes * Tacos Talbot DO - 10/29/2023 10:39 AM EDT Cardiology History and physical HPI: 73 year old male with past medical history of 1. CAD (DALE to mid LAD 05/2021) 2. Ischemic/tachycardia induced cardiomyopathy (LVEF 25-29% on 06/05/2021 which recovered to 50% on03/01/2022) 3. Paroxysmal atrial fibrillation 4. Moderate to severe mitral regurgitation 5. Possible low-flow low gradient aortic stenosis 6. Moderately enlarged proximal ascending aorta 7. HLD Patient was referred by valve Clinic for a transesophageal echocardiogram to better assess the degree of mitral regurgitation and have patient undergo a direct current cardioversion to return patientto sinus rhythm so they can better assess the severity of her aortic valve stenosis. Patient stateshe has been doing well. He has chronic dyspnea with exertion which has not worsened in frequency orseverity. He denies chest pain, dyspnea at rest, orthopnea, PND, palpitations, or syncope. Denies any prior history of dysphagia /esophageal disorders or liver disorders. He denies any abnormal bleeding. He states he took his Eliquis this morning. Past Medical History: Diagnosis Date Ascending aorta dilation (HCC) Coronary artery disease Dyslipidemia, goal LDL below 70 HTN (hypertension) Ischemic cardiomyopathy Paroxysmal A-fib (HCC) Past Surgical History: Procedure Laterality Date CORONARY ANGIOGRAPHY W/LEFT HEART CATH Right 06/05/2021 CORONARY ANGIOGRAPHY W/LEFT HEART CATH performed by Arvind Denney DO at [facility] INFORMATION Colonoscopy. PEDIATRIC ECHO GREGOR CONGENITAL INTERP - PROBE PLACEMENT N/A 06/05/2021 ECHOCARDIOGRAPHY, TRANSESOPHAGEAL, FOR CONGENITAL ANOMALIES; INCLUDING PROBE PLACEMENT, IMAGE ACQUISITION, INTERPRETATION AND REPORT performed by [facility] And Out Surgery [facility] at OR [facility] Social History Socioeconomic History Marital status: Single [...] Housing Stability: Not on file Review of patient's allergies indicates: Allergen Reactions Ceftriaxone Rash Current Facility-Administered Medications Medication Dose Route Frequency Provider Last Rate Last Admin isolyte-S pH 7.4 infusion Intravenous Continuous Tacos Talbot, DO 10 mL/hr at 10/29/23 0952 New Bag at 10/29/23 0952 Review of Systems: As per HPI BP 129/87 | Pulse 101 | Temp 36.2 C (97.2 F) (Tympanic) | Resp 18 | Ht 1.829 m (6') | Wt 98.9 kg (218 lb) | SpO2 97% | BMI 29.57 kg/m | BSA 2.24 m GEN: NAD, AAOX3 HEENT: No JVD CVS: Nl1 S1, S2 Irregular irregular rhythm, 2/6 systolic murmur Chest: CTA B/L No wheezing, rhonchi, rales Abd: Soft NT, ND, +BS Ext: no edema Assessment 1. Persistent atrial fibrillation 2. Cardiomyopathies possible tachycardia induced 3. Moderate to severe mitral regurgitation 4. Low-flow low gradient aortic stenosis 5. CAD Plan Patient doing well today. He denies chest pain, dyspnea, syncope. On clinical exam is euvolemic. Will proceed with transesophageal echocardiogram and direct current cardioversion. Risks of procedure including but not limited to esophageal perforation, cardiac arrest, stroke discussed with patient. Patient understands risks and will proceed with procedure. Valve Clinic would like patient to be on amiodarone to maintain sinus rhythm after cardioversion. Patient agrees to start amiodarone. documented in this encounter Procedure Notes * Tacos Talbot DO - 10/29/2023 11:55 AM EDTAssociated Order(s): EKG REASON FOR STUDY: Arrhythmia CONCLUSIONS: Sinus bradycardia with premature atrial contractions Nonspecific ST and T wave abnormality Abnormal ECG When compared with ECG of 29-Oct-2023 09:13, Sinus rhythm has replaced Atrial fibrillation Vent. rate has decreased by 41 bpm Ventricular Rate: 53 Atrial Rate: 53 KS Interval: 176 QRS Duration: 92 QT/QTc: 454/427 ms P-R-T [place]: 24 : -17 : -9 degrees * Tacos Talbot DO - 10/29/2023 11:35 AM EDT PROCEDURE NOTE - Transesophageal Echo - Cardiology [facility] [address] Name: Richard Holt Location: [facility] Date: 10/29/2023 Time: 11:35 AM PRIOR TO PROCEDURE: Informed consent was obtained under separate cover. The patient was evaluated prior to the procedure. See conscious sedation form. The patient was identified as Richard Holt and the procedure verified as transesophageal echo. A Time Out was held and the following information confirmed. Verify Correct Patient: Yes Verify Correct Site: Yes Verify Procedure Matches Verbalized Consent: Yes Verify Correct Position: Yes Availability of Necessary Equipment: Yes Other Healthcare Professional(s) Verbalize(s) Agreement with Timeout: Yes Site Marked: N/A Anticoagulation / Antiplatelet: Yes - Eliquis PROCEDURE NOTE: Procedure: GREGOR. Indication: Atrial fibrillation Gas Tester/Box Loader: Staff physician: Dr. Talbot Complication/Corrective Action: No Comments/Findings: See post-procedure diagnosis/findings Description of each procedure: Pre-Procedure diagnosis/indications: Atrial fibrillation with rapid ventricular response Post-procedure diagnosis/findings: no thrombus in left atrium or left atrial appendage, moderate tosevere mitral regurgitation Physician: Staff physician: Dr. Talbot Assistants: None Anesthesia: as per anesthesia team Disposition: Following the procedure the patient was taken to the PACU in stable condition. I performed the procedure. * Tacos Talbot DO - 10/29/2023 11:32 AM EDT PROCEDURE NOTE - Cardioversion - Cardiology [facility] [address] Name: Richard Holt Location: [facility] Date: 10/29/2023 Time: 11:32 AM PRIOR TO PROCEDURE: Informed consent was obtained under separate cover. The patient was evaluated prior to the procedure. The patient was identified as Richard Holt and the procedure verified as cardioversion. A Time Out was held and the following information confirmed. Verify Correct Patient: Yes Verify Correct Site: Yes Verify Procedure Matches Verbalized Consent: Yes Verify Correct Position: Yes Availability of Necessary Equipment: Yes Other Healthcare Professional(s) Verbalize(s) Agreement with Timeout: Yes Site Marked: N/A Anticoagulation / Antiplatelet: Yes - Eliquis PROCEDURE NOTE: Procedure: Direct-current cardioversion Indication: atrial fibrillation Gas Tester/Box Loader: Dr. Talbot Complication/Corrective Action: None Comments/Findings: Cardioversion #1: Energy 200 Joules, resulting rhythm: Sinus bradycardia Description of Procedure: Cardioversion #1: Energy 200 Joules, resulting rhythm: normal sinus rhythm Pre-procedure Diagnosis: atrial fibrillation Post-procedure Diagnosis: Successful cardioversion to sinus rhythm Antiarrhythmic Medications: None Proceduralist: Tacos Talbot DO Anesthesia: As per Anesthesia team Disposition: Following the procedure the patient was taken to the PACU in stable condition. I performed the procedure. documented in this encounter Nursing Notes * Kathrin Luna RN - 10/28/2023 9:28 AM EDT Patient did not return call to Presurgery prior to surgical date. I&O surgery contacts patientsthe day before surgery with instruction as well. Chart review done for Anesthesia record. NO ANESTHESIA EVAL REQUESTED PER CASE DOCUMENTATION. * Kathrin Luna RN - 10/23/2023 1:16 PM EDT Left message on mobile phone for return call @ [phone] by Patient at least one week prior to surgery date or to leave a number where they can be reached . Instructed clinic open hours are M-F 8:00a- 4:00p. documented in this encounter Plan of Treatment Upcoming Encounters Date Type Department Care Team (Late st Contact Info) Description 11/07/2023 9:15 AM EDT Appointment Cardiac Studies, [facility] [address] [facility] [place] [address] 01/16/2024 2:30 PM EDT Office Visit Cardiology, [place] [address] [facility] [place] [address] CRNP [address] [place] [address] Health Maintenance Due Date Last Done Comments Depression Screening 1961 Hepatitis C Screening 1967 DTaP,Tdap,and Td Vaccines (1 - Tdap) 1968 Colonoscopy 1994 Fecal Occult Blood Test 1994 Sigmoidoscopy 1994 HbA1c 06/03/2022 06/03/2021, 05/13, 01/10/2021, Additional history exists Zoster Vaccines (2 of 2) 05/12/2023 03/17/2023 COVID-19 Vaccine (6 - 2022-24 season) 2023 03/17/2023, 03/12/2022, 03/16/2021, [...] this encounter Medical Devices Implanted Type Area Raw Stock Machine Loader Device Identifier Shelf Expiration Date Model / Serial / Lot Stent [place] 3.0x12 Rx - [id number] Implanted:Qty: 1 on 06/05/2021 by Arvind Denney DO at [facility] [employer] : VASCULAR [id number] 11/14/2023 [id number] / / [id number] documented as of this encounter Procedures Procedure Name Priority Date/Time Associated Diagnosis Comments HC ECG TRACING ONLY STAT 10/29/2023 1 1:55 AM EDT Arrhythmia TRANSESOPHAGEAL ECHO (COMPLETE) Routine 10/29/2023 10:36 AM EDT documented in this encounter Results * EKG (10/29/2023 11:55 AM EDT) 10/29/2023 11:5 5 AM EDT Narrative Procedure Note Tacos Talbot DO - 10/29/2023 11:55 AM EDT REASON FOR STUDY: Arrhythmia CONCLUSIONS: Sinus bradycardia with premature atrial contractions Nonspecific ST and T wave abnormality Abnormal ECG When compared with ECG of 29-Oct-2023 09:13, Sinus rhythm has replaced Atrial fibrillation Vent. rate has decreased by 41 bpm Ventricular Rate: 53 Atrial Rate: 53 KS Interval: 176 QRS Duration: 92 QT/QTc: 454/427 ms P-R-T [place]: 24 : -17 : -9 degrees Tacos Talbot DO EKG [facility] CARDIOLOGY * TRANSESOPHAGEAL ECHO (COMPLETE) (10/29/2023 10:36 AM EDT) LEFT VENTRICULAR EJECTION FRACTION 35 % [employer] CARDIOLOGY 10/29/2023 10:3 6 AM EDT Karla Ayonaudi SIMON [facility]ARDIOLOGY [facility] CARDIOLOGY documented in this encounter Visit Diagnoses Diagnosis Arrhythmia Cardiac dysrhythmia, unspecified documented in this encounter Administered Medications Inactive Administered Medications - up to 3 most recent administrations Medication Order MAR Action Action Date Dose Rate Site isolyte-S pH 7.4 infusion Intravenous, at 10 mL/hr, Plasma-LYTE 148, isolyte-S, and isolyte-S pH 7.4 are considered equivalent - including for MAR barcode scanning., CONTINUOUS, Starting on Sat10/29/23 at 1015, Until Sat10/29/23 at 1713, Pre-Op Restarted 10/29/2023 11:05 AM EDT Continue from Pre-Op 10/29/2023 10:42 AM EDT 10 mL/hr New Bag 10/29/2023 9:52 AM EDT 10 mL/hr documented in this encounter Active and Recently Administered Medications Times are shown in EDT. Continuous Medication Order 10/27/2023 10/28/2023 10/29/2023 isolyte-S pH 7.4 infusion Intravenous, at 10 mL/hr, Plasma-LYTE 148, isolyte-S, and isolyte-S pH 7.4 are considered equivalent - including for MAR barcode scanning., CONTINUOUS, Starting on Sat10/29/23 at 1015, Until Sat10/29/23 at 1713, Pre-Op 0952 (New Bag - Prov ider: Shara Choi RN)1042 (Continue from Pre-Op - Provider: Fabiola Dye CRNA)1104 (Paused - Provider: Fabiola Dye CRNA - Comment: Switch to gravity)1105 (Restarted - Provider: Fabiola Dye CRNA) documented in this encounter Advance Directives * [...] the patient have Health Care Power of Metal Buffer? Yes, in chart and reviewed as current [...] Advance Directives occurred with: Patient Care Teams Manager Product Support Relationship Specialty Start Date End Date Hunter Higgins MD [address] [facility] [place] [address] PCP - General Family Medicine 03/06/17 documented as of this encounter"
--- OUTSIDE RECORDS SUMMARY | 2024-02-12 18:30 | External Medical Summary | Summary of Care ---
Author Name Unknown Organization [facility] Address [address] [place] [address] Phone [phone] Care Team Providers Care Commercial Truck Driver Name Role Phone Tg Higgins MD Primary Care Provider + Reason for Visit * Reason Onset Date Comments Procedure 10/22/2023 Encounter Details Date Type Department Care Team ([facility] st Contact Info) Description [facility]/22[facility] [address] [place] [address] CRNP [address] [place] [address] Procedure Allergies Active Allergy Reactions Criticality Noted Date Comments Ceftriaxone Rash Medium 06/06/2021 documented as of this encounter (statuses as of 11/06/2023) Medications Medication Sig Dispensed Refills Start Date [...] as of this encounter (statuses as of 11/06/2023) Active Problems Problem Noted Date Diagnosed Date HFrEF (heart failure with reduced ejection fract ion) 10/11/2023 Paroxysmal atrial fibrillation 10/11/2023 Coronary artery disease invo lving pokagon coronary artery of pokagon heart without angina pectoris 10/11/2023 Acute systolic [...] as of this encounter (statuses as of 11/06/2023) Resolved Problems Problem Noted Date Diagnosed Date Resolved Date Near syncope 10/11/2023 10/12/2023 Left against medical advice 06/01/2021 06/02/2021 Atrial fibrillation with RVR 05/31/2021 06/04/2021 documented as of this encounter (statuses as of 11/06/2023) Immunizations Name Administration Dates Next Due COVID-19 mRNA, LNP-s, No Pre serve, 2-Dose Series ([employer]) 08/27/2020,08/05/2020 documented as of this encounter Social [...] as of this encounter Miscellaneous Notes * Addendum Note - Michelle Garcia LPN - 11/06/2023 10:59 AM EDTAddended by: MICHELLE GARCIA on: 11/06/2023 10:59 AM Modules accepted: Orders * Telephone Encounter - Michelle Garcia LPN - 10/22/2023 1:55 PM EDT PATIENT NAME: Richard Holt : 1950 GREGOR(Transesophageal Echocardiogram) / Electrical Cardioversion Instructions Procedure Date: 10/29/2023 Location: [facility]- [place] Additional labs or testing needed: EKG about 30 minutes before the procedure in the cardiology office Nothing to eat or drink after midnight. No tobacco products after midnight DO NOT take your medications the morning of the procedure except for Eliquis (anticoagulant/blood thinner) Any dentures will need to be removed before procedure. Arrive at [facility] at 9.30 am at the registration desk on the fourth floor. After the procedure you will be kept for a few hours for observation, then discharged home. You will not be permitted to drive yourself home from the procedure as you will be given a form of anesthesia prior/during the procedure. Call the office at [phone] for any questions. documented in this encounter Plan of Treatment Upcoming Encounters Date Type Department Care Team (Late st Contact Info) Description 11/08/2023 3:00 PM EDT [place] [place] [address] CRNP [address] [facility] [place] [address] 01/16/2024 2:30 PM EDT Office Visit [facility] [place] [address] [place] [address] CRNP [facility] [place] [address] Scheduled Orders Name Type Priority Associated Diagnoses Orde r Schedule EKG COMPLETE (TRACING AND INTERP) EKG Routine PAF (paroxysmal atrial fibrillation) (HCC) Ordered: 11/06/2023 Health Maintenance Due Date Last Done Comments [...] this encounter Medical Devices Implanted Type Area Pig Breeder Device Identifier Shelf Expiration Date Model / Serial / Lot Stent [place] 3.0x12 Rx - [id number] Implanted:Qty: 1 on 06/05/2021 by Arvind Denney DO at [facility] [employer] : VASCULAR [id number] 11/14/2023 [id number] / / [id number] documented as of this encounter Visit Diagnoses Diagnosis PAF (paroxysmal atrial fibrillation) (HCC)- Primary Atrial fibrillation documented in this encounter Advance Directives * [...] the patient have Health Care Power of Nuclear Fuel Processing Technician? Yes, in chart and reviewed as current [...] Advance Directives occurred with: Patient Care Teams Commercial Truck Driver Relationship Specialty Start Date End Date Tg Higgins MD [address] [facility] [place] [address] PCP - General Family Medicine 03/06/17 documented as of this encounter
--- OUTSIDE RECORDS SUMMARY | 2024-02-12 18:30 | External Medical Summary | Summary of Care ---
Author Name Unknown Organization [facility] Address [address] [place] [address] Phone [phone] Care Team Providers Care Assistant Grocery Store Manager Name Role Phone Tg Higgins MD Primary Care Provider + Reason for Visit * Reason Comments Hospital Follow-Up * Evaluate & Treat - Unlimited Visits (Within 10 days (routine)) - Pending Review Specialty Diagnoses / Procedures Referred By Hakeem wheeler Referred To Contact Cardiovascular Medicine / Cardiology Diagnoses Paroxysmal atrial fibrillation (HCC) HFrEF (heart failure with reduced ejection fraction) (HCC) Juan Zhao DO [address] [facility] [place] [address] Referral ID Status Reason Start Date Expiration Date Visits Requested Visits Authorized [id number] Pending Review Specialty Services Required 10/12/[phone] Encounter Details Date Type Department Care Team ([facility] Contact Info) Description 10/22/2023 1:30 PM EDT Office Visit Cardiology [place] [address] [place] [address] CRNP [address] [place], [place] [phone] Persistent atrial fibrillation (HCC)*; Hospital discharge follow-up; Chronic coronary artery disease; Ischemic cardiomyopathy; HFrEF (heart failure with reduced ejection fraction) (HCC); Nonrheumatic aortic valve stenosis; Moderate aortic regurgitation; Dyslipidemia, goal LDL below 70; Aortic root enlargement (HCC); Ascending aorta enlargement (HCC) Allergies Active Allergy Reactions Criticality Noted Date Comments Ceftriaxone Rash Medium 06/06/2021 documented as of this encounter (statuses as of 10/22/2023) Medications Medication Sig Dispensed Refills Start Date [...] in the morning. 90 Tablet 3 10/22/2023 Active Metoprolol Succinate ER 25 MG Oral Tablet Extended Release 24 Hour (toPROL XL) Take 1 Tablet by mouth in the morning. 90 Tablet 3 08/13/2023 10/22/2023 Discontinued documented as of this encounter (statuses as of 10/22/2023) Active Problems Problem Noted Date Diagnosed Date HFrEF (heart failure with reduced ejection fract ion) 10/11/2023 Paroxysmal atrial fibrillation 10/11/2023 Coronary artery disease invo lving chitimacha coronary artery of chitimacha heart without angina pectoris 10/11/2023 Acute systolic [...] as of this encounter (statuses as of 10/22/2023) Resolved Problems Problem Noted Date Diagnosed Date Resolved Date Near syncope 10/11/2023 10/12/2023 Left against medical advice 06/01/2021 06/02/2021 Atrial fibrillation with RVR 05/31/2021 06/04/2021 documented as of this encounter (statuses as of 10/22/2023) Immunizations Name Administration Dates Next Due COVID-19 mRNA, LNP-s, No Pre serve, 2-Dose Series ([employer]) 08/27/2020,08/05/2020 documented as of this encounter Social [...] Sign Reading Time Taken Comments Blood Pressure 128/90 10/22/2023 1:33 PM EDT Pulse 112 10/22/2023 1:33 PM EDT Temperature - - Respiratory Rate - - Oxygen Saturation - - Inhaled Oxygen Concentration - - Weight 98.9 kg (218 lb) 10/22/2023 1:33 PM EDT Height - - Body Mass Index 29.57 10/11/2023 10:31 AM EDT documented in this encounter Functional [...] (15 years old or older) No 10/11/19 24 Cognitive Status Response Date of Assessm ent Because of a physical, menta l, or emotional condition, do you have serious difficulty concentrating, remembering, or making decisions? (5 years old or older) No 10/11/2023 documented as of this encounter Patient Instructions * Patient Instructions* Karla Lane CRNP - 10/22/2023 2:11 PM EDT -Increase Metoprolol Succinate to 50 mg daily documented in this encounter Progress Notes * Karla Lane CRNP - 10/22/2023 1:30 PM EDT 10/22/2023 Cardiology Follow Up Primary Advanced Manufacturing Engineer: Dr. Talbot Cardiac Problems: 1. CAD -DALE x1 mLAD, has 50% RCA stenosis 06/05/21 2. Hx Ischemic/Nonischemic CMP -EF 30% 09/16/2023 -EF 50% 02/2022 -EF 40% 09/15/2021 -EF 25-29% 06/05/2021 3. HFrEF 4.Moderate-Severe Aortic Stenosis 5.Moderate Aortic Regurgitation 6.Persistent AFIB -DCCV 06/06/2021 -CHADVASC 2 (age, CHF) . Moderately Enlarged Proximal Ascending Aorta -4.8 cm via echo 09/16/2023 -4.8 cm via echo 02/2022 -4.[address] 05/2021 7.Aortic Root Enlarged -4.4 cm via echo 09/16/2023 -4.3 cm 2021 8.Dyslipidemia HPI: Richard Holt is a 73 year old male who presented to [facility] ED on 05/30/21 for evaluation of AFIBRVR, however left AMA. Returned to [facility] on 05/31/21 with reports of increase shortness of breath, orthopnea, and productive cough for the past few weeks. He was found to be in atrial fibrillation rapidventricular response. He was admitted and a transthoracic echocardiogram showed LVEF of 30-34%. He had signed out AMA but came back to the hospital and was eventually transferred to [facility]. There he underwent a heart catheterization with a drug-eluting stent placed to the mid LAD. Initialtransthoracic echocardiogram showed LVEF 30 34%, moderate to severe mitral regurgitation, and concern for possible low-flow low gradient aortic stenosis. Patient was following [facility] pharmacy to optimize GDMT. Repeat echocardiogram on [...] severity of aortic stenosis. Patient admitted to [facility] 10/11/23-10/12/23. He was scheduled for an outpatient GREGOR/DCCV when he had significant nausea and became diaphoretic An PROCEDURE TECH was called and patient was noted to be hypotensive with systolic blood pressure of 70. Patient generally felt unwell. Entresto discontinued. Here today for hospital discharge follow up. Weight is up 4 lb since discharge. Feeling better since hospitalization, but continues to be short of breath. Denies lightheadedness/dizziness, falls, and syncope. REVIEW OF SYSTEMS: See HPI for pertinent [...] mouth in the morning. Metoprolol Succinate ER 50 MG Oral Tablet [...] Activity Alcohol use: No Drug use: No OBJECTIVE/PHYSICAL EXAMINATION: BP 128/90 | Pulse 112 | Wt 98.9 kg (218 lb) | BMI 29.57 kg/m | BSA 2.24 m General: No acute distress. A+Ox3. HEENT: Normocephalic. Atraumatic. PERRL. EOMI. Conjunctiva and sclera clear. NECK: No carotid bruits. No JVD. Carotid upstrokes are brisk. Heart: Irregularly irregulra. S1 and S2 noted. +1/6 systolic murmur. No rubs or gallops. PMI non displaced. Lungs: Clear to auscultation. No wheezes.No rhonchi. No rales. Abdomen: Normal bowel sounds. Soft. Nontender. No masses or organomegaly. No abdominal bruits. Extremities: No edema. No clubbing or cyanosis. Pulses: radial=2/4, posterior tibial=2/4, dorsalis pedis = 2/4. NEURO: No focal deficits. PSYCH: Appropriate affect and insight. DATA Labs & Imaging Reviewed Below: Echo 09/16/2023 Qualitative LV ejection Fraction = [...] with a 3.0 x 12 mm Resolute [place], deployed at [address]. Post dilated with a 3.0 x 6 mm NC balloon. Post intervention has 0% stenosis with AMY 3 flow. * There was a 50% stenosis of mid RCA. ASSESSMENT/PLAN: 73 year old year old male 1. Hospital discharge follow-up 2. Chronic coronary artery disease 3. Ischemic cardiomyopathy -Hx ischemic cardiomyopathy. EF 25-29%. Underwent DALE x1 mid LAD 05/2021. Repeat echocardiogram on 03/06/22 shows EF improved to 50%. -Continue aspirin 81 mg daily. 4. HFrEF (heart failure with reduced ejection fraction) ([facility]) 5. Nonrheumatic aortic valve stenosis 6. Moderate aortic regurgitation -Reported he was not taking his medication correctly (once daily instead of twice). Coincidentally found to have a new depressed EF 30% with moderate aortic regurgitation and moderate aortic stenosis. Severity of aortic stenosis is underestimated. He will need a Dobutamine Stress Echo to assess theseverity of the valve. -Euvolemic on exam. Asymptomatic. -No longer on Entresto due to hypotension -[facility] pharmacy referral placed. 7. Persistent atrial fibrillation (HCC) -Will reschedule GREGOR/DCCV in the OR. Potentially will need Amiodarone. -Continue Eliquis 5 mg BID -Increase Metoprolol Succinate to 50 mg daily 8. Dyslipidemia, goal LDL below 70 -Most recent LDL 111. This was not completed fasting. Will need to repeat. -Discontinued Lipitor on his own. Currently taking Crestor 5 mg daily 9. Aortic root enlargement (HCC) 10. Ascending aorta enlargement (HCC) -Aortic root 4.4 [...] additional questions or concerns. [facility] Akshat Nielsen [address] [place] [address] I spent a total of 55 minutes on the date of service in preparation, delivery, and documentation ofthe care provided to Richard Holt excluding any time spent in the performance of separately billed services. This chart was completed in part utilizing [employer] Speech Voice Recognition Software. Grammatical errors, random [...] documented in this encounter Nursing Notes * Michelle Ramirez LPN - 10/22/2023 1:32 PM EDT Patient was identified by name and date of . Name: Richard Holt Date of : (1950). Examination Room: 2 Reason for Visit: Chief Complaint Patient presents with Hospital Follow-Up Interim Hospitalization(s): YES [facility] Interim Emergency room visit(s): NO Current symptoms: SOB Medications reviewed and are up to date via: Patient's memory Would you like to sign up for [facility]? DECLINES Patient was instructed to not get up on the exam table/exam chair until directed and assisted by their provider; patient is to remain seated in the chair/ wheelchair/ exam table/ exam chair for fall prevention and safety reasons. Patient is aware to have assistance to step down off exam table/exam chair with personnel. Patient voiced full comprehension of instructions. Michelle Ramirez LPN 1:32 PM 10/22/2023 documented in this encounter Plan of Treatment Upcoming Encounters Date Type Department Care Team (Late st Contact Info) Description 10/29/2023 Hospital Encounter OR [facility], Operating Room, [facility] - 4th Floor [address] [place] [address] Tac[address] T[place]ot, [address] [place] [phone] 10/29/2023 9:00 AM EDT Cardiac Studies Cardiology, [address] [place] [address] Glh, Nurse Cardiology [address] [place] [address] 10/29/2023 10:30 AM EDT Appointment Cardiac Studies, [address] [place] [address] 11/07/2023 9:15 AM EDT Appointment [address] Studies[address] [address] 01/16/2024 2:30 PM EDT Office [address]iology[address] CRNP [address] [place] [address] Scheduled Procedures Name Priority Associated Diagnoses Date/Ti me DC CARDIOVERSION Paroxysmal atrial fibrillation (HCC) ECHOCARDIOGRAPHY, TRANSESOPH AGEAL; INCLUDING PROBE PLACEMENT, IMAGE ACQUISITION, INTERPRETATION AND REPORT Paroxysmal atrial fibrillation (HCC) Health Maintenance Due Date Last Done Comments Depression Screening 1961 Hepatitis C Screening 1967 DTaP,Tdap,and Td Vaccines (1 - Tdap) 1968 Colonoscopy 1994 Fecal Occult Blood Test 1994 Sigmoidoscopy 1994 HbA1c 06/03/2022 06/03/2021, 05/13, 01/10/2021, Additional history exists Zoster Vaccines (2 of 2) 05/12/2023 03/17/2023 COVID-19 Vaccine (2022- season) 2023 03/17/2023, 03/12/2022, 03/16/2021, Additional history [...] this encounter Medical Devices Implanted Type Area Inspector Publications Device Identifier Shelf Expiration Date Model / Serial / Lot Stent [place] 3.0x12 Rx - [id number] Implanted:Qty: 1 on 06/05/2021 by Arvind Denney DO at [facility] [employer] : VASCULAR [id number] 11/14/2023 [id number] / / [id number] documented as of this encounter Visit Diagnoses Diagnosis Persistent atrial fibrillation (HCC)- Primary Atrial fibrillation Hospital discharge follow-up Other follow-up examination Chronic coronary artery disease Coronary atherosclerosis of unspecified type of vessel, chitimacha or graft Ischemic cardiomyopathy Other specified forms of chronic ischemic heart disease HFrEF (heart failure with reduced ejection fraction) (HCC) Nonrheumatic aortic valve stenosis Aortic valve disorders Moderate aortic regurgitation Aortic valve disorders Dyslipidemia, goal LDL below 70 Other and unspecified hyperlipidemia Aortic root enlargement (HCC) Other specified disorders of arteries and arterioles Ascending aorta enlargement (HCC) Other specified disorders of arteries and arterioles documented in this encounter Advance Directives * [...] the patient have Health Care Power of Transporter Radiology? Yes, in chart and reviewed as current [...] Advance Directives occurred with: Patient Care Teams Assistant Grocery Store Manager Relationship Specialty Start Date End Date Tg Higgins MD [address] [facility] [place] [address] PCP - General Family Medicine 03/06/17 documented as of this encounter"
--- OUTSIDE RECORDS SUMMARY | 2024-02-12 18:30 | External Medical Summary | Summary of Care ---
Author Name Unknown Organization [facility] Address [address] [place] [address] Phone [phone] Care Team Providers Care Warehouse Packer Name Role Phone Tg Higgins MD Primary Care Provider + Encounter Details Date Type Department Care Team (Late st Contact Info) Description 10/29/2023 Telephone [facility] Cardiology [address] [place] [address] Tacos Talbot, DO [address] [place] [address] Allergies Active Allergy Reactions Criticality Noted Date Comments Ceftriaxone Rash Medium 06/06/2021 documented as of this encounter (statuses as of 10/31/2023) Medications Medication Sig Dispensed Refills Start Date [...] in evening.. 30 Tablet 5 10/29/2023 Active Metoprolol Succinate ER 50 MG Oral Tablet Extended Release 24 Hour (toPROL XL) Take 1 Tablet by mouth in the morning. 90 Tablet 3 10/22/2023 10/29/2023 Discontinued documented as of this encounter (statuses as of 10/31/2023) Active Problems Problem Noted Date Diagnosed Date HFrEF (heart failure with reduced ejection fract ion) 10/11/2023 Paroxysmal atrial fibrillation 10/11/2023 Coronary artery disease invo lving [place] coronary artery of [place] heart without angina pectoris 10/11/2023 Acute systolic [...] as of this encounter (statuses as of 10/31/2023) Resolved Problems Problem Noted Date Diagnosed Date Resolved Date Near syncope 10/11/2023 10/12/2023 Left against medical advice 06/01/2021 06/02/2021 Atrial fibrillation with RVR 05/31/2021 06/04/2021 documented as of this encounter (statuses as of 10/31/2023) Immunizations Name Administration Dates Next Due COVID-19 mRNA, LNP-s, No Pre serve, 2-Dose Series ([employer]) 08/27/2020,08/05/2020 documented as of this encounter Social [...] encounter Miscellaneous Notes * Telephone Encounter - Stacy Rosario, RADHAMES - 10/31/2023 2:51 PM EDT Contacted pt, scheduled appt for 11/08/23 * Telephone Encounter - Tacos Talbot DO - 10/29/2023 12:25 PM EDT Can we schedule patient to see Karla next week in clinic for follow-up after his cardioversion. documented in this encounter Plan of Treatment Upcoming Encounters Date Type Department Care Team (Late st Contact Info) Description 11/07/2023 9:15 AM EDT Appointment Cardiac Studies, [address] [address] 11/08/2023 3:00 PM EDT Office Visit Cardiology, [address] [place] [address] CRNP [address] [place] [address] 01/16/2024 2:30 PM EDT Office Visit Cardiology, [address] [place] [address] CRNP [address] [place] [address] Health Maintenance Due Date Last Done Comments [...] this encounter Medical Devices Implanted Type Area Oxyhydrogen Welder Device Identifier Shelf Expiration Date Model / Serial / Lot Stent [place] 3.0x12 Rx - [id number] Implanted:Qty: 1 on 06/05/2021 by Arvind Denney, at [facility] [employer] : VASCULAR [id number] 11/14/2023 [id number] / / [id number] documented as of this encounter Advance Directives * Full Code (Latest Code Status on File) Date Activated Date Inactivated Comments 10/11/2023 10:01 AM 10/12/2023 2:50 PM This order reflects the patients wishes and were consensually agreed upon. Question Answer Comments Discussion of Advance Direct sarita occurred with: Patient Does the patient have a Living Will? Yes, in rosaura rt and reviewed as current Does the patient have Health Care Power of Vp Hr Diversity? Yes, in chart and reviewed as current [...] Advance Directives occurred with: Patient Care Teams Warehouse Packer Relationship Specialty Start Date End Date Tg Higgins MD [address] [facility] [place] [phone] PCP - General Family Medicine 03/06/17 documented as of this encounter
--- OUTSIDE RECORDS SUMMARY | 2024-02-12 18:31 | External Medical Summary ---
Author Name Unknown Address Unknown Organization : Laboratory Report Ordering Provider Test Date Status GABRIELLE GRANDE 10/11/2023 09:31:58 Final Observation Date Value Abnormality Reference (Units ) Status Glucose Point of Care 10/11/2023 09:31:58 102 70-120 (mg/dL) Final Performing Location
--- OUTSIDE RECORDS SUMMARY | 2024-02-12 18:31 | External Medical Summary ---
Author Name Unknown Address Unknown Organization K1F:LABORATORY [facility] - [address] [place] [address] Laboratory Report Ordering Provider Test Date Status CHRISTIAN AVILA 10/11/2023 11:08:00 Final Observation Date Value Abnormality Reference (Units ) Status WBC, Total 10/11/2023 11:08:00 6.39 4.00-10.80 (K/uL) Final RBC 10/11/2023 11:08:00 4.91 4.50-5.25 (M/uL) Final Hemoglobin 10/11/2023 11:08:00 14.6 14.0-16.8 (g/dL) Final HCT 10/11/2023 11:08:00 44.3 40.0-48.4 (%) Final MCV 10/11/2023 11:08:00 90.2 82.0-99.5 (fL) Final MCH 10/11/2023 11:08:00 29.7 27.0-34.0 (pg) Final MCHC 10/11/2023 11:08:00 33.0 32.0-36.0 (g/dL) Final RDW 10/11/2023 11:08:00 15.0 11.5-15.5 (%) Final Platelets 10/11/2023 11:08:00 184 140-400 (K/uL) Final MPV 10/11/2023 11:08:00 11.7 6.6-11.1 (fL) Final Nucleated erythrocytes/100 leukocytes [Ratio] in Blood by Automated count 10/11/2023 11:08:00 0 <=0 (/100 WBCs) Final Performing Location LABORATORY [facility] - [address] [place] [address]
--- OUTSIDE RECORDS SUMMARY | 2024-02-12 18:31 | External Medical Summary ---
Author Name Unknown Address Unknown Organization K1F:LABORATORY [facility] - [address] [place] [address] Laboratory Report Ordering Provider Test Date Status CHRISTIAN AVILA 10/11/2023 11:08:00 Final Observation Date Value Abnormality Reference (Units ) Status BUN 10/11/2023 11:08:00 22 Above high normal 6-20 (mg/dL) Final Creatinine 10/11/2023 11:08:00 1.1 0.6-1.2 (mg/dL) Final Glomerular filtration rate/1.73 sq M.predicted [Volume Rate/Area] in Serum, Plasma or Blood by Creatinine-based formula (CKD-EPI) 10/11/2023 11:08:00 73 >=60 (mL/min) Final eGFR is calculated based on the CKD-EPI 2020 equation Sodium 10/11/2023 11:08:00 140 135-146 (m mol/L) Final Potassium 10/11/2023 11:08:00 4.8 3.5-5.1 (m mol/L) Final Cl 10/11/2023 11:08:00 108 Above high normal 98 -107 (mmol/L) Final CO2 10/11/2023 11:08:00 23 22-32 (mmo l/L) Final Anion gap 10/11/2023 11:08:00 9 7-15 (mmol /L) Final Glucose 10/11/2023 11:08:00 101 70-120 (mg /dL) Final Calcium 10/11/2023 11:08:00 9.1 8.4-10.2 ( mg/dL) Final Performing Location LABORATORY [facility] - [address] [place] [address]
--- OUTSIDE RECORDS SUMMARY | 2024-02-12 18:31 | External Medical Summary | Summary of Care ---
Author Name Unknown Organization [facility] Address [address] [place] [address] Phone [phone] Care Team Providers Care Wireless Internet Installer Name Role Phone Tg Higgins MD Primary Care Provider + Reason for Visit * Reason Comments Follow Up Encounter Details Date Type Department Care Team (Late st Contact Info) Description 09/25/2023 3:00 PM EDT Office Visit Cardiology [facility] [address], [place] [id number] Adilson Castelan MD [address], [place] [id number] Aortic valve stenosis, etiology of cardiac valve disease unspecified*; Mitral valve insufficiency, unspecified etiology; Chronic coronary artery disease; HFrEF (heart failure with reduced ejection fraction) ([facility]); Ischemic cardiomyopathy; Paroxysmal atrial fibrillation (HCC); Dyslipidemia, goal LDL below 70; Ascending aorta enlargement ([facility]) Allergies Active Allergy Reactions Criticality Noted Date Comments Ceftriaxone Rash Medium 06/06/2021 documented as of this encounter (statuses as of 10/14/2023) Medications Medication Sig Dispensed Refills Start Date [...] morning and 1 Tablet before bedtime. Active Metoprolol Succinate ER 25 MG Oral Tablet Extended Release 24 Hour (toPROL XL) Take 1 Tablet by mouth in the morning. 90 Tablet 3 08/13/2023 Active Entresto 24-26 MG Oral Tablet (sacubitril-valsa rtan 24-26 mg per tab) Take 1 Tablet by mouth in the morning and 1 Tablet before bedtime. 180 Tablet 3 07/10/2022 10/12/2023 Discontinued documented as of this encounter (statuses as of 10/14/2023) Active Problems Problem Noted Date Diagnosed Date HFrEF (heart failure with reduced ejection fract ion) 10/11/2023 Paroxysmal atrial fibrillation 10/11/2023 Coronary artery disease invo lving la posta coronary artery of la posta heart without angina pectoris 10/11/2023 Acute systolic [...] as of this encounter (statuses as of 10/14/2023) Resolved Problems Problem Noted Date Diagnosed Date Resolved Date Near syncope 10/11/2023 10/12/2023 Left against medical advice 06/01/2021 06/02/2021 Atrial fibrillation with RVR 05/31/2021 06/04/2021 documented as of this encounter (statuses as of 10/14/2023) Immunizations Name Administration Dates Next Due COVID-19 [...] Sign Reading Time Taken Comments Blood Pressure 112/72 09/25/2023 2:51 PM EDT Pulse 90 09/25/2023 2:51 PM EDT Temperature - - Respiratory Rate - - Oxygen Saturation 98% 09/25/2023 2:51 PM EDT Inhaled Oxygen Concentration - - Weight 100.7 kg (222 lb) 09/25/2023 2:51 PM EDT Height 182.9 cm (6') 09/25/2023 2:51 PM EDT Body Mass Index 30.11 09/25/2023 2:51 PM EDT documented in this encounter Functional [...] No 06/01/2021 documented as of this encounter Progress Notes * Adilson Castelan MD - 09/25/2023 3:39 PM EDT I have reviewed the advanced practitioner's documentation on the date of service referenced in note, and I agree with, and take responsibility for the plan of care. 73 year old male with prior CAD and PCI to LAD. EF used to 25% --> improved to 50% -->30% Now back in Afib Dilated asc aorta 4.8 cm. GREGOR and DCCV - potentially may benefit from Amiodarone afterwards for maintenance of NSR. Would be best to characterize the degree of MR and the mechanism of MR. Dobutamine stress echo after that to determine severity of . Continue eliquis 5 mg BID. Adilson Castelan MD MPH Interventional Cardiology Pager: [phone] 09/25/23 3:47 PM * Dylan Xie, DNP - 09/25/2023 2:52 PM EDT Cardiology Outpatient Valve Clinic Note 09/25/2023 Richard Holt is a 73 year old male in clinic today for evaluation of Aortic stenosis. He is accompanied by his friend for today's visit. He was referred by: [facility] Jean-Baptiste His primary cardiology provider is: [facility] Jean-Baptiste His cardiac history is significant for (no) Diabetes Mellitus (+) Hypertension (Goal LDL < 70) Dyslipidemia (Smoker: Never) Tobacco Use- cigarettes (no) Carotid disease (no) Peripheral vascular disease (no) Renal disease (no) Family history of premature CAD (no) Stroke Coronary artery disease 06/05/2021 DALE to mLAD, RCA stenosis 50% Ischemic cardiomyopathy resolved 25-29% in 06/05/2021 improved to 50% 05/2021 Paroxysmal atrial fibrillation DCCV 06/06/2021 Dilated ascending aortic aneurysm 09/18/2023.8 cm by echo 05/[address] scan 09/16/2023 Echocardiogram Qualitative LV ejection Fraction = 30%. The left ventricular cavity size is moderately enlarged. Moderate aortic valve stenosis is present. Severity of aortic valve stenosis is underestimated low-flow low gradient aortic valve stenosis. Moderate aortic valve regurgitation is present. The proximal ascending thoracic aorta is moderately enlarged (4.8 cm). There was atrial fibrillation during the examination. Ao V2 max: 281.0 cm/sec, Ao mean P.3 mmHg, KEITH(I,D): 1.7 cm2 Interim History: He has been feeling ok Some dizziness when he is active, such as stairs Denies occurrences of chest discomfort, including chest pain, pressure, tightness or heaviness at rest or with exertion Notes some heavier breathing for a while now No lower leg swelling, orthopnea or PND No palpitations Appetite is good Sleeps well Review of Systems Review of Systems Constitutional: Negative. HENT: Positive for nosebleeds. Eyes: Negative. Respiratory: Positive for shortness of breath. Cardiovascular: See HPI Gastrointestinal: Negative. Genitourinary: Negative. Musculoskeletal: Negative. Neurological: Positive for dizziness. Psychiatric/Behavioral: Negative. BP Readings from Last 4 Encounters: 09/25/23 112/72 09/11/23 113/82 07/16/23 125/90 06/26/22 124/78 . Wt Readings from Last 4 Encounters: 09/25/23 100.7 kg (222 lb) 09/11/23 99.8 kg (220 lb) 07/16/23 96.2 kg (212 lb) 06/26/22 103.4 kg (228 lb) Current Outpatient Medications Medication Sig Dispense Refill LUMIGAN 0.01 % ophthalmic solution APPLY 1 DROP INTO BOTH EYES AT BEDTIME 5 Aspirin EC 81 MG Oral Tablet Delayed Release Take 1 Tablet by mouth in the morning. Entresto 24-26 MG Oral Tablet (sacubitril-valsartan 24-26 mg per tab) Take 1 Tablet by mouth in themorning and 1 Tablet before bedtime. 180 Tablet 3 Apixaban 5 MG Oral Tablet (Eliquis) Take [...] the morning and 1 Tablet before bedtime. Metoprolol Succinate ER 25 MG Oral Tablet Extended Release 24 Hour (toPROL XL) Take 1 Tablet by mouth in the morning. 90 Tablet 3 No current facility-administered medications for this visit. Review of patient's allergies indicates: Allergen Reactions Ceftriaxone Rash Past Medical History: Diagnosis Date Known health problems: none Past Surgical History: Procedure Laterality Date CORONARY ANGIOGRAPHY W/LEFT HEART CATH Right 06/05/2021 CORONARY ANGIOGRAPHY W/LEFT HEART CATH performed by Arvind Denney DO at [facility] G[facility] CONGENITAL INTERP - PROBE PLACEMENT N/A 06/05/2021 ECHOCARDIOGRAPHY, TRANSESOPHAGEAL, FOR CONGENITAL ANOMALIES; INCLUDING PROBE PLACEMENT, IMAGE ACQUISITION, INTERPRETATION AND REPORT performed by [facility] [place] [facility] Family History Problem Relation Age of Onset Heart disease Mother Other (old age) Father Social History Tobacco Use Smoking status: Never Smokeless tobacco: Never Vaping Use Vaping Use: Never used Substance Use Topics Alcohol use: No Drug use: No Labwork BMP results Recent Labs Units 08/05/23 1006 07/13/22 1316 12/29/21 1310 SODIUM-OUTSIDE LAB MEQ/L 141 140 140 POTASSIUM-OUTSIDE LAB MEQ/L 4.7 4.1 4.2 CHLORIDE-OUTSIDE LAB MEQ/L 108* 106 108* CO2-OUTSIDE LAB MEQ/L 26 23* 23* EGFR-OUTSIDE LAB ML/MIN/1.73 SQM 78 88 88 BUN-OUTSIDE LAB MG/DL 17 17 16 CREATININE-OUTSIDE LAB MG/DL 1.0 0.9 0.9 GLUCOSE-OUTSIDE LAB MG/DL 87 98 90 CALCIUM-OUTSIDE LAB MG/DL 9.5 9.8 9.4 Lipid panel results Recent Labs Units 08/05/23 1006 07/13/22 1316 12/29/21 1310 TRIGLYCERIDES-OUTSIDE LAB MG/DL 105 90 78 CHOLESTEROL-OUTSIDE LAB MG/DL 166 136 104 CBC results Recent Labs Units 08/05/23 1006 07/13/22 1316 12/29/21 1310 WBC 10^3/M3 6.0 5.0 5.2 HGB GR/DL 43.7 | 14.0 46.3 | 15.5 44.6 | 15.0 PLT 10^3/M3 194 153 156 HbA1c results No results for input(s): "HGBA1C" in the last 88064 hours. TSH results No results for input(s): "TSH" in the last 75627 hours. Hepatic panel results Recent Labs Units 08/05/23 1006 07/24/22 1416 07/13/22 1316 12/29/21 1310 TOTAL PROTEIN - OUTSIDE LAB G/DL 6.3 -- 7.1 6.5 PROTEIN-OUTSIDE LAB -- NEGATIVE -- -- TOTAL BILIRUBIN - OUTSIDE LAB MG/DL 0.9 -- 0.8 1.1 ALKALINE PHOSPHATASE-OUTSIDE LAB IU/L 45 -- 55 57 ALT-OUTSIDE LAB IU/L 15 -- 19 27 INR results No results for input(s): "INR" in the last 30814 hours. Invalid input(s): "PT" Physical Exam: Today's vital signs: BP 112/72 (BP Site: Left Arm, BP Position: Sitting, BP Cuff Size: Large) | Pulse 90 | Ht 1.829 m (6') | Wt 100.7 kg (222 lb) | SpO2 98% | BMI 30.11 kg/m | BSA 2.26 m BP recheck Physical Exam Constitutional: General: He is not in acute distress. Appearance: Normal appearance. He is normal weight. HENT: Nose: No congestion or rhinorrhea. Eyes: Conjunctiva/sclera: Conjunctivae normal. Neck: Vascular: No carotid bruit, hepatojugular reflux or JVD. Cardiovascular: Rate and Rhythm: Normal rate. Rhythm irregularly irregular. Pulses: Carotid pulses are 2+ on the right side and 2+ on the left side. Radial pulses are 2+ on the right side and 2+ on the left side. Dorsalis pedis pulses are 1+ on the right side and 1+ on the left side. Posterior tibial pulses are 1+ on the right side and 1+ on the left side. Heart sounds: S1 normal and S2 normal. Murmur heard. Low-pitched blowing mid to late systolic murmur is present with a grade of 1/6. No friction rub. No gallop. No S3 or S4 sounds. Pulmonary: Effort: Pulmonary effort is normal. No respiratory distress. Breath sounds: Normal breath sounds. No wheezing. Abdominal: General: Bowel sounds are normal. There is no distension. Palpations: Abdomen is soft. Tenderness: There is no abdominal tenderness. Musculoskeletal: General: No tenderness. Right lower leg: No edema. Left lower leg: No edema. Skin: General: Skin is warm and dry. Coloration: Skin is not pale. Neurological: General: No focal deficit present. Mental Status: He is alert and oriented to person, place, and time. Motor: Motor function is intact. No weakness. Gait: Gait normal. Psychiatric: Attention and Perception: Attention and perception normal. Mood and Affect: Mood and affect normal. Behavior: Behavior normal. Behavior is cooperative. Thought Content: Thought content normal. Judgment: Judgment normal. Impression and Plan: ( seen with Dr. Castelan) 1. Aortic valve stenosis, etiology of cardiac valve disease unspecified 2. Mitral valve insufficiency, unspecified etiology 3. Chronic coronary artery disease 4. HFrEF (heart failure with reduced ejection fraction) ([facility]) 5. Ischemic cardiomyopathy 6. Paroxysmal atrial fibrillation ([facility]) 7. Dyslipidemia, goal LDL below 70 8. Ascending aorta enlargement ([facility]) He presents to clinic today for evaluation of aortic stenosis noted on echocardiogram 09/16/2023. Echo shows EF declined to 30% with moderate aortic stenosis, possibly underestimated due to low flow low gradient gradient aortic valve stenosis. He also has moderate mitral regurgitation. Ascending aorta 4.8 cm. He has a history of DALE to the mLAD on 06/05/2021. EF had been down to 25-29% at that time, improvement of 50 % a few months after. EKG today shows AFib with increased rate. Has a history of paroxysmal atrial fibrillation on 06/06/2021, underwent DCC Recently stopped his apixaban for nosebleeds. Has been taking 5 mg daily. Recommend increasing to 5mg twice daily, he is agreeable. He is noting increasing exertional shortness of breath and dizziness. Does not appear to be hypervolemic. Denies chest discomfort. Plan: Plan for GREGOR and cardioversion Consider amiodarone post cardioversion He will need a DSE to understand the severity of his aortic stenosis Return for Return to be determined after further testing. I spent a total of 40-54 minutes (exact time 50 mins) on the date of service in preparation, delivery, and documentation of the care provided to Richard Holt excluding any time spent in the performance of separately billed services. Dylan Xie DNP, [facility] [place] [address] documented in this encounter Plan of Treatment Upcoming Encounters Date Type Department Care Team (Late st Contact Info) Description 10/22/2023 1:30 PM EDT Office Visit [facility], [facility] [address] [place] [address] CRNP [address] [place] [address] 11/07/2023 9:15 AM EDT Appointment Cardiac Studies, [facility] [address] [facility] [address] 01/16/2024 2:30 PM EDT Office Visit Cardiology, [facility] [address] [place] [address] CRNP [address] [place] [address] Health Maintenance Due Date Last Done Comments [...] encounter Medical Devices Implanted Type Area Laboratory Helper Device Identifier Shelf Expiration Date Model / Serial / Lot Stent [place] 3.0x12 Rx - [id number] Implanted:Qty: 1 on 06/05/2021 by Arvind Denney DO at [facility] [employer] : VASCULAR [id number] 11/14/2023 [id number] / / [id number] documented as of this encounter Visit Diagnoses Diagnosis Aortic valve stenosis, etiology of cardiac valve disease unspecified- Primary Mitral valve insufficiency, unspecified etiology Chronic coronary artery disease Coronary atherosclerosis of unspecified type of vessel, la posta or graft HFrEF (heart failure with reduced ejection fraction) (HCC) Ischemic cardiomyopathy Other specified forms of chronic ischemic heart disease Paroxysmal atrial fibrillation (HCC) Atrial fibrillation Dyslipidemia, goal LDL below 70 Other and unspecified hyperlipidemia Ascending aorta enlargement (HCC) Other specified disorders [...] the patient have Health Care Power of Braided Band Assembler? Yes, in chart and reviewed as current [...] Advance Directives occurred with: Patient Care Teams Wireless Internet Installer Relationship Specialty Start Date End Date Tg Higgins MD [address] [facility] [place] [address] PCP - General Family Medicine 03/06/17 documented as of this encounter
--- OUTSIDE RECORDS SUMMARY | 2024-02-12 18:31 | External Medical Summary | Summary of Care ---
Author Name Unknown Organization [facility] Address [address] [place] [address] Phone [phone] Care Team Providers Care Hogshead Wrecker Name Role Phone Hunter Higgins MD Primary Care Provider + Reason for Referral * Evaluate & Treat - Unlimited Visits (Within 10 days (routine)) - Pending Review Specialty Diagnoses / Procedures Referred By Hakeem wheeler Referred To Contact Cardiovascular Medicine / Cardiology Diagnoses Paroxysmal atrial fibrillation (HCC) HFrEF (heart failure with reduced ejection fraction) (HCC) Juan Zhao DO [address] [facility] [place] [address] Referral ID Status Reason Start Date Expiration Date Visits Requested Visits Authorized [id number] Pending Review Specialty Services Required 10/12/[phone] Question Answer Referral Priority Within 10 days (routine) Where should this appointment be scheduled? [facility] To which of the following clinics are you referring your patient? Arrhythmia/Electrophysiology Clinic Comments Discharge Order Reason for Visit * Auth/Cert Specialty Diagnoses / Procedures Referred By Contmarry wheeler Referred To Contact Diagnoses PAF (paroxysmal atrial fibrillation) (HCC) PAF (paroxysmal atrial fibrillation) (HCC) [I48.0] Procedures CV ECHO, GREGOR INTRAOPERATIVE HEART ELECTROCONVERSION, EXTERNAL ECHOCARDIOGRAPHY, TRANSESOPHAGEAL; INCLUDING PROBE PLACEMENT, IMAGE ACQUISITION, INTERPRETATION AND REPORT DC CARDIOVERSION Tacos Talbot DO [address] [place] [address] Or [facility] [address] [place] [address] Referral ID Status Reason Start Date Expiration Date Visits Re quested Visits Authorized [id number] Encounter Details Date Type Department Care Team (Latest Contact Info) Description 10/11/2023 8:56 AM EDT - 10/12/2023 10:50 AM EDT Hospital Encounter 3B [facility], [facility] 3rd Floor [address] [place] [address] Tacos Talbot, [address] [place] [address] Tom Buitrago MD [address] [place] [address] Juan Zhao, [address] [address] EKG Report Discharge Disposition: Home - Self Care Allergies Active Allergy Reactions Criticality Noted Date Comments Ceftriaxone Rash Medium 06/06/2021 documented as of this encounter (statuses as of 10/12/2023) Medications Medication Sig Dispensed Refills Start Date [...] the morning. 90 Tablet 3 08/13/2023 Active Crestor 5 MG Oral Tablet Take 1 Tablet by mouth in the morning. 08/12/2023 Active Entresto 24-26 MG Oral Tablet (sacubitril-valsa rtan 24-26 mg per tab) Take 1 Tablet by mouth in the morning and 1 Tablet before bedtime. 180 Tablet 3 07/10/2022 10/12/2023 Discontinued documented as of this encounter (statuses as of 10/12/2023) Active Problems Problem Noted Date Diagnosed Date HFrEF (heart failure with reduced ejection fract ion) 10/11/2023 Paroxysmal atrial fibrillation 10/11/2023 Coronary artery disease invo lving snoqualmie coronary artery of s[place]qualmie heart without angina pectoris 10/11/2023 Acute systolic [...] as of this encounter (statuses as of 10/12/2023) Resolved Problems Problem Noted Date Diagnosed Date Resolved Date Near syncope 10/11/2023 10/12/2023 Left against medical advice 06/01/2021 06/02/2021 Atrial fibrillation with RVR 05/31/2021 06/04/2021 documented as of this encounter (statuses as of 10/12/2023) Immunizations Name Administration Dates Next Due COVID-19 mRNA, LNP-s, No Pre serve, 2-Dose Series ([facility]) 08/27/2020,08/05/2020 documented as of this encounter Social [...] Sign Reading Time Taken Comments Blood Pressure 134/101 10/12/2023 7:29 AM EDT Pulse 94 10/12/2023 7:29 AM EDT Temperature 36.2 C (97.2 F) 10/12/2023 7:29 AM ED T Respiratory Rate 17 10/12/2023 7:29 AM EDT Oxygen Saturation 98% 10/12/2023 7:29 AM EDT Inhaled Oxygen Concentration - - Weight 97.4 kg (214 lb 12.8 oz) 10/12/2023 6:20 AM EDT Height 182.9 cm (6') 10/11/2023 10:31 AM EDT Body Mass Index 29.13 10/11/2023 10:31 AM EDT documented in this [...] as of this encounter Discharge Summaries * Juan Zhao DO - 10/12/2023 10:00 AM EDT [facility] [address] Admission Date: 10/11/2023 Discharge Date: 10/12/2023 RECOMMENDED TO DO FOR NEXT PROVIDER(S): Follow up with Cardiology for ongoing management of heart failure and atrial fibrillation REASON(S) FOR MEDICATION CHANGE(S): Entresto discontinued due to hypotension DISPOSITION ON DISCHARGE: home Active Hospital Problems Diagnosis HFrEF (heart failure with reduced ejection fraction) (HCC) Paroxysmal atrial fibrillation (HCC) Coronary artery disease involving snoqualmie coronary artery of snoqualmie heart without angina pectoris Mitral regurgitation Cardiomyopathy (HCC) Resolved Hospital Problems Diagnosis Date Resolved *Principal Diagnosis - Near syncope 10/12/2023 ADMISSION HISTORY & PHYSICAL EXAM (focused): Refer to history and physical for completeness. Briefly, patient presented to [facility] outpatient procedure unit to undergo GREGOR cardioversion for his atrial fibrillation. While in preparation patient was near syncopal event. His blood pressure was noted to be extremely low with a systolicblood pressure of 72. He was given phenylephrine with improvement in his blood pressure. He was seen by Cardiology who recommended holding off on cardioversion monitoring overnight. HOSPITAL COURSE (focused): Patient was monitored in the hospital. It was maintained in atrial fibrillation. Had a couple of bursts of AFib with RVR which is expected due the fact that he had not taken his metoprolol on the dayof admission. His blood pressure stabilized he had no further episodes of dizziness, near syncopal symptoms syncope or extremely low blood pressure. Limited echocardiogram was performed which showed his known valvular dysfunction and reduced ejection fraction. In the morning of discharge he was lungs are clear, heart was controlled irregular in atrial fibrillation. He had no significant edema. Hehad no lightheadedness or dizziness. He was eating well and could be discharged to outpatient follow up and coordinate with Cardiology outpatient rescheduling of his cardioversion. Due to the fact that he was quite hypotensive instructed to hold his Entresto at this time. They can determine whetherthat should be resumed when he follows up with Cardiology outpatient. Operations & Procedures: none Complications: none significant Significant Lab and Imaging Results: CBC and BMP stable Results Pending at Discharge: Lab Results Pending at Discharge: None MEDICATION UPDATES AT DISCHARGE CONTINUE taking these medications INSTRUCTIONS Apixaban 5 MG Tablet Commonly known as: Eliquis Notes to patient: Used to treat or prevent clots. Blood Thinner Take 1 Tablet by mouth in the morning and 1 Tablet before bedtime. aspirin enteric coated 81 MG [facility] Notes to patient: Assists in lowering the risk of heart attack and stroke by preventing blood clotsfrom forming Take 1 Tablet by mouth in the morning. brinZOLamide 1 % ophthalmic suspension Commonly known as: Azopt Notes to patient: Glaucoma Instill 1 Drop into the left eye daily. Cholecalciferol 125 MCG (5000 UT) Capsule Notes to patient: Used to treat or prevent vitamin D deficiency Take 1 Capsule by mouth in the morning. Crestor 5 MG Tablet Generic drug: rosuvastatin Notes to patient: Used to lower bad cholesterol, lower triglycerides, and raise good cholesterol (HDL). Used to slow the progress of heart disease and lower the chance of heart attack and stroke. Take 1 Tablet by mouth in the morning. Lumigan 0.01 % ophthalmic solution Generic drug: Bimatoprost Notes to patient: Used to treat glaucoma and lower high eye pressure APPLY 1 DROP INTO BOTH EYES AT BEDTIME Methylcobalamin 1 MG Chew Notes to patient: Used to help with some kinds of anemia and to treat or prevent low vitamin B12 Take by mouth. metoprolol succinate XL 25 MG Tb24 Commonly known as: toPROL XL Notes to patient: Used to treat high blood pressure Take 1 Tablet by mouth in the morning. Vitamin C 500 MG Tablet Commonly known as: Ascorbic Acid Notes to patient: Used to treat or prevent vitamin C deficiency and treat scurvy Take 1 Tablet by mouth in the morning and 1 Tablet before bedtime. STOP taking these medications Entresto 24-26 MG Tabs Generic drug: sacubitril-valsartan 24-26 mg per tab SCHEDULED FOLLOW-UP: Future Appointments Appt Date/Time Provider Department 11/07/2023 9:15 AM STRESS TECH [facility] Cardiac Studies, [facility] 01/16/2024 2:[address] [facility] Referral OP Other Information Indwelling Devices: LINES ALL Duration Peripheral Line Posterior;Right Wrist 20 Gauge 1 day Vital Signs (last recorded): Most Recent Systolic BP: 134 mmHg (10/12/23728) Most Recent Diastolic BP: 101 mmHg (10/12/23728) Pulse: 94 (10/12/23728) Resp: 17 (10/12/23728) Most Recent Temperature: 36.22 C (10/12/23728) Weight: 97.4 kg (214 lb 12.8 oz) (10/12/23619) SpO2: 98 % (10/12/23728) Allergies: Ceftriaxone Activity: as tolerated Diet: low sodium and fluid restricted diet 1800 mL daily Code Status: Full Code Condition on Discharge: stable Isolation status: None Cognition: normal HOSPITAL CONSULTS ORDERED: CARDIOLOGY CONSULT IP REFERRING PHYSICIAN: Ref: HUNTER HIGGINS[[id number]] [address] [facility] [place] [address] (office) [phone] (fax) PRIMARY CARE PROVIDER: PCP: Hunter Higgins MD [address] / [place] [address] (office) [phone] (fax) Note: To contact a physician responsible for this patients hospital care, please call [facility] [phone]. I spent a total of 26 minutes coordinating, documenting, and providing care for this patient excluding time spent in the performance of separately billed services. documented in this encounter Discharge Instructions * Appointments* Fely Bueno NA/UDC - 10/12/2023 9:35 AM EDT Hunter Higgins [phone] [address] [facility] Valerio Ortiz [place] Call office to schedule a 3 day follow-up appointment. Sonia Meek PA-C (Cardiology) [phone] [place] [address] 4th Floor @ [facility] [place] OFFICE WILL CALL YOU WITH AN APPOINTMENT, IF YOU DO NOT RECEIVE A CALL PLEASE CALL THEIR OFFICE. CHRISTY Montalvo 10/12/2023 9:35 AM * Discharge Instr - AVS* Juan Zhao DO - 10/12/2023 10:00 AM EDT Discharge Date: 10/12/2023 The information below provides you with the instructions and the list of medications you need to betaking following discharge from the hospital. If you have any questions, please ask before leaving. If you have questions after leaving, you can reach us at the numbers below. YOUR HOSPITAL PROVIDERS: Discharging Provider: Juan Zhao DO Provider Department: Hospital Medicine To reach this Provider Saturday through Saturday (8:00 AM to 4:30 PM) for any questions or test results: Call [phone] For after-hours concerns: Call [phone] and have your provider paged, or the provider electric distribution checker for the Department of Hospital Medicine paged. Please note, the discharging provider will not be able to provide you with any medications refills.Please discuss these with your primary care provider. Worsening Symptoms: If you have new symptoms, or your symptoms get worse, please contact your Discharge Provider or Primary Care Provider (PCP). If these providers are not available, you can go to your local [facility] or [facility] Clinic during their business hours. In an EMERGENCY situation: Call [phone] or go to the nearest emergency room. A BRIEF SUMMARY OF YOUR HOSPITAL STAY: You came to the hospital with: complaint of atrial fibrillation. Presented for GREGOR cardioversion, you were noted to be quite hypotensive and had passed out. Your main diagnosis at discharge was: You were monitored in the hospital. After your blood pressurerecovered you remained stable. You were in atrial fibrillation which was known. Other testing was stable. Operations & Procedures performed: Echocardiogram Complications: none significant Inpatient test results that are pending at discharge: none Advance Directive Documented: Advance Directive Does the Patient have an Advance Directive? No YOUR FOLLOW UP APPOINTMENTS: Primary Care Provider Information: PCP: Hunter Higgins MD [address] [place] [address] / [facility] [address] (office) [phone] (fax) An appointment was requested with your PCP (Hunter Higgins MD) within 1-2 weeks . (Please take this form to this visit with your primary care physician.) You need the following studies in the future: Follow up with Cardiology for ongoing management of your heart failure and atrial fibrillation INSTRUCTIONS: Diet: 2 gram sodium diet, fluid restrict 1800 mL daily Activity: No restrictions and As tolerated Driving: You may resume driving today . Additional Instructions: - Call your primary care physician or seek medical attention if lightheadedness dizziness or passing out. Chest pain or shortness of breath. documented in this encounter H&P Notes * Tom Buitrago MD - 10/11/2023 10:53 AM EDT HISTORY AND PHYSICAL EXAMINATION -HOSPITALIST [facility] Name:Richard Holt SEX: male AGE: [age] year old Date: 10/11/2023 Date and Time Patient was Seen: 10/11/2023 at 9:35AM PRESENTING PROBLEM: dizziness, "not feeling well" History obtained from Patient HPI: 73 y/o M patient with afib on eliqui; aortic stenosisl HTN; HFrEF (EF 35%), Ischemic cardiomyopathy, Dyslipidemia was admitted in preop for GREGOR and cardioversion. [employer]PER[employer] VICE PRESIDENT was called as patient almost passed out- pre procedure. Patient had a near syncopal episode in the PACU - where he felt like he was going to pass out. BP was checked - found to be 72/48 with HR 90. He was placed in Trendelenburg position, was given 200mcgof phenylephrine push with improvement of BP He denies any chest pain, palpitations, shortness of breath, dizziness currently. He feels better He denies any hx of fever, chills, nausea, vomiting, abdominal pain. He is asymptomatic at baseline, denies any prior spells like this He was referred by his Humane Officer, DR Castelan - see note from 09/25/2023- GREGOR, cardioversion; consider amio post cardioversion; will need a DSE to understand the severity of his aortic stenosis Case was discussed with Anaesthesia and Humane Officer , Dr Kidd- who recommends admission for observation in telemetry ; cardioversion has been cancelled. Past Medical History: Diagnosis Date Ascending aorta dilation (HCC) Coronary artery disease Dyslipidemia, goal LDL below 70 HTN (hypertension) Ischemic cardiomyopathy Paroxysmal A-fib (HCC) Past Surgical History: Procedure Laterality Date CORONARY ANGIOGRAPHY W/LEFT HEART CATH Right 06/05/2021 CORONARY ANGIOGRAPHY W/LEFT HEART CATH performed by Arvind Denney DO at [facility] INFORMATION Colonoscopy. PEDIATRIC ECHO GREGOR CONGENITAL INTERP - PROBE PLACEMENT N/A 06/05/2021 ECHOCARDIOGRAPHY, TRANSESOPHAGEAL, FOR CONGENITAL ANOMALIES; INCLUDING PROBE PLACEMENT, IMAGE ACQUISITION, INTERPRETATION AND REPORT performed by [facility] at OR [facility] Family History Problem Relation Name Age of Onset Heart disease Mother Other (old age) Father Social History Tobacco Use Smoking status: Never Smokeless tobacco: Never Vaping Use Vaping status: Never Used Substance Use Topics Alcohol use: No Drug use: No Ceftriaxone Current Facility-Administered Medications Medication Dose Route Frequency Provider Acetaminophen (Tylenol) tab 650 mg 650 mg Oral Q6H PRN Tom Buitrago MD Apixaban (Eliquis) tab 5 mg 5 mg Oral BID(AM/PM) Tom Buitrago MD aspirin enteric coated tab 81 mg 81 mg Oral Daily(AM) Tom Buitrago MD brinZOLamide (Azopt) 1 % ophthalmic suspension 1 Drop 1 Drop Left eye Daily(AM) Tom Buitrago MD melatonin tab 3 mg 3 mg Oral HS PRN Tom Buitrago MD ondansetron (Zofran) inj 4 mg 4 mg IV Push Q6H PRN Tom Buitrago MD rosuvastatin (Crestor) tab 5 mg 5 mg Oral Daily(AM) Tom Buitrago MD sodium chloride 0.9 % flush/inj 3 mL 3 mL IV Push PRN Tom Buitrago MD PHYSICAL EXAMINATION: BP: 133 mmHg/100 mmHg (10/11/23 103) Pulse: 92 (10/11/23 103) Temp: 36.22 C (10/11/231030) Temp Summary: Temp Min: 36.2 C (97.2 F) Max: 36.4 C (97.5 F) SpO2: 100 % (10/11/231030) O2 flow rate: Supplemental O2 Delivery: Room Air, None (10/11/231030) Constitutional: well nourished, well developed, no acute distress HEENT: normal: normocephalic, atraumatic; CV: irregularly irregular; systolic murmur noted in aortic area Chest: normal respiratory effort, lungs clear to auscultation and percussion Abdomen: normal: soft, bowel sounds normal, no masses, tenderness or organomegaly Extremities: no edema, no cyanosis, normal ROM, no tenderness to palpation or ROM Skin: warm, dry, intact: Neuro: alert, oriented to person, place, and time, , cranial nerves intact, reflexes normal and symmetric, sensory normal Psych: normal mood and affect, LABS: Results for orders placed or performed during the hospital encounter of 10/11/23 GLUCOSE METER, POINT OF CARE Result Value Ref Range Glucose Meter 102 70 - 120 mg/dL Radiology: ASSESSMENT AND PLAN: Active Problems: Cardiomyopathy (HCC) Mitral regurgitation Near syncope Resolved Problems: * No resolved hospital problems. * Plan: - Admit to telemetry for observation - BP improved after he received 1liter bolus in the PACU - Hold metoprolol and entresto given his soft BP - Check labs - Cardiology consult - recommended limited echo - Management discussed with Cardiology Discussed initial history of present illness/workup with emergency room physician. Medical decision makin minutes were spent in the care of this patient. More than half of my time was spent counseling the patient or family and coordinating care for the patient on the floor. This chart was completed in part utilizing [employer] Speech Voice Recognition Software. Grammatical errors, random word insertions, prounoun erros, and incomplete sentences are an occasional consequence of this system due to software limitations, ambient noise, and hardware issues. Any formal questions or concerns about the content, text, or information contained within the body of this dictation should be directly addressed to the provider for clarification. Note: To contact a physician responsible for this patients hospital care, please call [employer] [phone]. documented in this encounter Procedure Notes * Tacos Talbot DO - 10/11/2023 9:36 AM EDTAssociated Order(s): EKG REASON FOR STUDY: Notify provider if obtaining EKG;Chest pain CONCLUSIONS: Atrial fibrillation with rapid ventricular response Low voltage QRS, consider pulmonary disease, pericardial effusion, or normal variant Nonspecific T wave abnormality Abnormal ECG When compared with ECG of 25-Sep-2023 15:40, No significant change was found Ventricular Rate: 103 Atrial Rate: 441 QRS Duration: 96 QT/QTc: 352/461 ms P-R-T Hamilton: 0 : 12 : -28 degrees documented in this encounter Consult Notes * Sonia Meek PA-C - 10/11/2023 11:33 AM EDTAssociated Order(s): CARDIOLOGY CONSULT IP Cardiology Consult [facility]-[address] [place] [address] Name: Richard Holt Location: [facility] [id number] Date: 10/11/2023 Time: 11:33 AM REQUESTING SERVICE: Hospitalist REASON FOR CONSULT: afib, unresponsive episode in PACU, hypotension HPI: Richard Holt is a 73 year old with past medical history of CAD, ischemic cardiomyopathy, paroxysmal atrial fibrillation, moderate aortic stenosis, who presented to [facility] for outpatient GREGOR and cardioversion. He had IV placed, became hypotensive, diaphoretic. [employer]PER[employer] VICE PRESIDENT called pre procedure. Was givenphenylephrine and placed on oxygen with improvement of BP and symptoms. GREGOR cardioversion cancelledand he was admitted for observation. On evaluation, he states he feels back to normal. Denies chest pain, shortness of breath, lightheadedness, dizziness. Has been NPO for procedure. Has history of syncope with blood draws. Compliant with all medications at home. PAST MEDICAL HISTORY: Past Medical History: Diagnosis Date Ascending aorta dilation (HCC) Coronary artery disease Dyslipidemia, goal LDL below 70 HTN (hypertension) Ischemic cardiomyopathy Paroxysmal A-fib (HCC) PAST SURGICAL HISTORY: Past Surgical History: Procedure Laterality Date CORONARY ANGIOGRAPHY W/LEFT HEART CATH Right 06/05/2021 CORONARY ANGIOGRAPHY W/LEFT HEART CATH performed by Arvind Denney DO at [facility] INFORMATION Colonoscopy. PEDIATRIC ECHO GREGOR CONGENITAL INTERP - PROBE PLACEMENT N/A 06/05/2021 ECHOCARDIOGRAPHY, TRANSESOPHAGEAL, FOR CONGENITAL ANOMALIES; INCLUDING PROBE PLACEMENT, IMAGE ACQUISITION, INTERPRETATION AND REPORT performed by [facility] at OR [facility] FAMILY HISTORY: Family History Problem Relation Name Age of Onset Heart disease Mother Other (old age) Father SOCIAL HISTORY: Social History Tobacco Use Smoking status: Never Smokeless tobacco: Never Vaping Use Vaping status: Never Used Substance Use Topics Alcohol use: No Drug use: No ALLERGIES: Ceftriaxone ROS: See HPI for pertinent positives. All others negative other than those noted in the HPI. CONSTITUTIONAL: No change in weight, No weakness, No fatigue and No fevers, No sweats or chills. PULMONARY: No cough, sputum, or hemoptysis, No wheezing, No shortness or breath and No recent change in breathing. CARDIOVASCULAR: No chest pain, No dyspnea on exertion, No edema, No palpitations and No syncope. GASTROINTESTINAL: No abdominal pain, No change in bowel habits, No significant heartburn, No nausea, No vomiting, No diarrhea, No constipation, No blood in stools or black tarry stools. No dysphagia. HEMATOLOGIC: No abnormal bleeding and No bruising. NEUROLOGICAL: Normal balance, No headaches and No weakness. PRIOR TO ADMISSION MEDICATIONS: Prior to Admission medications Medication Sig Last Dose Discont. Crestor 5 MG Oral Tablet Take 1 Tablet by mouth in the morning. 10/10/2023 Metoprolol Succinate ER 25 MG Oral Tablet Extended Release 24 Hour (toPROL XL) Take 1 Tablet by mouth in the morning. 10/10/2023 Brinzolamide 1 % Ophthalmic Suspension (Azopt) Instill 1 Drop into the left eye daily. 10/10/2023 Cholecalciferol 125 MCG (5000 UT) Oral Capsule Take 1 Capsule by mouth in the morning. 10/10/2023 Methylcobalamin 1 MG Oral Tablet Chewable Take by mouth. 10/10/2023 Vitamin C 500 MG Oral Tablet (Ascorbic Acid) Take 1 Tablet by mouth in the morning and 1 Tablet before bedtime. 10/10/2023 Apixaban 5 MG Oral Tablet (Eliquis) Take 1 Tablet by mouth in the morning and 1 Tablet before bedtime. 10/10/2023 Entresto 24-26 MG Oral Tablet (sacubitril-valsartan 24-26 mg per tab) Take 1 Tablet by mouth in themorning and 1 Tablet before bedtime. 10/10/2023 Aspirin EC 81 MG Oral Tablet Delayed Release Take 1 Tablet by mouth in the morning. 10/10/2023 LUMIGAN 0.01 % ophthalmic solution APPLY 1 DROP INTO BOTH EYES AT BEDTIME 10/10/2023 PHYSICAL EXAMINATION: Most Recent Vital Signs: BP: 133 mmHg/100 mmHg (10/11/23 1031) Pulse: 92 (10/11/23 1031) Temp: 36.22 C (10/11/23 1031) Temp Summary: Temp Min: 36.2 C (97.2 F) Max: 36.4 C (97.5 F) SpO2: 100 % (10/11/23 1031) O2 flow rate: Supplemental O2 Delivery: Room Air, None (10/11/23 1031) Vital Signs Last 24 Hours: Systolic BP: @SBPMAXR(24)@ Temperature: Temp Av.3 C (97.4 F) Min: 36.2 C (97.2 F) Max: 36.4 C (97.5 F) Pulse: Pulse Av.5 Min: 77 Max: 92 Respirations: Resp Av Min: 16 Max: 16 SpO2: SpO2 Av % Min: 100 % Max: 100 % General: No acute distress. A+Ox3. HEENT: Normocephalic. Atraumatic. PERRL. EOMI. Conjunctiva and sclera clear. NECK: No carotid bruits. No JVD. Carotid upstrokes are brisk. Heart: RRR. S1 and S2 noted. +2/6 systolic murmur. No rubs or gallops. PMI non displaced. Lungs: Clear to auscultation. No wheezes.No rhonchi. No rales. Abdomen: Normal bowel sounds. Soft. Nontender. No masses or organomegaly. No abdominal bruits. Extremities: No edema. No clubbing or cyanosis. Pulses: radial=2/4, posterior tibial=2/4, dorsalis pedis = 2/4. NEURO: No focal deficits. PSYCH: Appropriate affect and insight. DATA: Labs & Imaging Reviewed Below: EKG 10/11/23 Afib with RVR, 103 bpm, nonspecific T wave abnormality Echo 09/16/23 Qualitative LV ejection Fraction = 30%. The left ventricular cavity size is moderately enlarged. Moderate aortic valve stenosis is present. Severity of aortic valve stenosis is underestimated low-flow low gradient aortic valve stenosis. Moderate aortic valve regurgitation is present. The proximal ascending thoracic aorta is moderately enlarged (4.8 cm). There was atrial fibrillation during the examination. Latest Reference Range & Units 10/11/23 11:08 Troponin T, High Sensitivity <=22 ng/L 17 Sodium 135 - 146 mmol/L 140 Potassium 3.5 - 5.1 mmol/L 4.8 Chloride 98 - 107 mmol/L 108 (H) CO2 22 - 32 mmol/L 23 BUN 6 - 20 mg/dL 22 (H) Creatinine 0.6 - 1.2 mg/dL 1.1 Estimated Glomerular Filtration Rate >=60 mL/min 73 Anion Gap 7 - 15 mmol/L 9 Glucose 70 - 120 mg/dL 101 Calcium 8.4 - 10.2 mg/dL 9.1 CBC Rpt WBC 4.00 - 10.80 K/uL 6.39 RBC 4.50 - 5.25 M/uL 4.91 HGB 14.0 - 16.8 g/dL 14.6 HCT 40.0 - 48.4 % 44.3 MCV 82.0 - 99.5 fL 90.2 MCH 27.0 - 34.0 pg 29.7 MCHC 32.0 - 36.0 g/dL 33.0 RDW 11.5 - 15.5 % 15.0 PLT 140 - 400 K/uL 184 MPV 6.6 - 11.1 fL 11.7 IMPRESSION: Presyncope Afib with RVR Moderate aortic stenosis CAD Ischemic cardiomyopathy PLAN: - patient presented for outpatient GREGOR and cardioversion, had episode of hypotension, lightheadedness - episode likely vagal response - feels back to baseline now - echo pending - continue to monitor on telemetry - continue aspirin, apixaban, rosuvastatin Case discussed and coordinated with Dr. Talbot. Please see Dr. Talbot notes for further recommendations. I spent a total of 35 minutes coordinating, documenting, and providing care for this patient excluding time spent in the performance of separately billed services or time spent by another provider/QHP. Sonia Meek PA-C Department of Cardiology Associated attestation - Tacos Talbot DO - 10/11/2023 12:41 PM EDT I have reviewed the advanced practitioner's documentation on the date of service referenced in note, and I agree with, and take responsibility for the plan of care. I spent a total of 45 minutes coordinating, documenting, and providing care for this patient excluding time spent in the performance of separately billed services or time spent by another provider/QHP. 73-year-old male with a past medical history of CAD (DALE to mLAD 05/2021), ischemic/tachycardia induced cardiomyopathy (LVEF 25-29% 06/05/2021 which recovered to 50% on 03/01/2022), paroxysmal atrial fibrillation (direct current cardioversion on 06/06/2021), moderate to severe mitral regurgitation, possible low-flow low gradient aortic stenosis moderately enlarged proximal ascending aorta and mildly enlarged aortic root, hyperlipidemia presented today for an outpatient transesophageal echocardiogram/cardioversion. Patient was referred to valve Clinic for evaluation of low-flow low gradient aortic stenosis along with moderate to severe mitral regurgitation with a decrease in left ventricular s ystolic function on recent echocardiogram. During his visit in the valve Clinic he was noted to be back in atrial fibrillation. Plan was to send patient for a transesophageal echocardiogram to betterassess the degree of mitral regurgitation and mechanism MR and have patient undergo with direct current cardioversion. Patient was doing well up until today when he started having significant nausea and became diaphoretic. An PLANT OPERATIONS VICE PRESIDENT was called and patient was noted to be hypotensive with systolic blood pressure of 70. Patient feeling significantly malaise. He was given phenylephrine placed on oxygenwith mild fluid bolus. Patient states that he is slowly getting back to his baseline but still having feelings of malaise and nausea. He does have a history of syncope with blood draws. This possiblymay have been a vasovagal response getting an IV but patient states that he was fine when he was getting the IV. Blood pressure slowly improving. Will have to cancel the procedure for today as patient is still not feeling well. Will monitor him on telemetry overnight and hopefully patient is feeling better in the morning will discharge him with outpatient follow-up and possibly rescheduling the procedure. documented in this encounter Nursing Notes * Omi Ochoa, THEA - 10/12/2023 10:50 AM EDT Patient discharge instructions reviewed, IV site removed and director of cardiac cath lab removed. Patient askednursing staff to call [employer]. [employer] did not answer, voicemail left for a call back. Patient states he has a friend that can pick him up after 12:00, asks if he can wait at 4th floor entrance, frustrated with inability to get a ride home. Charge nurse talked to Nursing electrician supervisor airplane, plan to allow patient to wait at ER entrance for his ride that way he is in high traffic area in case need for help arises but can still sit outside to wait if desired. Patient agreeable to this plan. [facility] nursing staff made aware of patient's name, origin within the hospital and situation. * Sherron Sullivan RN - 10/11/2023 10:30 AM EDT [address] [address] SameDay Surgery Discharge Note Name: Richard Holt Date: 10/11/2023 Time: 10:40 AM Discharge Disposition: [address] Responsible adult as escort home: na Transport Mode: Stretcher Accompanied by: staff To: [address] Belongings with patient: Yes Patient meets criteria to be transferred or discharged. * Sherron Sullivan RN - 10/11/2023 9:30 AM EDT 0930 Pt rang reporting, "I don't feel well." Pt is diaphoretic, lying flat in bed. O2 placed nasal canula 6 liters B/P 72/48, Kylah 2 99% PLANT OPERATIONS VICE PRESIDENT called, 100 mcg phenylephrine given IV 0933 B/P 84/60 Sao2 99% o2 6 liters NC 200 mcg phenylephrine given IV Pt remains in A Fib. 0936 EKG complete. B/P 98/83 O2 sat 96% Pt is feeling better, talking and answering questions appropriately. 0938 B/P 119/88 Kylah 2 100% . 0945 Procedure cancelled. Pt will be admitted for observation. * Kathrin Luna RN - 10/10/2023 12:01 PM EDT Patient identified by: name/birthdate Person taught: Patient Dion case procedure confirmed with patient/parent/guardian - no consent signed. Laterality confirmed as N/a Surgery date at time of Pre-Surgery Center Encounter: 10/11/2023. What procedure is patient having? Procedure: GREGOR/DCCV [id number] In an emergency, is patient willing to accept blood products or blood transfusion? Unknown. Do you need to place a blood bank order? No Anesthesia consent pool notified? N/A Anesthesia evaluation requested per case documentation? No Preop Evaluation Requested? No PATIENT EDUCATION SCREENING Person taught: Patient Motivation Level: Asks Questions and Eager to Learn Language Barrier: No Physical Barrier: N/A METHOD: Lecture-telephone interview Patient Preferred Learning Methods: Lecture-Telephone interview Health History interview completed, questions answered, and the following patient instructions provided via telephone interview: Preoperative bathing instructions General preoperative instructions Medication instructions NPO instructions Pt states he received pre-op instructions from Cardiology. OUTCOME: State / Describe / Explain and Needs Reinforcement * Kathrin Luna RN - 10/10/2023 9:00 AM EDT Left message on mobile phone for return call @ [phone] by Patient at least one week prior to surgery date or to leave a number where they can be reached . Instructed clinic open hours are M-F 8:00a- 4:00p. * Kathrin Luna RN - 10/08/2023 1:47 PM EDT Unable to leave message on pt's phone, will try calling back at a later date. documented in this encounter Miscellaneous Notes * Care Plan - Flaquita Costa RN - 10/12/2023 5:04 AM EDT Clinical Goal(s): Pt will remain free of injury this shift (10/11/231999) Possible barriers to meeting goal(s)/advancing plan of care: acuity of illness Stability of the patient: Moderately stable - low risk of patient condition declining or worsening Summary regarding today's goal(s): Met: Pt remained free of falls this shift Recommendations: Continue with plan of care documented in this encounter Plan of Treatment Upcoming Encounters Date Type Department Care Team (Late st Contact Info) Description 11/07/2023 9:15 AM EDT Appointment Cardiac Studies, [facility] [address] [place] [address] 01/16/2024 2:30 PM EDT Office Visit Cardiology, [place] [address] [place] [address] [facility] [address] [facility] [place] [address] Scheduled Referrals Name Type Priority Associated Diagnoses Orde r Schedule CARDIOLOGY REFERRAL OP Referral Within 10 days (routine) Paroxysmal atrial fibrillation (HCC) HFrEF (heart failure with reduced ejection fraction) (HCC) Ordered: 10/12/2023 Health Maintenance Due Date Last Done Comments [...] this encounter Medical Devices Implanted Type Area Suit Maker Device Identifier Shelf Expiration Date Model / Serial / Lot Stent Oren 3.0x12 Rx - [id number] Implanted:Qty: 1 on 06/05/2021 by Arvind Denney DO at [facility] [employer] : VASCULAR [id number] 11/14/2023 [id number] / / [id number] documented as of this encounter Procedures Procedure Name Priority Date/Time Associated Diagnosis Comments BASIC METABOLIC PANEL Routine 10/12/2023 3:24 AM EDT PHOSPHORUS Routine 10/12/2023 3:24 AM EDT CBC Routine 10/12/2023 3:24 AM EDT MAGNESIUM Routine 10/12/2023 3:24 AM EDT TROPONIN T, HIGH SENSITIVITY Routine 10/11/2023 11:32 PM EDT TROPONIN T, HIGH SENSITIVITY Routine 10/11/2023 5:46 PM EDT ECHO, TTE, LIMITED Routine 10/11/2023 11 :09 AM EDT Atrial fibrillation (HCC) TROPONIN T, HIGH SENSITIVITY Routine 10/11/2023 11:08 AM EDT BASIC METABOLIC PANEL Routine 10/11/2023 11:08 AM EDT CBC Routine 10/11/2023 11:08 AM EDT HC ECG TRACING ONLY STAT 10/11/2023 9 :36 AM EDT Chest pain GLUCOSE METER, POINT OF CARE TANJA 10/11/2023 9:31 AM EDT documented in this encounter Results * PHOSPHORUS (10/12/2023 3:24 AM EDT) Pathologist [facility] Phosphorus 3.9 2.5 - 4.8 mg/dL 10/12/2023 4:26 AM EDT LABORATORY [facility] Blood Venous blood specimen / Unknown Venipuncture / Unknown 10/12/2023 3:24 AM EDT 10/12/2023 3:52 AM EDT Tom Buitrago MD LAB BLOOD ORDERABLE S LABORATORY [address] [address] * MAGNESIUM (10/12/2023 3:24 AM EDT) Pathologist [facility] Magnesium 2.2 1.5 - 2.6 mg/dL 10/12/2023 4:26 AM EDT LABORATORY [facility] Blood Venous blood specimen / Unknown Venipuncture / Unknown 10/12/2023 3:24 AM EDT 10/12/2023 3:52 AM EDT Tom Buitrago MD LAB BLOOD ORDERABLE S LABORATORY [address] [address] * (ABNORMAL) CBC (10/12/2023 3:24 AM EDT) Pathologist [facility] WBC 5.68 4.00 - 10.80 K/uL 10/12/2023 3:58 AM EDT LABORATORY [facility] RBC 4.62 4.50 - 5.25 M/uL 10/12/2023 3:58 AM EDT LABORATORY [facility] HGB 13.9(L) 14.0 - 16.8 g/dL 10/12/2023 3:58 AM EDT LAB[facility]ATORY [facility] HCT 41.9 40.0 - 48.4 % 10/12/2023 3:58 AM EDT LAB[facility]ATORY [facility] MCV 90.7 82.0 - 99.5 fL 10/12/2023 3:58 AM EDT LABORATORY [facility] MCH 30.1 27.0 - 34.0 pg 10/12/2023 3:58 AM EDT LABORATORY [facility] MCHC 33.2 32.0 - 36.0 g/dL 10/12/2023 3:58 AM EDT LAB[facility]ATORY [facility] RDW 15.0 11.5 - 15.5 % 10/12/2023 3:58 AM EDT LAB[facility]ATORY [facility] PLT 188 140 - 400 K/uL 10/12/2023 3:58 AM EDT LAB[facility]ATORY [facility] MPV 11.9 6.6 - 11.1 fL 10/12/2023 3:58 AM EDT LABORATORY GL nRBCs 0 <=0 /100 WBCs 10/12/2023 3:58 AM EDT [facility]ORY [facility] Blood Venous blood specimen / Unknown Venipuncture / Unknown 10/12/2023 3:24 AM EDT 10/12/2023 3:52 AM EDT Tom Buitrago MD LAB BLOOD ORDERABLE S LABORATORY [facility] [address] [place] [address] * (ABNORMAL) BASIC METABOLIC PANEL (10/12/2023 3:24 AM EDT) BUN 22(H) 6 - 20 mg/dL 10/12/2023 4:26 AM EDT LABORATORY GL Creatinine 1.0 0.6 - 1.2 mg/dL 10/12/2023 4:26 AM EDT LABORATORY GL Estimated Glomerular Filtration Rate 75 >=60 mL/min 10/12/2023 4:26 AM EDT LABORATORY GL Comment:eGFR is calculated b ased on the CKD-EPI 2020 equation Sodium 138 135 - 146 mmol/L 10/12/2023 4:26 AM EDT LABORATORY [facility] Potassium 4.2 3.5 - 5.1 mmol/L 10/12/2023 4:26 AM EDT LABORATORY [facility] Chloride 108(H) 98 - 107 mmol/L 10/12/2023 4:26 AM EDT LABORATORY GL CO2 20(L) 22 - 32 mmol/L 10/12/2023 4:26 AM EDT LABORATORY GL Anion Gap 10 7 - 15 mmol/L 10/12/2023 4:26 AM EDT LABORATORY GL Glucose 85 70 - 120 mg/dL 10/12/2023 4:26 AM EDT LABORATORY GL Calcium 9.3 8.4 - 10.2 mg/dL 10/12/2023 4:26 AM EDT LABORATORY GL Blood Venous blood specimen / Unknown Venipuncture / Unknown 10/12/2023 3:24 AM EDT 10/12/2023 3:52 AM EDT Tom Buitrago MD LAB BLOOD ORDERABLE S LABORATORY [address] [id number] * TROPONIN T, HIGH SENSITIVITY (10/11/2023 11:32 PM EDT) Troponin T, High Sensitivity 14 <=22 ng/L 10/12/2023 12:11 AM EDT LAB[facility]ATORY [facility] Blood Venous blood specimen / Unknown Venipuncture / Unknown 10/11/2023 11:32 PM EDT 10/11/2023 11:46 PM EDT Tom Buitrago MD LAB BLOOD ORDERABLE S LABORATORY [address] [address] * TROPONIN T, HIGH SENSITIVITY (10/11/2023 5:46 PM EDT) Troponin T, High Sensitivity 15 <=22 ng/L 10/11/2023 6:08 PM EDT LABORATORY [facility] Blood Venous blood specimen / Unknown Venipuncture / Unknown 10/11/2023 5:46 PM EDT 10/11/2023 5:50 PM EDT Tom Buitrago MD LAB BLOOD ORDERABLE S Performing Organization Address [facility] Co de Phone Number LABORATORY [address] [phone] * ECHO, TTE, LIMITED (10/11/2023 11:09 AM EDT) Pathologist [facility] LEFT VENTRICULAR EJECTION FRACTION 30 % [facility] CARDIOLOGY 10/11/2023 10:4 1 AM EDT Tom Buitrago MD ECHOCARDIOLOGY Performing Organization Address [facility]/ZIP Co de Phone Number [facility] CARDIOLOG[facility] * TROPONIN T, HIGH SENSITIVITY (10/11/2023 11:08 AM EDT) [facility] Troponin T, High Sensitivity 17 <=22 ng/L 10/11/2023 11:31 AM EDT LABORATORY [facility] Blood Venous blood specimen / Unknown Venipuncture / Unknown 10/11/2023 11:08 AM EDT 10/11/2023 11:12 AM EDT Tom Buitrago MD LAB BLOOD ORDERABLE S Performing Organization Address [facility] Co de Phone Number LABORATORY [address] [address] * (ABNORMAL) BASIC METABOLIC PANEL (10/11/2023 11:08 AM EDT) Pathologist [facility] BUN 22(H) 6 - 20 mg/dL 10/11/2023 11:31 AM EDT LABORATORY [facility] Creatinine 1.1 0.6 - 1.2 mg/dL 10/11/2023 11:31 AM EDT LABORATORY [facility] Estimated Glomerular Filtration Rate 73 >=60 mL/min 10/11/2023 11:31 AM EDT LABORATORY [facility] Comment:eGFR is calculated b ased on the CKD-EPI 2020 equation Sodium 140 135 - 146 mmol/L 10/11/2023 11:31 AM EDT LABORATORY [facility] Potassium 4.8 3.5 - 5.1 mmol/L 10/11/2023 11:31 AM EDT LABORATORY [facility] Chloride 108(H) 98 - 107 mmol/L 10/11/2023 11:31 AM EDT LAB[facility]ATORY [facility] CO2 23 22 - 32 mmol/L 10/11/2023 11:31 AM EDT [facility]ORY [facility] Anion Gap 9 7 - 15 mmol/L 10/11/2023 11:31 AM EDT LAB[facility]ATORY [facility] Glucose 101 70 - 120 mg/dL 10/11/2023 11:31 AM EDT LAB[facility]ATORY [facility] Calcium 9.1 8.4 - 10.2 mg/dL 10/11/2023 11:31 AM EDT LAB[facility]ATORY [facility] Blood Venous blood specimen / Unknown Venipuncture / Unknown 10/11/2023 11:08 AM EDT 10/11/2023 11:12 AM EDT Tom Buitrago MD LAB BLOOD ORDERABLE S LABORATORY [address] [address] * CBC (10/11/2023 11:08 AM EDT) WBC 6.39 4.00 - 10.80 K/uL 10/11/2023 11:15 AM EDT LABORATORY [facility] RBC 4.91 4.50 - 5.25 M/uL 10/11/2023 11:15 AM EDT LABORATORY [facility] HGB 14.6 14.0 - 16.8 g/dL 10/11/2023 11:15 AM EDT LABORATORY [facility] HCT 44.3 40.0 - 48.4 % 10/11/2023 11:15 AM EDT LABORATORY [facility] MCV 90.2 82.0 - 99.5 fL 10/11/2023 11:15 AM EDT LABORATORY [facility] MCH 29.7 27.0 - 34.0 pg 10/11/2023 11:15 AM EDT LAB[facility]ATORY [facility] MCHC 33.0 32.0 - 36.0 g/dL 10/11/2023 11:15 AM EDT LABORATORY [facility] RDW 15.0 11.5 - 15.5 % 10/11/2023 11:15 AM EDT LABORATORY [facility] PLT 184 140 - 400 K/uL 10/11/2023 11:15 AM EDT LAB[facility]ATORY [facility] MPV 11.7 6.6 - 11.1 fL 10/11/2023 11:15 AM EDT LAB[facility]ATORY [facility] nRBCs 0 <=0 /100 WBCs 10/11/2023 11:15 AM EDT LAB[facility]ATORY [facility] Blood Venous blood specimen / Unknown Venipuncture / Unknown 10/11/2023 11:08 AM EDT 10/11/2023 11:12 AM EDT Tom Buitrago MD LAB BLOOD ORDERABLE S Performing Organization Address City/[facility] Co de [place] [address] * EKG (10/11/2023 9:36 AM EDT) 10/11/2023 9:36 AM EDT Narrative Procedure Note Tacos Talbot DO - 10/11/2023 9:36 AM EDT REASON FOR STUDY: Notify provider if obtaining EKG;Chest pain CONCLUSIONS: Atrial fibrillation with rapid ventricular response Low voltage QRS, consider pulmonary disease, pericardial effusion, ornormal variant Nonspecific T wave abnormality Abnormal ECG When compared with ECG of -2023 15:40, No significant change was found Ventricular Rate: 103 Atrial Rate: 441 QRS Duration: 96 QT/QTc: 352/461 ms P-R-T [place]: 0 : 12 : -28 degrees Tom Buitrago MD EKG Performing Organization Address City/[facility]/ZIP Co de Phone Number [facility] CARDIOLOGY * GLUCOSE METER, POINT OF CARE (10/11/2023 9:31 AM EDT) [facility] Signature Glucose Meter 102 70 - 120 mg/dL 10/11/2023 9:50 AM EDT [facility] Blood Whole blood specimen / Unknown 10/11/2023 9:31 AM EDT 10/11/2023 9:50 AM EDT Tacos Talbot DO LAB POINT OF CARE TE ST DOCKED DEVICE UNSOLICITED RESULTS Performing Organization Address City/[facility]/ZIP Co de Phone Number [facility] [address] [facility] [place] [address] documented in this encounter Visit Diagnoses Diagnosis Near syncope- Primary Syncope and collapse Atrial fibrillation (HCC) Atrial fibrillation Chest pain Chest pain, unspecified Paroxysmal atrial fibrillation (HCC) Atrial fibrillation HFrEF (heart failure with reduced ejection fraction) (HCC) Cardiomyopathy (HCC) Other primary cardiomyopathies Mitral regurgitation Mitral valve disorders HFrEF (heart failure with reduced ejection fraction) (HCC) Paroxysmal atrial fibrillation (HCC) Atrial fibrillation Coronary artery disease involving [place] coronary artery of [place] heart without angina pectoris documented in this encounter Administered Medications Inactive Administered Medications - up to 3 most recent administrations Medication Order MAR Action Action Date Dose Rate Site Acetaminophen (Tylenol) tab 650 mg 650 mg, Oral, Q6H PRN Pain, Mild, Fever >38C(100.5F), Starting on Sat10/11/23 at 1001, Until 10/12/23 at 1450, Maximum of 4 grams (4000 mg) per day. Apixaban (Eliquis) tab 5 mg 5 mg, Oral, BID (.AM/PM), First dose on Sat10/11/23 at 1030, Until Discontinued Given 10/12/2023 7:29 AM EDT 5 mg Given 10/11/2023 7:58 PM EDT 5 mg Given 10/11/2023 11:48 AM EDT 5 mg aspirin enteric coated tab 81 mg 81 mg, Oral, Daily(AM), First dose on Sat10/11/23 at 1030, Until Discontinued, This med should NOT be Crushed or Chewed Given 10/12/2023 7:29 AM EDT 81 mg Given 10/11/2023 11:48 AM EDT 81 mg brinZOLamide (Azopt) 1 % ophthalmic suspension 1 Drop 1 Drop, Left eye, Daily(AM), First dose on Sat10/11/23 at 1030, Until Discontinued Given 10/12/2023 7:[address] op Given 10/11/2023 11:48 AM EDT 1 Drop isolyte-S pH 7.4 infusion Intravenous, at 25 mL/hr, Plasma-LYTE 148, isolyte-S, and isolyte-S pH 7.4 are considered equivalent - including for MAR barcode scanning., CONTINUOUS, Starting on Sat10/11/23 at 1000, Until Sat10/11/23 at 1036, Pre-Op Continue from Pre-Op 10/11/2023 9:39 AM EDT 25 mL/hr New Bag 10/11/2023 9:24 AM EDT 25 mL/hr melatonin tab 3 mg 3 mg, Oral, HS PRN Insomnia, Starting on Sat10/11/23 at 1001, Until 10/12/23 at 1450 metoprolol succinate XL (toPROL XL) tab 25 mg 25 mg, Oral, Daily(AM), First dose on 10/12/23 at 0800, Until Discontinued, Hold for HR less than 60 or SBP below 100 and notify service if dose is held This med should NOT be Crushed or Chewed. Given 10/12/2023 7:29 AM EDT 25 mg ondansetron (Zofran) inj 4 mg 4 mg, IV Push, Q6H PRN Nausea, Starting on Sat10/11/23 at 1001, Until 10/12/23 at 1450 rosuvastatin (Crestor) tab 5 mg 5 mg, Oral, Daily(AM), First dose on Sat10/11/23 at 1030, Until Discontinued Given 10/12/2023 7:29 AM EDT 5 mg Given 10/11/2023 11:48 AM EDT 5 mg sodium chloride 0.9 % flush/inj 3 mL 3 mL, IV Push, PRN Other, Line Patency, Starting on Sat10/11/23 at 1000, Until 10/12/23 at 1450, Do not flush if lock, PICC, or central line not in place, IV infusing or unable to flush documented in this encounter Active and Recently Administered Medications Times are shown in EDT. Scheduled Medication Order 10/10/2023 10/11/2023 10/12/2023 Apixaban (Eliquis) tab 5 mg 5 mg, Oral, BID (.AM/PM), First dose on Sat10/11/23 at 1030, Until Discontinued 1148 (Given - Provider: Dolly Alberto, THEA)1958 (Given - Provider: Flaquita Costa, THEA) 0729 (Given - Provider: Omi Ochoa RN) aspirin enteric coated tab 81 mg 81 mg, Oral, Daily(AM), First dose on Sat10/11/23 at 1030, Until Discontinued, This med should NOT be Crushed or Chewed 1148 (Given - Provider: Dolly Alberto RN) 0729 (Given - Provider: Omi Ochoa, THEA) brinZOLamide (Azopt) 1 % ophthalmic suspension 1 Drop 1 Drop, Left eye, Daily(AM), First dose on Sat10/11/23 at 1030, Until Discontinued 1148 (Given - Provider: Dolly Alberto RN) 0733 (Given - Provider: Omi Ochoa RN) metoprolol succinate XL (toPROL XL) tab 25 mg 25 mg, Oral, Daily(AM), First dose on 10/12/23 at 0800, Until Discontinued, Hold for HR less than 60 or SBP below 100 and notify service if dose is held This med should NOT be Crushed or Chewed. 0729 (Given - Provid er: Omi Ochoa RN) rosuvastatin (Crestor) tab 5 mg 5 mg, Oral, Daily(AM), First dose on Sat10/11/23 at 1030, Until Discontinued 1148 (Given - Provider: Dolly Alberto RN) 0729 (Given - Provider: Omi Ochoa, THEA) Continuous Medication Order 10/10/2023 10/11/2023 10/12/2023 isolyte-S pH 7.4 infusion (CANCELED) Intravenous, at 25 mL/hr, Plasma-LYTE 148, isolyte-S, and isolyte-S pH 7.4 are considered equivalent - including for MAR barcode scanning., CONTINUOUS, Starting on Sat10/11/23 at 1000, Until Sat10/11/23 at 1036, Pre-Op 0924 (New Bag - Provider: Leela Sullivan RN)0939 (Continue from Pre-Op - Provider: Suleiman Dean CRNA)1035 (Stopped - Provider: Omi Ochoa, THEA) PRN Medication Order 10/10/2023 10/11/2023 10/12/2023 Acetaminophen (Tylenol) tab 650 mg 650 mg, Oral, Q6H PRN Pain, Mild, Fever >38C(100.5F), Starting on Sat10/11/23 at 1001, Until 10/12/23 at 1450, Maximum of 4 grams (4000 mg) per day. melatonin tab 3 mg 3 mg, Oral, HS PRN Insomnia, Starting on Sat10/11/23 at 1001, Until 10/12/23 at 1450 ondansetron (Zofran) inj 4 mg 4 mg, IV Push, Q6H PRN Nausea, Starting on Sat10/11/23 at 1001, Until 10/12/23 at 1450 sodium chloride 0.9 % flush/inj 3 mL 3 mL, IV Push, PRN Other, Line Patency, Starting on Sat10/11/23 at 1000, Until 10/12/23 at 1450, Do not flush if lock, PICC, or central line not in place, IV infusing or unable to flush documented in this encounter Advance Directives * [...] the patient have Health Care Power of Turf Manager? Yes, in chart and reviewed as current [...] Advance Directives occurred with: Patient Care Teams Hogshead Wrecker Relationship Specialty Start Date End Date Hunter Higgins MD [address] [place] [address] [place] [address] PCP - General Family Medicine 03/06/17 documented as of this encounter
--- OUTSIDE RECORDS SUMMARY | 2024-02-12 18:31 | External Medical Summary ---
Author Name Unknown Address Unknown Organization K1F:[facility] - [address] [address] Laboratory Report Ordering Provider Test Date Status ESDRAS AVILAJOHNY 10/11/2023 11:08:00 Final Observation Date Value Abnormality Reference (Units ) Status Troponin T 10/11/2023 11:08:00 17 <=22 (ng/ L) Final Performing Location [facility] - [address] [address]
--- OUTSIDE RECORDS SUMMARY | 2024-02-12 18:31 | External Medical Summary ---
Author Name Unknown Address Unknown Organization K1F:LAB[facility] - [address] [address] Laboratory Report Ordering Provider Test Date Status CHRISTIAN AVILA 10/12/2023 03:24:00 Final Observation Date Value Abnormality Reference (Units ) Status BUN 10/12/2023 03:24:00 22 Above high normal 6-20 (mg/dL) Final Creatinine 10/12/2023 03:24:00 1.0 0.6-1.2 (mg/dL) Final Glomerular filtration rate/1.73 sq M.predicted [Volume Rate/Area] in Serum, Plasma or Blood by Creatinine-based formula (CKD-EPI) 10/12/2023 03:24:00 75 >=60 (mL/min) Final eGFR is calculated based on the CKD-EPI 2020 equation Sodium 10/12/2023 03:24:00 138 135-146 (m mol/L) Final Potassium 10/12/2023 03:24:00 4.2 3.5-5.1 (m mol/L) Final Cl 10/12/2023 03:24:00 108 Above high normal 98 -107 (mmol/L) Final CO2 10/12/2023 03:24:00 20 Below low normal 22- 32 (mmol/L) Final Anion gap 10/12/2023 03:24:00 10 7-15 (mmol /L) Final Glucose 10/12/2023 03:24:00 85 70-120 (mg /dL) Final Calcium 10/12/2023 03:24:00 9.3 8.4-10.2 ( mg/dL) Final Performing Location [facility] - [address] [address]
--- OUTSIDE RECORDS SUMMARY | 2024-02-12 18:31 | External Medical Summary ---
Author Name Unknown Address Unknown Organization K1F:[facility] - [address] [address] Laboratory Report Ordering Provider Test Date Status CHRISTIAN AVILA 10/12/2023 03:24:00 Final Observation Date Value Abnormality Reference (Units ) Status Phosphate 10/12/2023 03:24:00 3.9 2.5-4.8 (m g/dL) Final Performing Location [facility] - [address] [address]
--- OUTSIDE RECORDS SUMMARY | 2024-02-12 18:31 | External Medical Summary | Summary of Care ---
Author Name Unknown Organization [facility] Address [address] [place] [address] Phone [phone] Care Team Providers Care Color Television Console Monitor Name Role Phone Tg Higgins MD Primary Care Provider + Reason for Visit * Reason Onset Date Comments Hospital Follow-Up 10/12/2023 Pt discharged 10/12/23 needs called with a 10 day follow-up Appointment w/ Cardiology. Office is closed at this time. Call patient at home with the appointment. Encounter Details Date Type Department Care Team ([facility] st Contact Info) Description 10/12/2023 Telephone Access Center, [place] [address] [facility] Ext *DO NOT REMOVE THIS DEPARTMENT* [place] [address] Sonia Meek PA-C [address] [place] [address] [place] [address] Hospital Follow-Up (Pt discharged 10/12/23 n... 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 angina pectoris 10/11/2023 Acute systolic [...] as of this encounter (statuses as of 10/15/2023) Resolved Problems Problem Noted Date Diagnosed Date Resolved Date Near syncope 10/11/2023 10/12/2023 Left against medical advice 06/01/2021 06/02/2021 Atrial fibrillation with RVR 05/31/2021 06/04/2021 documented as of this encounter (statuses as of 10/15/2023) Immunizations Name Administration Dates Next Due COVID-19 mRNA, LNP-s, No Pre serve, 2-Dose Series (G-volution) 08/27/2020,08/05/2020 documented as of this encounter Social [...] Miscellaneous Notes * Telephone Encounter - Stacy Rosario OSA - 10/15/2023 10:00 AM EDT Pt is scheduled for 10/22/23 * Telephone Encounter - Fley Bueno NA/UDC - 10/12/2023 10:04 AM EDT Pt discharged 10/12/23 needs called with a 10 day follow-up Appointment w/ Cardiology. Office is closed at this time. Call patient at home with the appointment. documented in this encounter Plan of Treatment Upcoming Encounters Date Type Department Care Team (Late st Contact Info) Description 10/22/2023 1:30 PM EDT Office [address] [facility] [address] 11/07/2023 9:15 AM EDT Appointment Cardiac Studies, [address] [place] [address] 01/16/2024 2:30 PM EDT Office Visit Cardiology, [address] [place] [address] [facility] [address] Health Maintenance Due Date Last Done Comments [...] this encounter Medical Devices Implanted Type Area Team Foreman Device Identifier Shelf Expiration Date Model / Serial / Lot Stent Oren 3.0x12 Rx - [id number] Implanted:Qty: 1 on 06/05/2021 by Arvind Denney DO at [facility] [employer] : VASCULAR [id number] 11/14/2023 [id number] / / [id number] documented as of this encounter Advance Directives [...] the patient have Health Care Power of Behavioral Analyst? Yes, in chart and reviewed as current [...] Advance Directives occurred with: Patient Care Teams Color Television Console Monitor Relationship Specialty Start Date End Date Tg Higgins MD [address] [facility] [place] [address] PCP - General Family Medicine 03/06/17 documented as of this encounter
--- OUTSIDE RECORDS SUMMARY | 2024-02-12 18:31 | External Medical Summary ---
Author Name Unknown Address Unknown Organization K1F:[facility] - [address] [address] Laboratory Report Ordering Provider Test Date Status CHRISTIAN AVILA 10/12/2023 03:24:00 Final Observation Date Value Abnormality Reference (Units ) Status Magnesium 10/12/2023 03:24:00 2.2 1.5-2.6 (m g/dL) Final Performing Location [facility] - [address] [address]
--- OUTSIDE RECORDS SUMMARY | 2024-02-12 18:31 | External Medical Summary | Continuity of Care Document ---
Author Name Unknown Organization [facility] Address [address] [place] [address], [place] [address] Phone [phone] Problems Active Problems Provider Date Paroxysmal atrial fibrillation [facility] Lab O nset: 06/07/2021 Mixed hyperlipidemia Stephen Agarwal MD Onset : 06/07/2021 Ischemic cardiomyopathy Onset: 0 Note: Document: 12/04/21 - C ardiology Consult Coronary arteriosclerosis Erwin Burnette DO On set: 08/12/2023 Social History Type Date Description Comments Sex Unknown Tobacco Use Reviewed: 08/12/23 Never Smoked Cigarette s Tobacco Use Reviewed: 08/12/23 Never Smoked Cigars Tobacco Use Reviewed: 08/12/23 Never Smoked A Pipe Smoking Status Reviewed: 08/12/23 Never Smoked A Pipe Smokeless Tobacco 08/12/2023 Never Used Smokeless To bacco Allergies and adverse reactions Active Allergies Criticality Reaction | Severity Comments Date Plavix Unable to assess criticality 06/12/2021 Inactive Allergies NKDA Unable to assess criticality 03/05/2017 Medications Active Medications SIG Qnty Indications Ordering Provider Date Opvogjr5pd Tablets 1 by mouth every day 90tabs E78.2 Erwin Burnette DO 08/12/2023 Vitamin C500mg Capsules takes 2 tab daily Amara Garcia MD 02/01/2023 [id number] Chewtabs takes 1 by mouth daily Amara Garcia MD 02/01/2023 Dialyvite Vitamin D [id number] (5000 Ut) Capsules Take one capsule once daily 30caps Tg Higgins MD, PhD 07/24/2022 Aspirin 81 Low Qusi63nm Chewtabs 1 tablet by mouth every day I25.10 Unknown 06/06/2021 Lxkauzu6ey Tablets 1 Tablet By Mouth In The Am And 1 Tablet Before Bedtime. 180tabs I48.0 Tg Higgins MD, PhD 06/06/2021 Metoprolol Succinate ER25mg Tablets ER 24HR 1 by mouth every day I50.21 Unknown I25.10 I48.0 Immunizations CPT Code Status Date Vaccine Lot # [id number] Given 03/17/2023 Shingrix 98543 Given 03/17/2023 Sarscov2 Vacc 3 0mcg/0.3ML [id number]-Tazfhhf-LXE Doc Only! U-FLU Given 02/01/2023 Influenza,Unspecified 370 276 11182 Given 02/01/2023 Influenza Vaccine High Do se 0.5ML Age 65 & > [id number] 19433 Given 02/01/2023 Pneumococcal Conjugate-Pr evnar 20 [id number] U-FLU Given 03/12/2022 Influenza,Unspecified 54372 Given 03/12/2022 Influenza Vaccine-Adminis tered at another facility [address] Given 03/12/2022 Pfizer Sars-Cov -2 (Covid-19) Vx, BiValent Booster, 12+ 84336 Given 03/16/2021 Pfizer Sars-Cov -2 (Cov-19) vacc 30mcg/0.3ML 12Y+ EMR Doc Only 55166 Given 08/27/2020 Pfizer Sars-Cov -2 (Cov-19) vacc 30mcg/0.3ML 12Y+ EMR Doc Only 64527 Given 08/05/2020 Pfizer Sars-Cov -2 (Cov-19) vacc 30mcg/0.3ML 12Y+ EMR Doc Only 53012 Refused 04/16/2022 Shingrix 33771 Refused 01/09/2022 Pneumococcal Conjugate-Pr evnar 20 39119 Refused 01/17/2021 Influenza Vac, Split, Preservative Free High Dose Age 65 & > 42698 Refused 01/17/2021 Shingrix 25098 Refused 01/08/2020 Shingrix 59838 Refused 01/08/2020 Tdap (Tetanus, diphtheria & acel. pertussis) Adacel or Boostrix 68520 Refused 01/08/2020 Influenza Virus Vaccine, Quadrivalent, Im Use 08518 Refused 01/08/2020 Pneumococcal Conjugate-Pr evnar 13 45015 Refused 01/02/2019 Influenza Virus Vaccine, Quadrivalent, Im Use 71562 Refused 03/14/2018 Influenza Virus Vaccine, Quadrivalent, Im Use 83459 Refused 04/26/2017 Zostavax-PT Supplied 14651 Refused 04/26/2017 Tdap (Tetanus, diphtheria & acel. pertussis) Adacel or Boostrix 19028 Refused 03/05/2017 Pneumococcal Vaccine/Pneu movax 23 23844 Refused 03/05/2017 Influenza Virus Vaccine, Quadrivalent, Im Use 91320 Refused 03/05/2017 Pneumococcal Conjugate-Pr evnar 13 Vital Signs Date Vital Result Comment 08/12/2023 1:55pm BP Systolic 102 mmHg BP Diastolic 80 mmHg Body Temperature 97.7 F Heart Rate 80 /min Respiratory Rate 20 /min Weight 224.38 lb Weight 101.776 kg 02/01/2023 1:56pm BP Systolic 120 mmHg BP Diastolic 78 mmHg Body Temperature 98.5 F Heart Rate 70 /min Respiratory Rate 16 /min Weight 226.50 lb Weight 102.740 kg Height 71.75 inches 5'11.75" BMI (Body Mass Index) 30.9 kg/m2 [place] Body Weight 172 lb Results Test Acquired Date Facility Test Result H/L Range N ote TSH With Reflex 08/05/2023 [facility]. [address] [place] [address] [phone] TSH (Reflex) 2.57 uIU/mL 0.50-6.00 Comp. Met 08/05/2023 [facility]. [address] [place], [place] [id number] [phone] Glucose 87 mg/dL 70-110 BUN 17 mg/dL 6-25 Creatinine 1.0 mg/dL 0.7-1.3 Sodium 141 mEq/L 135-145 Potassium 4.7 mEq/L 3.5-5.0 Chloride 108 mEq/L High 95-107 Co-2 26 mEq/L 24-31 Alk Phos 45 IU/L 43-122 Alt(SGPT) 15 IU/L 10-40 Ast(Sgot) 15 IU/L 3-42 T.Bilirubin 0.9 mg/dL 0.1-1.3 Calcium 9.5 mg/dL 8.5-10.6 Tot.Protein 6.3 g/dL 5.8-8.0 Albumin 4.2 g/dL 3.0-5.2 Globulin 2.1 g/dL 2.0-3.4 GFR 78 ML/MIN/1.73SQM >60 Lipid 08/05/2023 [facility]. [address] [place] [address] [phone] Cholesterol 166 mg/dL 0-200 1 Triglyceride 105 mg/dL 0-150 2 HDLD 51 mg/dL See Comment 3 Measured LDL 111 mg/dL 0-130 4 Calc VLDL 21.0 mg/dL See Comment 5 Chol/HDL 3.3 RATIO See Comment 6 Non-HDL 115 mg/dL See Comment 7 CBC W/Diff 08/05/2023 [facility]. [address] [place] [address] [phone] WBC 6.0 10^3/M3 3.1-9.2 RBC 4.66 10^6/M3 4.00-5.80 HGB 14.0 GR/DL 12.5-17.5 HCT 43.7 % 37.5-52.5 MCV 93.8 CUMICR 82.6-95.8 MCH 30.1 PICOGR 27.9-32.9 MCHC 32.1 % Low 32.6-35.4 RDW 15.6 % High 11.4-14.6 PLT 194 10^3/M3 140-350 MPV 11.1 CUMICR High 7.0-10.6 %Neut 53.6 % 40.0-75.0 %Lymph 25.3 % 17.0-45.0 %Charlton 11.8 % High 1.0-11.0 %Eos 8.4 % High 0.0-6.0 %Baso 0.9 % 0.0-2.0 #Neut 3.2 10^3/M3 1.5-8.0 #Lymph 1.5 10^3/M3 0.8-3.2 #Charlton 0.7 10^3/M3 0.0-0.8 #Eos 0.5 10^3/m3 High 0.0-0.4 #Baso 0.1 10^3/m3 0.0-0.2 Platelet Est FEW LARGE PLATEL <SEE NOTE> 8 Laboratory test finding 08/05/2023 [facility]. [address] [place], [place] [id number] [phone] VB12 >1500 pg/mL High 230-1050 9 1 CHOLESTEROL Less than 200mg/dl Low risk 201-239 mg/dl Borderline risk Equal to or greater 240mg/dl High risk 2 TRIGLYCERIDES Less than 150mg/dl Normal 150-199mg/dl Borderline 200-499mg/dl High Greater than 500mg/dl Very High 3 HDL <40mg/dl Elevated Risk 41-59mg/dl Risk >=60mg/dl Least Risk 4 LDL <100mg/dl Optimal 100-129mg/dl Near Optimal 130-159mg/dl Borderline High 160-189mg/dl High >=190 Very High 5 VLDL Less than 30mg/dl Normal 6 CHOL/HDL <4.0 Optimal 4.0-5.0 Borderline >6.0 High Risk 7 NON-HDL 30mg/dl higher than LDL Target 8 FEW LARGE PLATELETS OBSERVED ON SLIDE 9 B12 COMMENT SERUM B12 LEVELS >1500 MG/DL ARE NOT DILUTED AND REANALYZED. ELEVATED B12 LEVELS ARE NOT CONSIDERED TOXIC. Procedures Date Code Description Status 10/15/2023 1111F D/C Medications Reconciled W/Current Medications In Outpt MR Completed 08/12/2023 1101F PT SCR Future Fall Risk, No Fall Or 1 W/Out Injury Completed 08/05/2023 40445 Venipuncture Routine Complet ed Medical Devices Description No Information Available Encounters Type Date Location Provider Dx Diagnosis Office Visit 08/12/2023 2:00p [facility] Erwin Burnette DO Z00.00 Encntr for g eneral adult medical exam w/o abnormal findings I48.0 Paroxysmal atrial fi brillation E78.2 Mixed hyperlipidemia H00.11 Chalazion right uppe r eyelid I50.20 Unspecified systolic (congestive) heart failure I77.810 Thoracic aortic ecta sandy I25.10 Athscl heart disease of asa'[place] coronary artery w/o ang pctrs Assessments Date Code Description Provider 10/15/2023 I50.21 Acute systolic (congestive) heart failure Amara Garcia MD 08/12/2023 Z00.00 Encounter for ge neral adult medical examination without abnormal findings Erwin R Ohnmacht, DO 08/12/2023 I48.0 Paroxysmal atrial fibrillati on Erwin R Ohnmacht, DO 08/12/2023 E78.2 Mixed hyperlipidemia Erwin R Ohnmacht, DO 08/12/2023 H00.11 Chalazion right upper eyelid Erwin R Ohnmacht, DO 08/12/2023 I50.20 Unspecified syst olic (congestive) heart failure Erwin R Ohnmacht, DO 08/12/2023 I77.810 Thoracic aortic ectasia Erwin R Ohnmacht, DO 08/12/2023 I25.10 Atherosclerotic heart disease of [place] coronary artery without angina pectoris Erwin R Floydacht, DO 08/05/2023 I48.0 Paroxysmal atrial fibrillati on Tg Higgins MD, PhD 08/05/2023 I48.0 Paroxysmal atrial fibrillati on [facility] 08/05/2023 Z13.6 Encounter for sc reening for cardiovascular disorders Tg Higgins MD, PhD 08/05/2023 Z13.6 Encounter for sc reening for cardiovascular disorders [facility] 08/05/2023 E78.5 Hyperlipidemia, unspecified Tg Higgins MD, PhD 08/05/2023 E78.5 Hyperlipidemia, unspecified [facility] 08/05/2023 Z79.899 Other alf (current) dr galina Higgins MD, PhD 08/05/2023 Z79.899 Other buttermilk drier operator (current) dr galina rivera [facility] - [facility] Plan of Treatment Future Appointment(s):* 02/21/2024 1:30 pm - Erwin R Thierryt, DO at [facility] * 02/13/2024 1:00 pm - [facility] 08/12/2023 - Erwin Tiffanie Barrientosacht, DO* Z00.00 Encounter for general adult medical examination without abnormal findings* Comments:* Normal male adult exam. [facility] reviewed and appropriate. Medicare questions answered appropriately w/out concern. Preventative Plan given. * I48.0 Paroxysmal atrial fibrillation* Comments:* Stable. No palpitations. On Eliquis as anticoagulant. Continue current treatment plan. * Follow up:* 6 Months w/ fasting labs prior (CBC, CMP, Lipid, Vit D) * E78.2 Mixed hyperlipidemia* New Medication:* Crestor 5 mg - 1 by mouth every day * Comments:* LDL not at goal of <70. Patient was previously on Lipitor, but discontinued due to myalgias. After discussion with patient, he is agreeable to restart on a low dose statin and titrate over time ifhe tolerates it - will start Crestor 5mg with further titrations as able. Lipid panel to be repeated in 6 months. * H00.11 Chalazion right upper eyelid* Comments:* Exam consistent w/ Chalazion. Advised continued warm compresses for 5-10 minutes at a time 3-4 times a day. Advised to follow-up for persistence or visual impairment. * I50.20 Unspecified systolic (congestive) heart failure* Comments:* Stable. On Entresto and Metoprolol. Following closely w/ Cardiology. No recent exacerbations. Euvolemic on exam. Continue current treatment plan. * I77.810 Thoracic aortic ectasia* Comments:* Noted on prior Echo. Will be having repeat Echo as scheduled by Cardiology for surveillance. 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 Follows with Cardiology. No anginal symptoms. Continue current treatment plan. Functional Status Description No Information Available Mental Status Description No Information Available Referrals Description No Information Available
--- OUTSIDE RECORDS SUMMARY | 2024-02-12 18:31 | External Medical Summary ---
Author Name Unknown Address Unknown Organization K1F:LABORATORY [facility] - [address] [place] [address] Laboratory Report Ordering Provider Test Date Status CHRISTIAN AVILA 10/12/2023 03:24:00 Final Observation Date Value Abnormality Reference (Units ) Status WBC, Total 10/12/2023 03:24:00 5.68 4.00-10.80 (K/uL) Final RBC 10/12/2023 03:24:00 4.62 4.50-5.25 (M/uL) Final Hemoglobin 10/12/2023 03:24:00 13.9 Below low normal 14.0-16.8 (g/dL) Final HCT 10/12/2023 03:24:00 41.9 40.0-48.4 (%) Final MCV 10/12/2023 03:24:00 90.7 82.0-99.5 (fL) Final MCH 10/12/2023 03:24:00 30.1 27.0-34.0 (pg) Final MCHC 10/12/2023 03:24:00 33.2 32.0-36.0 (g/dL) Final RDW 10/12/2023 03:24:00 15.0 11.5-15.5 (%) Final Platelets 10/12/2023 03:24:00 188 140-400 (K/uL) Final MPV 10/12/2023 03:24:00 11.9 6.6-11.1 (fL) Final Nucleated erythrocytes/100 leukocytes [Ratio] in Blood by Automated count 10/12/2023 03:24:00 0 <=0 (/100 WBCs) Final Performing Location LABORATORY [facility] - [address] [address]
--- OUTSIDE RECORDS SUMMARY | 2024-02-12 18:31 | External Medical Summary ---
Author Name Unknown Address Unknown Organization K1F:LABORATORY [facility] - [address] [address] Laboratory Report Ordering Provider Test Date Status ESDRAS AVILAJOHNY 10/11/2023 23:32:00 Final Observation Date Value Abnormality Reference (Units ) Status Troponin T 10/11/2023 23:32:00 14 <=22 (ng/ L) Final Performing Location LABORATORY [facility] - [address] [address]
--- OUTSIDE RECORDS SUMMARY | 2024-02-12 18:31 | External Medical Summary | Summary of Care ---
Author Name Unknown Organization [facility] Address [address] [place] [address] Phone [phone] Care Team Providers Care Social Work Instructor Name Role Phone Tg Higgins MD Primary Care Provider + Reason for Visit * Auth/Cert Specialty Diagnoses / Procedures Referred By Contac t Referred To Contact Diagnoses PAF (paroxysmal atrial fibrillation) (HCC) PAF (paroxysmal atrial fibrillation) (HCC) [I48.0] Procedures CV ECHO, [facility] INTRAOPERATIVE HEART ELECTROCONVERSION, EXTERNAL ECHOCARDIOGRAPHY, TRANSESOPHAGEAL; INCLUDING PROBE PLACEMENT, IMAGE ACQUISITION, INTERPRETATION AND REPORT DC CARD[facility]ERSION Tacos Talbot DO [address] [place] [address] Or [facility] [address] [place] [address] Referral ID Status Reason Start Date Expiration Date Visits Re quested Visits Authorized [id number] Encounter Details Date Type Department Care Team (Latest Contact Info) Description 10/11/2023 10:24 AM EDT - 10/11/2023 11:59 PM EDT Hospital Encounter Cardiac Studies, [address] [address] Discharge Disposition: Home - Self Care Allergies [...] fibrillation 10/11/2023 Coronary artery disease invo lving nightmute coronary artery of nightmute heart without angina pectoris 10/11/2023 Acute systolic [...] mRNA, LNP-s, No Pre serve, 2-Dose Series ([employer]) 08/27/2020,08/05/2020 documented as of this encounter Social [...] 11/07/2023 9:15 AM EDT Appointment [address] [address] 01/16/2024 2:30 PM EDT Office Visit Cardiology, [place] [address] [place] [address] CRNP [address] [place] [address] Health Maintenance Due Date Last Done Comments [...] this encounter Medical Devices Implanted Type Area Research Environmental Scientist Device Identifier Shelf Expiration Date Model / Serial / Lot Stent Tolstoy 3.0x12 Rx - [id number] Implanted:Qty: 1 on 06/05/2021 by Arvind Denney DO at [facility]ARDI[facility] [employer] : VASCULAR [id number] 11/14/2023 [id number] / / [id number] documented as of this encounter Procedures Procedure Name Priority Date/Time Associated Diagnosis Comments ECHO, TTE, LIMITED Routine 10/11/2023 11 :09 AM EDT Atrial fibrillation (HCC) documented in this encounter Results * ECHO, TTE, LIMITED (10/11/2023 11:09 AM EDT) LEFT VENTRICULAR EJECTION FRACTION 30 % [facility] 10/11/2023 10:4 1 AM EDT Tom Buitrago MD ECHOCARDIOLOGY [facility] CARDIOLOGY documented in this encounter Advance Directives * Full Code (Latest Code Status on File) Date Activated Date Inactivated Comments 10/11/2023 10:01 AM This order re flects the patients wishes and were consensually agreed upon. Question Answer Comments Discussion of Advance Direct sarita occurred with: Patient Does the patient have a Living Will? Yes, in rosaura rt and reviewed as current Does the patient have Health Care Power of Hyperion Developer? Yes, in chart and reviewed as current [...] Advance Directives occurred with: Patient Care Teams Social Work Instructor Relationship Specialty Start Date End Date Tg Higgins MD [address] [facility] [place] [address] PCP - General Family Medicine 03/06/17 documented as of this encounter
--- OUTSIDE RECORDS SUMMARY | 2024-02-12 18:32 | External Medical Summary | Summary of Care ---
Author Name Unknown Organization [facility] Address [address] [place] [address] Phone [phone] Care Team Providers Care China Painter Name Role Phone Tg Higgins MD Primary Care Provider + Reason for Visit * Reason Comments Outpatient Testing Encounter Details Date Type Department Care Team ([facility] st Contact Info) Description 10/04/2023 1:40 PM EDT Laboratory Laboratory, [facility] [address] [place] [id number] [facility], Lab [address] [place] [address] HFrEF (heart failure with reduced ejection fraction) ([facility]) Allergies Active Allergy Reactions Criticality Noted Date Comments Ceftriaxone Rash Medium 06/06/2021 documented as of this encounter (statuses as of 10/04/2023) Medications Medication Sig Dispensed Refills Start Date End Date Status LUMIGAN 0.01 % ophthalmic solution APPLY 1 DROP INTO BOTH EYES AT BEDTIME 5 07/08/2017 Active Aspirin EC 81 MG Oral Tablet Delayed Release Take 1 Tablet by mouth in the morning. 06/26/2022 Active Entresto 24-26 MG Oral Tablet (sacubitril-valsarta n 24-26 mg per tab) Take 1 Tablet by mouth in the morning and 1 Tablet before bedtime. 180 Tablet 3 07/10/2022 Active Apixaban 5 MG Oral Tablet (Eliquis) [...] the morning. 90 Tablet 3 08/13/2023 Active documented as of this encounter (statuses as of 10/04/2023) Active Problems Problem Noted Date Diagnosed Date Acute systolic HF (heart failure) 06/02/2021 Nonrheumatic [...] as of this encounter (statuses as of 10/04/2023) Resolved Problems Problem Noted Date Diagnosed Date Resolved Date Left against medical advice 06/01/2021 06/02/2021 Atrial fibrillation with RVR 05/31/2021 06/04/2021 documented as of this encounter (statuses as of 10/04/2023) Immunizations Name Administration Dates Next Due COVID-19 mRNA, LNP-s, No Pre serve, 2-Dose Series ([employer]) 08/27/2020,08/05/2020 documented as of this encounter Social [...] No 06/01/2021 documented as of this encounter Plan of Treatment Upcoming Encounters Date Type Department Care Team (Latest Contact Info) Description 10/11/2023 10:30 AM EDT Hospital Encounter OR [facility], Operating Room, [facility] - 4th Floor [address] [place] [address] Tacos Talbot DO [address] [place] [address] 10/11/2023 10:30 AM EDT - 10/11/2023 11:30 AM EDT Surgery OR [facility], Operating Room, [facility] - 4th Floor [address] [place] [address] Tacos Talbot DO [address] [place] [address] ECHOCARDIOGRAPHY, TRANSESOPHAGEAL; INCLUDING PROBE PLACEMENT, IMAGE ACQUISITION, INTERPRETATION AND REPORT 10/11/2023 10:30 AM EDT Appointment Cardiac Studies, [address] [place] [address] 11/07/2023 9:15 AM EDT Appointment Cardiac Studies, [facility] [address] [place] [address] 01/16/2024 2:30 PM EDT Office Visit Cardiology, [place] [address] [place] [address] CRNP [address] [facility] [place] [address] Pending Results Name Type Priority Associated Diagnoses Date /Time BASIC METABOLIC PANEL Lab Routine HFrEF (heart failure with reduced ejection fraction) ([facility]) 10/04/2023 1:39 PM EDT Scheduled Procedures Name Priority Associated Diagnoses Date/Ti mt ECHOCARDIOGRAPHY, TRANSESOPHAGEAL; INCLUDING PROBE PLACEMENT, IMAGE ACQUISITION, INTERPRETATION AND REPORT PAF (paroxysmal atrial fibrillation) ([facility]) 10/11/2023 10:30 AM EDT DC CARDIOVERSION PAF (paroxysmal atrial fibrillation) ([facility]) 10/11/2023 10:30 AM EDT Health Maintenance Due Date [...] 06/22/2024 06/22/2021, 06/15/2021 Colorectal Cancer Screening 06/22/2024 Lipid Panel 08/04/2028 08/05/2023, 03/0 07/2022, 12/29/2021, Additional history exists Influenza Vaccine (FLU shot) Completed 02/01/2023 Pneumococcal [...] this encounter Medical Devices Implanted Type Area Support Coordinator Device Identifier Shelf Expiration Date Model / Serial / Lot Stent Oren 3.0x12 Rx - [id number] Implanted:Qty: 1 on 06/05/2021 by Arvind Denney DO [place] [facility] [place] [employer] [place] [id number] 11/14/2023 [id number] / / [id number] documented as of this encounter Visit Diagnoses Diagnosis HFrEF (heart failure with reduced ejection fraction) (HCC) PAF (paroxysmal atrial fibrillation) (HCC) Atrial fibrillation documented in this encounter Advance Directives * Full Code (Latest Code Status on File) Date Activated Date Inactivated Comments 06/02/2021 5:24 [...] Advance Directives occurred with: Patient Care Teams China Painter Relationship Specialty Start Date End Date Tg Higgins MD [address] [facility] [place] [address] PCP - General Family Medicine 03/06/17 documented as of this encounter
--- OUTSIDE RECORDS SUMMARY | 2024-02-12 18:32 | External Medical Summary | Summary of Care ---
Author Name Unknown Organization [facility] Address [address] [place] [address] Phone [phone] Care Team Providers Care Power Shear Operator Name Role Phone Tg Higgins MD Primary Care Provider + Encounter Details Date Type Department Care Team (Late st Contact Info) Description 09/19/2023 New Patient Triage (RECORD RETRIEVAL SPECIALIST USE ONLY) Cardiology [facility] [place] [address] [place] [address] Salena Lagunas, RN Allergies Active Allergy Reactions Criticality Noted Date Comments Ceftriaxone Rash Medium 06/06/2021 documented as of this encounter (statuses as of 09/19/2023) Medications Medication Sig Dispensed Refills Start Date End Date Status LUMIGAN 0.01 % ophthalmic solution APPLY 1 DROP INTO BOTH EYES AT BEDTIME 5 07/08/2017 Active Aspirin EC 81 MG Oral Tablet Delayed Release Take 1 Tablet by mouth in the morning. 0 06/26/2022 Active Entresto 24-26 MG Oral Tablet [...] 1 Capsule by mouth in the morning. 0 07/24/2022 Active Brinzolamide 1 % Ophthalmic Suspension (Azopt) Instill 1 Drop into the left eye daily. 0 07/16/2023 Active Methylcobalamin 1 MG Oral Tablet Chewable Take by mouth. 0 02/01/2023 Active Vitamin C 500 MG Oral Tablet (Ascorbic Acid) Take 1 Tablet by mouth in the morning and 1 Tablet before bedtime. 0 Active Metoprolol Succinate ER 25 MG Oral Tablet Extended Release 24 Hour (toPROL XL) Take 1 Tablet by mouth in the morning. 90 Tablet 3 08/13/2023 Active documented as of this encounter (statuses as of 09/19/2023) Active Problems Problem Noted Date Diagnosed Date [...] as of this encounter (statuses as of 09/19/2023) Resolved Problems Problem Noted Date Diagnosed Date Resolved Date Left against medical advice 06/01/2021 06/02/2021 Atrial fibrillation with RVR 05/31/2021 06/04/2021 documented as of this encounter (statuses as of 09/19/2023) Immunizations Name Administration Dates Next Due COVID-19 mRNA, LNP-s, No Pre serve, 2-Dose Series ([employer]) 08/27/2020,08/05/2020 documented as of this encounter Social [...] as of this encounter Progress Notes * Salena Lagunas, RN - 09/19/2023 11:48 AM EDT New Patient Triage What is the diagnosis/reason for referral?: Aortic Stenosis / Mitral Regurgitation Enter order ID here: [id number] Specialty specific documentation: Cardiology Structural Heart Please see multidisciplinary follow up note KANIKA Camejo Interventional Valve Nurse Navigator documented in this encounter Plan of Treatment Scheduled Orders Name Type Priority Associated Diagnoses Orde r Schedule EKG EKG Routine Aortic valve stenosis Mitral regurgitation Expected: 12/20/2023 (Approximate), Expires: 09/18/2024 Health Maintenance Due Date Last Done Comments Depression Screening 1962 Hepatitis C Screening 1967 DTaP,Tdap,and Td Vaccines (1 - Tdap) 1968 Colonoscopy 1994 Fecal Occult Blood Test 1994 Sigmoidoscopy 1994 HbA1c 06/03/2022 06/03/2021, 05/13, 01/10/2021, Additional history exists Zoster Vaccines (2 of 2) 05/12/2023 03/17/2023 Cologuard 06/22/2024 06/22/2021, 06/15/2021 Colorectal Cancer Screening 06/22/2024 Lipid Panel 08/04/2028 08/05/2023, 03/0 07/2022, 12/29/2021, Additional history exists Influenza Vaccine (FLU shot) Completed 02/01/2023 Pneumococcal Vaccine: 65+ Years Completed 02/01/2023 COVID-19 Vaccine Completed 03/17/2023, , 03/16/2021, Additional history exists GARDASIL-HPV IMMUNIZATION SERIES Aged Out No longer eligible based on patient's age to complete this topic Hepatitis B Aged Out No longer eligi ble based on patient's age to complete this topic MENINGOCOCCAL (MENACTRA/MENVEO) Aged Out No longer eligible based on patient's age to complete this topic documented as of this encounter Medical Devices Implanted Type Area Auto Damage Adjuster Device Identifier Shelf Expiration Date Model / Serial / Lot Stent [place] 3.0x12 Rx - [id number] Implanted:Qty: 1 on 06/05/2021 by Arvind Denney DO [place] [facility] [place] [employer] [place] [id number] 11/14/2023 [id number] / / [id number] documented as of this encounter Visit Diagnoses Diagnosis Aortic valve stenosis- Primary Aortic valve disorders Mitral regurgitation Mitral valve disorders documented in this encounter Advance Directives Latest Code Status on File Code Status Date Activated Date Inactivated Comments Full Code 06/02/2021 5:24 PM 06/06/2021 4:07 PM This order reflects the patients wishes and were consensually agreed upon. Code Status History Code Status Date Activated Date Inactivated Comments Full Code 06/01/2021 3:42 PM 06/02/2021 5:15 PM This order reflects the patients wishes and were consensually agreed upon. Question Answer Comments Discussion of Advance Directives occurred with: Patient Full Code 05/31/2021 12:54 PM 06/01/2021 12:09 PM Thi s order reflects the patients wishes and were consensually agreed upon. Question Answer Comments Discussion of Advance Directives occurred with: Patient Care Teams Power Shear Operator Relationship Specialty Start Date End Date Tg Higgins MD [address] [facility] [place] [address] PCP - General Family Medicine 03/06/17 documented as of this encounter
--- OUTSIDE RECORDS SUMMARY | 2024-02-12 18:32 | External Medical Summary | Summary of Care ---
Author Name Unknown Organization [facility] Address [address] [place] [address] Phone [phone] Care Team Providers Care Blue Line Trimmer Name Role Phone Tg Higgins MD Primary Care Provider + Encounter Details Date Type Department Care Team (Late st Contact Info) Description 09/23/2023 Documentation [facility], Cardiac Recovery Suite, [facility] [address] [place] [address] Salena Lagunas, RN Allergies Active Allergy Reactions Criticality Noted Date Comments Ceftriaxone Rash Medium 06/06/2021 documented as of this encounter (statuses as of 09/23/2023) Medications Medication Sig Dispensed Refills Start Date [...] as of this encounter (statuses as of 09/23/2023) Active Problems Problem Noted Date Diagnosed Date [...] as of this encounter (statuses as of 09/23/2023) Resolved Problems Problem Noted Date Diagnosed Date Resolved Date Left against medical advice 06/01/2021 06/02/2021 Atrial fibrillation with RVR 05/31/2021 06/04/2021 documented as of this encounter (statuses as of 09/23/2023) Immunizations Name Administration Dates Next Due COVID-19 mRNA, LNP-s, No Pre serve, 2-Dose Series ([employer]) 08/27/2020,08/05/2020 documented as of this encounter Social [...] Progress Notes * Salena Lagunas, RN - 09/23/2023 11:18 AM EDT Images from the original note were not included. Risk Factors: Severe , Mod AI, HFrEF (30%), Hx CAD -PCI mLAD (06/03), pAfib on OAC, mod enlarged prox Ascending Aorta, enlarged Aortic Root, HTN KANIKA Camejo Interventional Valve Nurse Navigator documented in this encounter Plan of Treatment Upcoming Encounters Date Type Department Care Team (Late st Contact Info) Description 09/25/2023 3:00 PM EDT Office Visit Cardiology [facility] [address] [place] [address] Adilson Castelan MD [address] [place] [address] Health Maintenance Due Date Last Done Comments Depression Screening 1961 Hepatitis C Screening 1967 DTaP,Tdap,and Td Vaccines (1 - Tdap) 1968 Colonoscopy 1994 Fecal Occult Blood Test 1994 Sigmoidoscopy 1994 HbA1c 06/03/2022 06/03/2021, 05/13, 01/10/2021, Additional history exists Zoster Vaccines (2 of 2) 05/12/2023 03/17/2023 Cologuard 06/22/2024 06/22/2021, 06/15/2021 Colorectal Cancer Screening 06/22/2024 Lipid Panel 08/04/2028 08/05/2023, 07/2022, 12/29/2021, Additional history exists Influenza Vaccine [...] this encounter Medical Devices Implanted Type Area Sfdc Consultant Device Identifier Shelf Expiration Date Model / Serial / Lot Stent [place] 3.0x12 Rx - [id number] Implanted:Qty: 1 on 06/05/2021 by Arvind Denney DO at [facility] [place] [employer] [place]ULAR [id number] 11/14/2023 [id number] X / / [id number] documented as of this encounter Advance Directives Latest Code Status [...] Advance Directives occurred with: Patient Care Teams Blue Line Trimmer Relationship Specialty Start Date End Date Tg Higgins MD [address] [facility] [place] [address] PCP - General Family Medicine 03/06/17 documented as of this encounter
--- OUTSIDE RECORDS SUMMARY | 2024-02-12 18:32 | External Medical Summary | Summary of Care ---
Author Name Unknown Organization [facility] [address] [place] [address] Phone [phone] Care Team Providers Care Family Services Manager Name Role Phone Tg Higgins MD Primary Care Provider + Reason for Visit * Reason Onset Date Comments Appointment 09/27/2023 Encounter Details Date Type Department Care Team ([facility] st Contact Info) Description 09/27/2023 Telephone Radiology, [facility] [address] [place], [place] [id number] Requisition, External Radiology [address] [place] [address] Appointment Allergies Active Allergy Reactions Criticality Noted Date Comments Ceftriaxone Rash Medium 06/06/2021 documented as of this encounter (statuses as of 09/27/2023) Medications Medication Sig Dispensed Refills Start Date [...] as of this encounter (statuses as of 09/27/2023) Active Problems Problem Noted Date Diagnosed Date [...] as of this encounter (statuses as of 09/27/2023) Resolved Problems Problem Noted Date Diagnosed Date Resolved Date Left against medical advice 06/01/2021 06/02/2021 Atrial fibrillation with RVR 05/31/2021 06/04/2021 documented as of this encounter (statuses as of 09/27/2023) Immunizations Name Administration Dates Next Due COVID-19 mRNA, LNP-s, No Pre serve, 2-Dose Series ([employer]) 08/27/2020,08/05/2020 documented as of this encounter Social [...] encounter Miscellaneous Notes * Telephone Encounter - Mona Farooq OSA - 09/27/2023 10:47 AM EDT Patient has an order for a GREGOR. Please advise documented in this encounter Plan of Treatment Upcoming Encounters Date Type Department Care Team (Late st Contact Info) Description 10/04/2023 9:15 AM EDT Appointment Cardiac Studies, [address] [address] Health Maintenance Due Date Last Done Comments [...] this encounter Medical Devices Implanted Type Area Custom Harvester Device Identifier Shelf Expiration Date Model / Serial / Lot Stent Oren 3.0x12 Rx - [id number] Implanted:Qty: 1 on 06/05/2021 by Arvind Denney DO [place] [facility] [place] [employer] [place] [id number] 11/14/2023 [id number] X / / [id number] documented as of this encounter Advance Directives [...] Advance Directives occurred with: Patient Care Teams Family Services Manager Relationship Specialty Start Date End Date Tg Higgins MD [address] [facility] [place] [address] PCP - General Family Medicine 03/06/17 documented as of this encounter
--- OUTSIDE RECORDS SUMMARY | 2024-02-12 18:32 | External Medical Summary | Summary of Care ---
Author Name Unknown Organization [facility] Address [address] [place] [address] Phone [phone] Care Team Providers Care Hand Slitter Name Role Phone Tg Higgins MD Primary Care Provider + Reason for Referral * Precert (Within 10 days (routine)) - Authorized Specialty Diagnoses / Procedures Referred By Contac t Referred To Contact Cardiac Studies Diagnoses Paroxysmal atrial fibrillation (HCC) HFrEF (heart failure with reduced ejection fraction) (HCC) Nonrheumatic aortic valve stenosis Procedures ECHO, STRESS (DOBUTAMINE) W/ PHYSICIAN Karla Lane CRNP [address] [place] [address] Referral ID Status Reason Start Date Expiration Date V isits Requested Visits Authorized [id number] Authorized Precert 09/26/2023 11/26/2023 999 999 * Precert (Within 10 days (routine)) - Pending Review Specialty Diagnoses / Procedures Referred By Contac t Referred To Contact Cardiac Studies Diagnoses Paroxysmal atrial fibrillation (HCC) Procedures TRANSESOPHAGEAL ECHO (COMPLETE) Karla Lane CRNP [address] [place] [address] Referral ID Status Reason Start Date Expiration Date Visits Requested Visits Authorized [id number] Pending Review Precert 09/26/2023 999 999 Reason for Visit * Reason Onset Date Comments Procedure 09/26/2023 JOSEPH/DCCV Encounter Details Date Type Department Care Team (Late st Contact Info) Description 09/26/2023 Telephone Cardiology, [place] [address] [place] [address] CRNP [address] [place] [address] Procedure (JOSEPH/DCCV) Allergies Active Allergy Reactions Criticality Noted Date Comments Ceftriaxone Rash Medium 06/06/2021 documented as of this encounter (statuses as of 09/30/2023) Medications Medication Sig Dispensed Refills Start Date [...] as of this encounter (statuses as of 09/30/2023) Active Problems Problem Noted Date Diagnosed Date [...] as of this encounter (statuses as of 09/30/2023) Resolved Problems Problem Noted Date Diagnosed Date Resolved Date Left against medical advice 06/01/2021 06/02/2021 Atrial fibrillation with RVR 05/31/2021 06/04/2021 documented as of this encounter (statuses as of 09/30/2023) Immunizations Name Administration Dates Next Due COVID-19 mRNA, LNP-s, No Pre serve, 2-Dose Series ([employer]) 08/27/2020,08/05/2020 documented as of this encounter Social [...] Telephone Encounter - Stacy Rosario OSA - 09/30/2023 2:14 PM EDT Scheduled dobut stress test for 11/06. Attempted to reach pt, no answer no VM * Telephone Encounter - Michelle Ramirez LPN - 09/30/2023 12:57 PM EDT Pt advised and aware of instructions. Please reschedule the stress end of October or early November. * Telephone Encounter - Michelle Ramirez LPN - 09/30/2023 11:45 AM EDT PATIENT NAME: Richard Holt : 1950 JOSEPH(Transesophageal Echocardiogram) / Electrical Cardioversion Instructions Procedure Date: 10/11/2023 Location: [facility]- [place] Additional labs or testing needed: Non-fasting lab work a few days prior. EKG about 30 minutes before the procedure in the cardiology office Nothing to eat or drink after midnight. No tobacco products after midnight DO NOT take your medications the morning of the procedure except for Eliquis (anticoagulant/blood thinner) Any dentures will need to be removed before procedure. Arrive at [facility] at 9.30 am at the registration desk on the fourth floor. After the procedure you will be kept for a few hours for observation, then discharged home. You will not be permitted to drive yourself home from the procedure as you will be given a form of anesthesia prior/during the procedure. Call the office at [phone] with any questions or concerns. * Telephone Encounter - Michelle Ramirez LPN - 09/30/2023 9:06 AM EDT It appears that the stress echo was scheduled incorrectly for this Tuesday 10/03. This will need to be canceled. I have reached out to CP and OR. They are trying to find slots, will get back to me. * Telephone Encounter - Karla Lane CRNP - 09/26/2023 1:45 PM EDT Called and discussed JOSEPH + cardioversion with patient today. Patient is agreeable. He understands he must take Eliquis twice daily for stroke prophylaxis. He states that "he was straightened out yesterday." He is already started taking his medications as prescribed. We also discussed the possibility of adding amiodarone to keep in normal sinus rhythm. Case reviewed with Dr. Talbot. Please schedule JOSEPH cardioversion for his next hospital week 10/06-10/10. This will need to be in the OR. Plan for Dobutamine Stress Echo to assess for low-flow severe aortic stenosis in the future. This can be done 1 month after JOSEPH/DCCV Thanks, [facility] Jean-Baptiste * Telephone Encounter - Karla Lane CRNP - 09/26/2023 1:45 PM EDT ----- Message from Dylan Xie DNP sent at 09/25/2023 3:46 PM EDT ----- Regarding: Joseph/DCCV Karla Can you arrange a JOSEPH/DCCV with Dr Talbot for Mr Holt He is back in atrial fibrillation. He may need amiodarone after He will need a DSE after he is back in rhythm Alex documented in this encounter Plan of Treatment Upcoming Encounters Date Type Department Care Team (Latest Contact Info) Description 10/11/2023 10:30 AM EDT Hospital Encounter OR [facility], Operating Room, [facility] - 4th Floor [address] [facility], [place] [address] Tacos Talbot, [address] [facility] [place] [address] 10/11/2023 10:30 AM EDT - 10/11/2023 11:30 AM EDT Surgery OR [facility], Operating Room, [facility] - 4th Floor [address] [facility] [address] Tacos Talbot, [address] [facility], [place] [address] ECHOCARDIOGRAPHY, TRANSESOPHAGEAL; INCLUDING PROBE PLACEMENT, IMAGE ACQUISITION, INTERPRETATION AND REPORT 10/11/2023 10:30 AM EDT Appointment Cardiac Studies, [address] [address] 11/07/2023 9:15 AM EDT Appointment Cardiac Studies, [address] [place] [address] 01/16/2024 2:30 PM EDT Office Visit Cardiology, [address] CRNP [address] [place] [address] Scheduled Orders Name Type Priority Associated Diagnoses Orde r Schedule TRANSESOPHAGEAL ECHO (COMPLETE) Echocardiology Routine Paroxysmal atrial fibrillation (HCC) Expected: 09/26/2023, Expires: 10/26/2024 ECHO, STRESS (DOBUTAMINE) W/ PHYSICIAN Echocardiology Routine Paroxysmal atrial fibrillation (HCC) HFrEF (heart failure with reduced ejection fraction) ([facility]) Nonrheumatic aortic valve stenosis Expected: 09/26/2023, Expires: 03/28/2024 Scheduled Procedures Name Priority Associated Diagnoses Date/Ti me ECHOCARDIOGRAPHY, TRANSESOPHAGEAL; INCLUDING PROBE PLACEMENT, IMAGE ACQUISITION, INTERPRETATION AND REPORT PAF (paroxysmal atrial fibrillation) (HCC) 10/11/2023 10:30 AM EDT DC CARDIOVERSION PAF (paroxysmal atrial fibrillation) (HCC) 10/11/2023 10:30 AM EDT Health Maintenance Due [...] this encounter Medical Devices Implanted Type Area Side Door Worker Device Identifier Shelf Expiration Date Model / Serial / Lot Stent [place] 3.0x12 Rx - [id number] Implanted:Qty: 1 on 06/05/2021 by Arvind Denney DO at [facility] [place] [employer] : VASCULAR [id number] 11/14/2023 [id number] / / [id number] documented as of this encounter Visit Diagnoses Diagnosis Paroxysmal atrial fibrillation (HCC)- Primary Atrial fibrillation HFrEF (heart failure with reduced ejection fraction) (HCC) Nonrheumatic aortic valve stenosis Aortic valve disorders PAF (paroxysmal atrial fibrillation) (HCC) Atrial fibrillation [...] Advance Directives occurred with: Patient Care Teams Hand Slitter Relationship Specialty Start Date End Date Tg Higgins MD [address] [facility] [place] [address] PCP - General Family Medicine 03/06/17 documented as of this encounter
--- OUTSIDE RECORDS SUMMARY | 2024-02-12 18:32 | External Medical Summary | Summary of Care ---
Author Name Unknown Organization [facility] Address [address] [place] [address] Phone [phone] Care Team Providers Care Supply Tech Name Role Phone Tg Higgins MD Primary Care Provider + Encounter Details Date Type Department Care Team (Late st Contact Info) Description 09/19/2023 New Patient Triage (FACILITY REHAB DIRECTOR USE ONLY) Cardiology [facility] [place] [address] [place] [address] Salena Lagunas, RN Allergies Active [...] mRNA, LNP-s, No Pre serve, 2-Dose Series ([email or web address]) 08/27/2020,08/05/2020 documented as of this encounter Social [...] / Mitral Regurgitation Enter order ID here: [id number] Specialty specific documentation: Cardiology Structural Heart Please [...] this encounter Medical Devices Implanted Type Area Health Informatics Instructor Device Identifier Shelf Expiration Date Model / Serial / Lot Stent [place] 3.0x12 Rx - [id number] Implanted:Qty: 1 on 06/05/2021 by Arvind Denney DO at [facility] [place] [employer] : VASCULAR [id number] 11/14/2023 [id number] X / / [id number] documented as of this encounter Visit Diagnoses [...] Advance Directives occurred with: Patient Care Teams Supply Tech Relationship Specialty Start Date End Date Tg Higgins MD [address] [facility] [place] [address] PCP - General Family Medicine 03/06/17 documented as of this encounter
--- OUTSIDE RECORDS SUMMARY | 2024-02-12 18:32 | External Medical Summary | Summary of Care ---
Author Name Unknown Organization [facility] Address [address] [place] [address] Phone [phone] Care Team Providers Care Registered Nurse Cardiac Name Role Phone Tg Higgins MD Primary Care Provider + Encounter Details Date Type Department Care Team (Late st Contact Info) Description 09/19/2023 New Patient Triage (REFERRAL AND INFORMATION AIDE USE ONLY) Cardiology [facility] [place] [address] [place] [address] Salena Lagunas, RN Allergies Active [...] mRNA, LNP-s, No Pre serve, 2-Dose Series ([employer]) 08/27/2020,08/05/2020 documented as of this encounter Social [...] as of this encounter Progress Notes * Zayra Patricia OSA - 09/19/2023 5:27 PM EDT This is a 24hr stat valve clinic referral. Are we just scheduling next available? * Salena Lagunas RN - 09/19/2023 11:48 AM EDT New Patient Triage What is the diagnosis/reason for referral?: Aortic Stenosis / Mitral Regurgitation Enter order ID here: [id number] Specialty specific documentation: Cardiology Structural Heart Please [...] this encounter Medical Devices Implanted Type Area Hse Coordinator Device Identifier Shelf Expiration Date Model / Serial / Lot Stent Oren 3.0x12 Rx - [id number] Implanted:Qty: 1 on 06/05/2021 by Arvind Denney DO at [facility] [place] [employer] : VASCULAR [id number] 11/14/2023 [id number] X / / [id number] documented as of this encounter Visit Diagnoses [...] Advance Directives occurred with: Patient Care Teams Registered Nurse Cardiac Relationship Specialty Start Date End Date Tg Higgins MD [address] [facility] [place] [address] PCP - General Family Medicine 03/06/17 documented as of this encounter
--- OUTSIDE RECORDS SUMMARY | 2024-02-12 18:32 | External Medical Summary | Summary of Care ---
Author Name Unknown Organization [facility] Address [address] [place] [address] Phone [phone] Care Team Providers Care Marine Painter Name Role Phone Tg Higgins MD Primary Care Provider + Reason for Visit * Reason Onset Date Comments Abnormal Test Results 09/19/2023 Echo Encounter Details Date Type Department Care Team ([facility] Contact Info) Description 09/19/2023 Telephone Cardiology, [place] [address] [place] [address] CRNP [address] [place] [address] Abnormal Test Results (Echo) Allergies Active Allergy Reactions Criticality Noted Date Comments Ceftriaxone Rash Medium 06/06/2021 documented as of this encounter (statuses as of 10/01/2023) Medications Medication Sig Dispensed Refills Start Date [...] as of this encounter (statuses as of 10/01/2023) Active Problems Problem Noted Date Diagnosed Date [...] as of this encounter (statuses as of 10/01/2023) Resolved Problems Problem Noted Date Diagnosed Date Resolved Date Left against medical advice 06/01/2021 06/02/2021 Atrial fibrillation with RVR 05/31/2021 06/04/2021 documented as of this encounter (statuses as of 10/01/2023) Immunizations Name Administration Dates Next Due COVID-19 mRNA, LNP-s, No Pre serve, 2-Dose Series ([employer]) 08/27/2020,08/05/2020 documented as of this encounter Social [...] encounter Miscellaneous Notes * Telephone Encounter - Veronica Dubon NRCMA - 09/19/2023 10:00 AM EDT Pt notified that Valve Clinic schedulers will be contacting him with appt. States understanding. ELIZABETH Mann * Telephone Encounter - Veronica Dubon NRCMA - 09/19/2023 9:59 AM EDT ----- Message from AURORA Jean-Baptiste sent at 09/18/2023 1:17 PM EDT ----- EF is down with aortic stenosis. Needs scheduled with valve clinic STAT documented in this encounter Plan of Treatment Upcoming Encounters Date Type Department Care Team (Latest Contact Info) Description 10/11/2023 10:30 AM EDT Hospital Encounter OR [facility], Operating Room, [facility] - 4th Floor [address] [place] [address] [place] [address] Tacos Talbot DO [address] [facility] [address] 10/11/2023 10:30 AM EDT - 10/11/2023 11:30 AM EDT Surgery OR [facility], Operating Room, [facility] - 4th Floor [address] [facility] [place] [address] Tacos Talbot DO [address] [facility] [place] [address] ECHOCARDIOGRAPHY, TRANSESOPHAGEAL; INCLUDING PROBE PLACEMENT, IMAGE ACQUISITION, INTERPRETATION AND REPORT 10/11/2023 10:30 AM EDT Appointment Cardiac Studies, [address] [place] [address] 11/07/2023 9:15 AM EDT Appointment Cardiac Studies, [address] [address] 01/16/2024 2:30 PM EDT Office Visit Cardiology, [address] CRNP [address] [place] [address] [place] [address] Scheduled Procedures Name Priority Associated Diagnoses Date/Ti [...] this encounter Medical Devices Implanted Type Area Electric Well Logging Operator Device Identifier Shelf Expiration Date Model / Serial / Lot Stent Oren 3.0x12 Rx - [id number] Implanted:Qty: 1 on 06/05/2021 by Arvind Denney DO at [facility] [place] [employer] : VASCULAR [id number] 11/14/2023 [id number] X / / [id number] documented as of this encounter Advance Directives [...] Advance Directives occurred with: Patient Care Teams Marine Painter Relationship Specialty Start Date End Date Tg Higgins MD [address] [place] [address] PCP - General Family Medicine 03/06/17 documented as of this encounter
--- OUTSIDE RECORDS SUMMARY | 2024-02-12 18:32 | External Medical Summary | Summary of Care ---
Author Name Unknown Organization [facility] Address [address] [place] [address] Phone [phone] Care Team Providers Care Legal Research Analyst Name Role Phone Tg Higgins MD Primary Care Provider + Reason for Visit * Reason Onset Date Comments Referral 09/12/2023 Encounter Details Date Type Department Care Team ([facility] st Contact Info) Description 09/12/2023 Telephone [place] [address] [place] [address] Specified, [place] No Resource [address] [place] [address] Referral Allergies Active Allergy Reactions Criticality Noted Date Comments Ceftriaxone Rash Medium 06/06/2021 documented as of this encounter (statuses as of 09/18/2023) Medications Medication Sig Dispensed Refills Start Date [...] as of this encounter (statuses as of 09/18/2023) Active Problems Problem Noted Date Diagnosed Date [...] as of this encounter (statuses as of 09/18/2023) Resolved Problems Problem Noted Date Diagnosed Date Resolved Date Left against medical advice 06/01/2021 06/02/2021 Atrial fibrillation with RVR 05/31/2021 06/04/2021 documented as of this encounter (statuses as of 09/18/2023) Immunizations Name Administration Dates Next Due COVID-19 mRNA, LNP-s, No Pre serve, 2-Dose Series ([employer]) 08/27/2020,08/05/2020 documented as of this encounter Social [...] encounter Miscellaneous Notes * Telephone Encounter - Amalia Leonardo LPN - 09/18/2023 3:04 PM EDT Called pt to schedule appt, pt declines at this time. He states he hasn't had any bleeding since the ED, and never had an issue with nose bleed. He would like to monitor for now. He will call us backif he decides to schedule. * Telephone Encounter - Karla Campbell OSA - 09/12/2023 8:49 AM EDT LM for pt to please return call. * Telephone Encounter - Maame Brooks LPN - 09/12/2023 8:29 AM EDT Please assist with first available. Patient will need to return to ER for any acute active nosebleed prior to appointment with ENT. * Telephone Encounter - Karla Campbell OSA - 09/12/2023 7:55 AM EDT Received urgent referral for pt stating: Associated Diagnoses Nosebleed [R04.0] - Primary Comments Nosebleeds on blood thinners Discharge Order Please review & advise. documented in this encounter Plan of Treatment Health Maintenance Due Date Last Done Comments [...] this encounter Medical Devices Implanted Type Area Trimmer Tailer Device Identifier Shelf Expiration Date Model / Serial / Lot Stent [place] 3.0x12 Rx - [id number] Implanted:Qty: 1 on 06/05/2021 by Arvind Denney DO [place] [facility] [place] [employer] [place] [id number] 11/14/2023 [id number] X / / [id number] documented as of this encounter Advance Directives [...] Advance Directives occurred with: Patient Care Teams Legal Research Analyst Relationship Specialty Start Date End Date Tg Higgins MD [address] [facility] [place] [address] PCP - General Family Medicine 03/06/17 documented as of this encounter
--- OUTSIDE RECORDS SUMMARY | 2024-02-12 18:32 | External Medical Summary | Summary of Care ---
Author Name Unknown Organization [facility] Address [address] [place] [address] Phone [phone] Care Team Providers Care Packing House Supervisor Name Role Phone Tg Higgins MD Primary Care Provider + Reason for Referral * Precert (Within 10 days (routine)) - Authorized Specialty Diagnoses / Procedures Referred By Contac t Referred To Contact Cardiac Studies Diagnoses Paroxysmal atrial fibrillation (HCC) HFrEF (heart failure with reduced ejection fraction) (HCC) Nonrheumatic aortic valve stenosis Procedures ECHO, STRESS (DOBUTAMINE) W/ PHYSICIAN Karla Lane CRNP [address] [place] [address] Referral ID Status Reason Start Date Expiration Date V isits Requested Visits Authorized [id number] Authorized Precert 09/26/2023 11/26/2023 999 999 * Precert (Within 10 days (routine)) - Pending Review Specialty Diagnoses / Procedures Referred By Contac t Referred To Contact Cardiac Studies Diagnoses Paroxysmal atrial fibrillation (HCC) Procedures TRANSESOPHAGEAL ECHO (COMPLETE) Karla Lane CRNP [address] [place] [address] Referral ID Status Reason Start Date Expiration Date Visits Requested Visits Authorized [id number] Pending Review Precert 09/26/2023 999 999 Reason for Visit * Reason Onset Date Comments Procedure 09/26/2023 JOSEPH/DCCV Encounter Details Date Type Department Care Team (Late st Contact Info) Description 09/26/2023 Telephone Cardiology, [place] [address] [place] [address] CRNP [address] [place] [address] Procedure (JOSEPH/DCCV) Allergies Active [...] mRNA, LNP-s, No Pre serve, 2-Dose Series ([employer]) 08/27/2020,08/05/2020 documented as of this encounter [...] Telephone Encounter - Stacy Rosario OSA - 10/01/2023 3:47 PM EDT Attempted to contact pt, LM on mobile [...] Electrical Cardioversion Instructions Procedure Date: 10/11/2023 Location: [facility]- OR Additional labs or testing needed: Non-fasting lab work a few days prior. EKG about 30 minutes before the procedure in the cardiology office Nothing to eat or drink after midnight. No tobacco products after midnight DO NOT take your medications the morning of the procedure except for Eliquis (anticoagulant/blood thinner) Any dentures will need to be removed before procedure. Arrive at [facility] at 9.30 am at the registration desk on the fourth floor. After the procedure you will be kept for a few hours for observation, then discharged home. You will not be permitted to drive yourself home from the procedure as you will be given a form of anesthesia prior/during the procedure. Call the office at [phone] with any questions or concerns. [...] can be done 1 month after JOSEPH/DCCV Karla Leslie CRNP * Telephone Encounter - Karla Lane CRNP [...] 10/11/2023 10:30 AM EDT Hospital Encounter OR [facility], Operating Room, [facility] - 4th Floor [address] [facility] [place] [address] Tacos Talbot DO [address] [facility] [place] [address] 10/11/2023 10:30 AM EDT - 10/11/2023 11:30 AM EDT Surgery OR [facility], Operating Room, [facility] - 4th Floor [address] [place] [address] [place] [address] Tacos Talbot DO [address] [facility] [place] [address] ECHOCARDIOGRAPHY, TRANSESOPHAGEAL; INCLUDING PROBE PLACEMENT, IMAGE ACQUISITION, INTERPRETATION AND REPORT 10/11/2023 10:30 AM EDT Appointment [address], [address] [place] [address] 11/07/2023 9:15 AM EDT Appointment [address] Studies, [address] [address] 01/16/2024 2:30 PM EDT Office Visit Cardiology, [address] [place] [address] CRNP [address] [place], [place] [address] [address] Scheduled Orders Name Type Priority Associated Diagnoses Orde r Schedule TRANSESOPHAGEAL ECHO (COMPLETE) Echocardiology Routine Paroxysmal atrial fibrillation (HCC) Expected: 09/26/2023, Expires: 10/26/2024 ECHO, STRESS (DOBUTAMINE) W/ PHYSICIAN Echocardiology Routine Paroxysmal atrial fibrillation (HCC) HFrEF (heart failure with reduced ejection fraction) (HCC) Nonrheumatic aortic valve stenosis Expected: 09/26/2023, Expires: [...] this encounter Medical Devices Implanted Type Area Pit Clerk Device Identifier Shelf Expiration Date Model / Serial / Lot Stent Oren 3.0x12 Rx - [id number] Implanted:Qty: 1 on 06/05/2021 by Arvind Denney DO at [facility] [place] [employer] : VASCULAR [id number] 11/14/2023 [id number] X / / [id number] documented as of this encounter Visit Diagnoses [...] Advance Directives occurred with: Patient Care Teams Packing House Supervisor Relationship Specialty Start Date End Date Tg Higgins MD [address] [facility] [place] [address] PCP - General Family Medicine 03/06/17 documented as of this encounter
--- OUTSIDE RECORDS SUMMARY | 2024-02-12 18:32 | External Medical Summary | Summary of Care ---
Author Name Unknown Organization [facility] Address [address] [place] [address] Phone [phone] Care Team Providers Care Digital Operations Analyst Name Role Phone Tg Higgins MD Primary Care Provider + Reason for Referral * Evaluate & Treat - Unlimited Visits (Within 24 hrs (call dept; emergent)) - Pending Review Specialty Diagnoses / Procedures Referred By Hakeem wheeler Referred To Contact Cardiovascular Medicine Diagnoses Aortic valve stenosis, etiology of cardiac valve disease unspecified Karla Lane CRNP [address] [place] [address] Referral ID Status Reason Start Date Expiration Date Visits Requested Visits Authorized [id number] Pending Review Specialty Services Required 09/18/2023 999 999 Question Answer Referral Priority Within 24 hrs (call dept; emergent) Where should this appointment be scheduled? [facility] Encounter Details Date Type Department Care Team ([facility] Contact Info) Description 09/18/2023 Orders Only Cardiology, [address] CRNP [address] [place], [place] [id number] Aortic valve stenosis, etiology of cardiac valve disease unspecified* Allergies Active Allergy Reactions Criticality Noted Date [...] as of this encounter Plan of Treatment Scheduled Referrals Name Type Priority Associated Diagnoses Orde r Schedule VALVE CLINIC REFERRAL OP Referral Within 24 hrs (call dept; emergent) Aortic valve stenosis, etiology of cardiac valve disease unspecified Ordered: 09/18/2023 Health Maintenance Due Date Last Done Comments [...] this encounter Medical Devices Implanted Type Area Check Out Cashier Device Identifier Shelf Expiration Date Model / Serial / Lot Stent Oren 3.0x12 Rx - [id number] Implanted:Qty: 1 on 06/05/2021 by Arvind Denney DO [place] [facility] [facility] [place] [employer] [place] [id number] 11/14/2023 [id number] X / / [id number] documented as of this encounter Visit Diagnoses Diagnosis Aortic valve stenosis, etiology of cardiac valve disease unspecified- Primary documented in this encounter Advance Directives Latest [...] Advance Directives occurred with: Patient Care Teams Digital Operations Analyst Relationship Specialty Start Date End Date Tg Higgins MD [address] [facility] [place] [address] PCP - General Family Medicine 03/06/17 documented as of this encounter
--- OUTSIDE RECORDS SUMMARY | 2024-02-12 18:32 | External Medical Summary | Summary of Care ---
Author Name Unknown Organization [facility] Address [address] [place] [address] Phone [phone] Care Team Providers Care Sweeper Cleaner Industrial Name Role Phone Tg Higgins MD Primary Care Provider + Encounter Details Date Type Department Care Team (Late st Contact Info) Description 09/19/2023 New Patient Triage (EDITING INTERN USE ONLY) Cardiology [facility] Advanced [place] [address] [place] [address] Salena Lagunas, RN Allergies Active Allergy Reactions Criticality Noted Date Comments Ceftriaxone Rash Medium 06/06/2021 documented as of this encounter (statuses as of 09/20/2023) Medications Medication Sig Dispensed Refills Start Date [...] as of this encounter (statuses as of 09/20/2023) Active Problems Problem Noted Date Diagnosed Date [...] as of this encounter (statuses as of 09/20/2023) Resolved Problems Problem Noted Date Diagnosed Date Resolved Date Left against medical advice 06/01/2021 06/02/2021 Atrial fibrillation with RVR 05/31/2021 06/04/2021 documented as of this encounter (statuses as of 09/20/2023) Immunizations Name Administration Dates Next Due COVID-19 mRNA, LNP-s, No Pre serve, 2-Dose Series ([employer]) 08/27/2020,08/05/2020 documented as of this encounter Social [...] Progress Notes * Zayra Patricia OSA - 09/20/2023 5:03 PM EDT Pt scheduled 09/24 * Zayra Patricia OSA - 09/19/2023 5:27 PM EDT This is a 24hr stat valve clinic referral. Are we just scheduling next available? * Salena Lagunas, RN - 09/19/2023 11:48 AM EDT New Patient Triage What is the diagnosis/reason for referral?: Aortic Stenosis / Mitral Regurgitation Enter order ID here: [id number] Specialty specific documentation: Cardiology Structural Heart Please see multidisciplinary follow up note KANIKA Camejo Interventional Valve Nurse Navigator documented in this encounter Plan of Treatment Upcoming Encounters Date Type Department Care Team (Late st Contact Info) Description 09/25/2023 3:00 PM EDT Office Visit Cardiology [facility] [address] [place] [address] Adilson Castelan MD [address] [place] [address] Scheduled Orders Name Type Priority Associated Diagnoses [...] this encounter Medical Devices Implanted Type Area Sales Representative Livestock Device Identifier Shelf Expiration Date Model / Serial / Lot Stent [place] 3.0x12 Rx - [id number] Implanted:Qty: 1 on 06/05/2021 by Arvind Denney DO at [facility] [place] [place] [employer] : VASCULAR [id number] 11/14/2023 [id number] X / / [id number] documented as of this encounter Visit Diagnoses [...] Advance Directives occurred with: Patient Care Teams Sweeper Cleaner Industrial Relationship Specialty Start Date End Date Tg Higgins MD [address] [facility] [place] [id number] PCP - General Family Medicine 03/06/17 documented as of this encounter
--- OUTSIDE RECORDS SUMMARY | 2024-02-12 18:32 | External Medical Summary ---
Author Name Unknown Address Unknown Organization K01:[facility] [place] [facility] [address] [facility] [address] [facility] [address] Laboratory Report Ordering Provider Test Date Status PEPPER [place]END 10/04/2023 13:39:46 Final Observation Date Value Abnormality Reference (Units ) Status BUN 10/04/2023 13:39:46 18 6-20 (mg/dL) Final Creatinine 10/04/2023 13:39:46 1.1 0.6-1.2 (mg/dL) Final Glomerular filtration rate/1.73 sq M.predicted [Volume Rate/Area] in Serum, Plasma or Blood by Creatinine-based formula (CKD-EPI) 10/04/2023 13:39:46 74 >=60 (mL/min) Final eGFR is calculated based on the CKD-EPI 2020 equation Sodium 10/04/2023 13:39:46 140 135-146 (m mol/L) Final Potassium 10/04/2023 13:39:46 4.8 3.5-5.1 (m mol/L) Final Cl 10/04/2023 13:39:46 105 98-107 (mm ol/L) Final CO2 10/04/2023 13:39:46 24 22-32 (mmo l/L) Final Anion gap 10/04/2023 13:39:46 11 7-15 (mmol /L) Final Glucose 10/04/2023 13:39:46 83 70-120 (mg /dL) Final Calcium 10/04/2023 13:39:46 9.3 8.4-10.2 ( mg/dL) Final Performing Location [facility] [place] [facility] [address] [facility] [address]
--- OUTSIDE RECORDS SUMMARY | 2024-02-12 18:32 | External Medical Summary | Summary of Care ---
Author Name Unknown Organization [facility] Address [address] [place] [address] Phone [phone] Care Team Providers Care Compensation Manager Name Role Phone Tg Higgins MD Primary Care Provider + Encounter Details Date Type Department Care Team (Late st Contact Info) Description 09/19/2023 New Patient Triage (DECAL CUTTER USE ONLY) Cardiology [facility] [place] [address] [place] [address] Salena Lagunas, RN Allergies Active Allergy Reactions Criticality Noted Date Comments Ceftriaxone Rash Medium 06/06/2021 documented as of this encounter (statuses as of 09/22/2023) Medications Medication Sig Dispensed Refills Start Date [...] as of this encounter (statuses as of 09/22/2023) Active Problems Problem Noted Date Diagnosed Date [...] as of this encounter (statuses as of 09/22/2023) Resolved Problems Problem Noted Date Diagnosed Date Resolved Date Left against medical advice 06/01/2021 06/02/2021 Atrial fibrillation with RVR 05/31/2021 06/04/2021 documented as of this encounter (statuses as of 09/22/2023) Immunizations Name Administration Dates Next Due COVID-19 mRNA, LNP-s, No Pre serve, 2-Dose Series (E[employer]pect) 08/27/2020,08/05/2020 documented as of this encounter Social [...] as of this encounter Progress Notes * Amirah Perez DNP - 09/22/2023 6:20 PM EDT Does patient need to be seen?: Yes Modality: Office visit Urgency: Within 10 days (routine) Discussed care plan with patient or proxy?: Yes per valve triage Communicated with patient on Date (mm/dd/yvikasy): 09/19/2023 at Time ([facility]): [address] Amirah Perez DNP, [place] [address] [facility] * Zayra Patricia OSA - 09/20/2023 5:03 PM EDT Pt scheduled 09/24 * Zayra Patricia OSA - 09/19/2023 5:27 PM EDT This is a 24hr stat valve clinic referral. Are we just scheduling next available? * Salena Lagunas RN - 09/19/2023 11:48 AM EDT New Patient Triage What is the diagnosis/reason for referral?: Aortic Stenosis / Mitral Regurgitation Enter order ID here: [id number] Specialty specific documentation: Cardiology Structural Heart Please see multidisciplinary follow up note YAYA CamejoN Interventional Valve Nurse Navigator documented in this encounter Plan of Treatment Upcoming Encounters Date Type Department Care Team (Late st Contact Info) Description 09/25/2023 3:00 PM EDT Office Visit Cardiology [facility] [address] [place] [address] Adilson Castelan MD [address], [place] [id number] Scheduled Orders Name Type Priority Associated Diagnoses [...] this encounter Medical Devices Implanted Type Area Medical Review Specialist Device Identifier Shelf Expiration Date Model / Serial / Lot Stent [place] 3.0x12 Rx - [id number] Implanted:Qty: 1 on 06/05/2021 by Arvind Denney DO at [facility] [employer] : VASCULAR [id number] 11/14/2023 [id number] / / [id number] documented as of this encounter Visit Diagnoses [...] Advance Directives occurred with: Patient Care Teams Compensation Manager Relationship Specialty Start Date End Date Tg Higgins MD [address] [facility] [place] [address] PCP - General Family Medicine 03/06/17 documented as of this encounter
--- OUTSIDE RECORDS SUMMARY | 2024-02-12 18:33 | External Medical Summary | Summary of Care ---
Author Name Unknown Organization [facility] Address [address] [place] [address] Phone [phone] Care Team Providers Care Saddle And Side Wire Stitcher Name Role Phone Tg Higgins MD Primary Care Provider + Reason for Visit * Precert (Within 10 days (routine)) - Authorized Specialty Diagnoses / Procedures Referred By Contac t Referred To Contact Cardiac Studies Diagnoses Chronic coronary artery disease HFrEF (heart failure with reduced ejection fraction) (HCC) Ischemic cardiomyopathy Paroxysmal atrial fibrillation (HCC) Dyslipidemia, goal LDL below 70 Ascending aorta enlargement (HCC) Aortic root enlargement (HCC) Procedures ECHO, COMPLETE (2D), TRANS-THORACIC Karla Lane CRNP [address] [place] [address] Referral ID Status Reason Start Date Expiration Date V isits Requested Visits Authorized [id number] Authorized Precert 09/02/2023 11/01/2023 [id number] Encounter Details Date Type Department Care Team (Latest Contact Info) Description 09/16/2023 1:00 PM EDT - 09/16/2023 11:59 PM EDT Hospital Encounter Cardiac Studies, [facility] [address] [place] [address] Discharge Disposition: Home - Self Care Allergies Active Allergy Reactions Criticality Noted Date Comments Ceftriaxone Rash Medium 06/06/2021 documented as of this encounter (statuses as of 09/17/2023) Medications Medication Sig Dispensed Refills Start Date [...] as of this encounter (statuses as of 09/17/2023) Active Problems Problem Noted Date Diagnosed Date [...] as of this encounter (statuses as of 09/17/2023) Resolved Problems Problem Noted Date Diagnosed Date Resolved Date Left against medical advice 06/01/2021 06/02/2021 Atrial fibrillation with RVR 05/31/2021 06/04/2021 documented as of this encounter (statuses as of 09/17/2023) Immunizations Name Administration Dates Next Due COVID-19 mRNA, LNP-s, No Pre serve, 2-Dose Series ([employer]) 08/27/2020,08/05/2020 documented as of this encounter Social [...] as of this encounter Plan of Treatment Pending Results Name Type Priority Associated Diagnoses Date /Time ECHO, COMPLETE (2D), TRANS-THORACIC Echocardiology Routine Chronic coronary artery disease HFrEF (heart failure with reduced ejection fraction) (HCC) Ischemic cardiomyopathy Paroxysmal atrial fibrillation (HCC) Dyslipidemia, goal LDL below 70 Ascending aorta enlargement (HCC) Aortic root enlargement (HCC) 09/16/2023 2:20 PM EDT Health Maintenance Due Date [...] encounter Medical Devices Implanted Type Area Sales Support Administrator Device Identifier Shelf Expiration Date Model / Serial / Lot Stent [place] 3.0x12 Rx - [id number] Implanted:Qty: 1 on 06/05/2021 by Arvind Denney DO at [facility] [employer] : VASCULAR [id number] 11/14/2023 [id number] / / [id number] documented as of this encounter Visit Diagnoses Diagnosis Chronic coronary artery disease Coronary atherosclerosis of unspecified type of vessel, [place] or graft HFrEF (heart failure with reduced ejection fraction) (HCC) Ischemic cardiomyopathy Other specified forms of chronic ischemic heart disease Paroxysmal atrial fibrillation (HCC) Atrial fibrillation Dyslipidemia, goal LDL below 70 Other and unspecified hyperlipidemia Ascending aorta enlargement (HCC) Other specified disorders of arteries and arterioles Aortic root enlargement (HCC) Other specified disorders of arteries and arterioles documented in this encounter Advance Directives Latest [...] Advance Directives occurred with: Patient Care Teams Saddle And Side Wire Stitcher Relationship Specialty Start Date End Date Tg Higgins MD [address] [facility] [place] [address] PCP - General Family Medicine 03/06/17 documented as of this encounter
--- OUTSIDE RECORDS SUMMARY | 2024-02-12 18:33 | External Medical Summary | Summary of Care ---
Author Name Unknown Organization [facility] Address [address] [place] [address] Phone [phone] Care Team Providers Care Network/Telecom Engineer Name Role Phone Tg Higgins MD Primary Care Provider + Reason for Referral * Evaluate & Treat - Unlimited Visits (Within 3 days (urgent)) - Pending Review Specialty Diagnoses / Procedures Referred By Hakeem wheeler Referred To Contact Otolaryngology Diagnoses Nosebleed Andrea Fuentes PA-C [address] [place] [address] Referral ID Status Reason Start Date Expiration Date Visits Requested Visits Authorized [id number] Pending Review Specialty Services Required 09/11/2023 [id number] Question Answer Referral Priority Within 3 days (urgent) Where should this appointment be scheduled? ising Reason for Referral Nasal/Sinus/Allergy Conditions Specific Condition: Epistaxis (nosebleeds) Comments Nosebleeds on blood thinners Discharge Order Reason for Visit * Reason Comments Nose Bleed On thinners * Auth/Cert Specialty Diagnoses / Procedures Referred By Hakeem wheeler Referred To Contact [address] [address] Phone: [phone] Emergency Medicine [facility] [address] [place] [address] Referral ID Status Reason Start Date Expiration Date Visits Re quested Visits Authorized [id number] Encounter Details Date Type Department Care Team ([facility] st Contact Info) Description 09/11/2023 7:54 AM EDT - 09/11/2023 9:53 AM EDT Emergency [facility] [address] [place] [address] Henry Espana MD [address] [place], [place] [id number] Nosebleed (Primary Dx) Discharge Disposition: Home - Self Care Allergies Active Allergy Reactions Criticality Noted Date Comments Ceftriaxone Rash Medium 06/06/2021 documented as of this encounter (statuses as of 09/11/2023) Medications Medication Sig Dispensed Refills Start Date [...] as of this encounter (statuses as of 09/11/2023) Active Problems Problem Noted Date Diagnosed Date [...] as of this encounter (statuses as of 09/11/2023) Resolved Problems Problem Noted Date Diagnosed Date Resolved Date Left against medical advice 06/01/2021 06/02/2021 Atrial fibrillation with RVR 05/31/2021 06/04/2021 documented as of this encounter (statuses as of 09/11/2023) Immunizations Name Administration Dates Next Due COVID-19 mRNA, LNP-s, No Pre serve, 2-Dose Series (Topic) 08/27/2020,08/05/2020 documented as of this encounter Social [...] Sign Reading Time Taken Comments Blood Pressure 113/82 09/11/2023 9:00 AM EDT Pulse 85 09/11/2023 9:00 AM EDT Temperature 36.7 C (98.1 F) 09/11/2023 7:58 AM ED T Respiratory Rate 19 09/11/2023 9:00 AM EDT Oxygen Saturation 99% 09/11/2023 7:58 AM EDT Inhaled Oxygen Concentration - - Weight 99.8 kg (220 lb) 09/11/2023 7:58 AM EDT Height 182.9 cm (6') 09/11/2023 7:58 AM EDT Body Mass Index 29.84 09/11/2023 7:58 AM EDT documented in this encounter Functional [...] (15 years old or older) No 06/01/19 22 Cognitive Status Response Date of Assessm ent Because of a physical, menta l, or emotional condition, do you have serious difficulty concentrating, remembering, or making decisions? (5 years old or older) No 06/01/2021 documented as of this encounter Discharge Instructions * Discharge Instructions* Andrea Fuentes PA-C - 09/11/2023 9:29 AM EDT You were seen today and treated in the ED for a nosebleed. We did use a mixture of TXA and Afrin toget your nosebleed to stop, along with clamping. I did not note any active bleeding after the administration of the medications. Please try to refrain from touching your nose or sticking anything up your nose over the next couple of days here. If your nose starts bleeding again at home, you can [id number] Afrin/oxymetazoline spray up the nose, and then clamp at and keep her head forward, if this does not work to stop the bleeding and you were still bleeding through the clamp, please return to the ED for possible packing of the nose. I will place a referral for you for ENT. Please follow up with them. Please return to the ED with worsening condition. documented in this encounter ED Notes * Anusha Dunn RN - 09/11/2023 7:59 AM EDT Patient presents to the ED with a nose bleed that he woke up with. Patient is on 5mg of Eliquis. Patient believes that bleeding is coming from right nostril. Patient denies any SOB, CP, and fever. Patient does report dizziness/lightheadedness. Patient has no clamp on at this time documented in this encounter Miscellaneous Notes * ED Detonator Assembler Note - Mery Saravia RN - 09/11/2023 9:51 AM EDT Pt given discharge instructions per physicians order. Made aware to follow up with PCP within the next 3-5 days and provided with ENT referral. All questions answered, pt verbalized understanding. Ptambulated out of this department with steady gait. * Pt Handout (on AVS) - Andrea Fuentes PA-C - 09/11/2023 9:31 AM EDT Images from the original note were not included. [id number] Nosebleed (Adult) Bleeding from the nose most commonly occurs because of injury or drying and cracking of the inner lining of the nose. Most nosebleeds are because of dry air or nose-picking. They can occur during a common cold or an allergy attack. They can also occur on a very hot day, or from dry air in the winter. Most nosebleeds are not serious and are located towards the front of the nose. Nosebleeds that are located toward the back of the nose, closer to the throat, are less common, but may be harder to control and become more serious. In cases where the bleeding is not able to be controlled, the site of the bleeding is found, and may be cauterized. This means it's treated to cause a blood clot to form. This may be done with a chemical, heat, or electricity. If the bleeding continues after the site is cauterized, or if the site can't be found, packing may be put in your nose. This is to apply pressure and stop the bleeding. Thepacking may be made of gauze or sponge. A small balloon catheter is sometimes used. These must be removed by your healthcare provider. Some types of packing dissolve on their own. In rare cases, surgery or embolization (sealing of the nose blood vessels using a catheter through an artery) is neededto stop a nosebleed. If you are taking blood thinning (anticoagulant) medicine, you may have a blood test and be advised to stop taking certain medicines for a while. Home care If packing was put in your nose, unless told otherwise, don't pull on it or try to remove it yourself. You will be given an appointment to have it removed. You may also have been given antibioticsto prevent a sinus infection. If so, finish all of the medicine. Don't blow your nose for 12 hours after the bleeding stops. This will allow a strong blood clot to form. After that, if you have to blow your nose, do it very gently. Don't pick your nose. This may restart bleeding. Don't drink alcohol or hot liquids for the next 2 days. Alcohol or hot liquids in your mouth candilate blood vessels in your nose. This can cause bleeding to start again. Don't take ibuprofen, naproxen, or medicines that contain aspirin. These thin the blood and may cause your nose to bleed. You may take acetaminophen for pain, unless another pain medicine was prescribed. Talk with your healthcare provider before using acetaminophen if you have chronic liver disease. If the bleeding starts again, sit up and lean forward to prevent swallowing blood. Pinch your nose tightly on both sides, as shown above, for 10 to 15 minutes. Time yourself. Don?t release the pressure on your nose until at least 10 minutes is up. If bleeding doesn't stop, continue to pinch yournose and, if the bleeding is a small amount, call your healthcare provider. If bleeding is heavy, call 911 or return to this facility. If you have a cold, allergies, or dry nasal membranes, lubricate the nasal passages. Gently apply a small amount of petroleum jelly inside the nose with a cotton swab twice a day (morning and night). Don't overheat your home. This can dry the air and make your condition worse. Put a humidifier in the room where you sleep. This will add moisture to the air. Clean the humidifier as advised by the toll collector. Use a saline nasal spray to keep nasal passages moist. Don't pick your nose. Keep fingernails trimmed to decrease risk of bleeds. Don't smoke. Follow-up care Follow up with your healthcare provider, or as advised. Nasal packing should be rechecked or removed within 2 to 3 days. When to get medical advice Call your healthcare provider right away if any of these occur. You have intermittent, recurrent, small amounts of bleeding that you can control for a while Fever of 100.4F (38C) or higher, or as directed by your healthcare provider Headache Sinus or facial pain Call 911 Call 911 or get medical care right away if any of the following occur: Dizziness, weakness, or fainting Shortness of breath or trouble breathing You have another nosebleed that you can't control, or with heavy bleeding You become abnormally tired or confused Last Reviewed Date: 11/10/202119992046-1342 [employer]. All rights reserved. This information is not intended as a substitute for professional medical care. Always follow your healthcare professional's instructions. documented in this encounter Plan of Treatment Upcoming Encounters Date Type Department Care Team (Late st Contact Info) Description 09/16/2023 1:00 PM EDT Appointment Cardiac Studies, [address] [place] [address] Scheduled Referrals Name Type Priority Associated Diagnoses Order Schedule ADULT/PEDS OTOLARYNGOLOGY REFERRAL OP Referral Within 3 days (urgent) Nosebleed Ordered: 09/11/2023 Health Maintenance Due Date Last Done Comments [...] this encounter Medical Devices Implanted Type Area Rail Signal Designer Device Identifier Shelf Expiration Date Model / Serial / Lot Stent Oren 3.0x12 Rx - [id number] Implanted:Qty: 1 on 06/05/2021 by Arvind Denney DO at [facility] [place] [employer] : VASCULAR [id number] 11/14/2023 [id number] / / [id number] documented as of this encounter Visit Diagnoses Diagnosis Nosebleed- Primary Epistaxis documented in this encounter Administered Medications Inactive Administered Medications - up to 3 most recent administrations Medication Order MAR Action Action Date Dose Rate Site oxymetazoline (Afrin) 0.05 % TOPICAL FOR EPISTAXIS 5 mL 5 mL, Topical, ONCE, On Sat09/11/23 at 0845, For 1 dose, FOR TOPICAL APPLICATION ONLY Place 5 mL of oxymetazoline 0.05% in a sterile container. Soak approximately 15 cm of sterile gauze/packing in 5 mL oxymetazoline 0.05% . Pack nostril as appropriate and leave in place until bleeding has stopped. Given 09/11/2023 8:45 AM EDT 5 mL tranexamic acid (Cyklokapron) TOPICAL 500 mg 500 mg, Topical, ONCE, On Sat09/11/23 at 0845, For 1 dose, FOR TOPICAL APPLICATION ONLY Place 5 mL of tranexamic acid injection in a sterile container. Soak approximately 15 cm of sterile gauze/packing in 5 mL of Tranexamic acid injection. Pack nostril as appropriate and leave in place until bleeding has stopped. Given 09/11/2023 8:45 AM EDT 500 mg documented in this encounter Active and Recently Administered Medications Times are shown in EDT. Scheduled Medication Order 09/09/2023 09/10/2023 09/11/2023 oxymetazoline (Afrin) 0.05 % TOPICAL FOR EPISTAXIS 5 mL (COMPLETED) 5 mL, Topical, ONCE, On Sat09/11/23 at 0845, For 1 dose, FOR TOPICAL APPLICATION ONLY Place 5 mL of oxymetazoline 0.05% in a sterile container. Soak approximately 15 cm of sterile gauze/packing in 5 mL oxymetazoline 0.05% . Pack nostril as appropriate and leave in place until bleeding has stopped. 0845 (Given - Provid er: Mery Saravia RN) tranexamic acid (Cyklokapron) TOPICAL 500 mg (COMPLETED) 500 mg, Topical, ONCE, On Sat09/11/23 at 0845, For 1 dose, FOR TOPICAL APPLICATION ONLY Place 5 mL of tranexamic acid injection in a sterile container. Soak approximately 15 cm of sterile gauze/packing in 5 mL of Tranexamic acid injection. Pack nostril as appropriate and leave in place until bleeding has stopped. 0845 (Given - Provid er: Mery Saravia RN) documented in this encounter Advance Directives Latest [...] Advance Directives occurred with: Patient Care Teams Network/Telecom Engineer Relationship Specialty Start Date End Date Tg Higgins MD [address] [facility] [place] [address] PCP - General Family Medicine 03/06/17 documented as of this encounter
[2024-02-12] MEDS: ASCORBIC ACID 500 MG TAB PO SCH (20:25)
[2024-02-12] MEDS: BIMATOPROST 0.01% OP SOLN 2.5 ML BTL OPB SCH (20:26)
[2024-02-13 08:11] VITALS: RESP 20
[2024-02-13] MEDS: ASPIRIN 81 MG ECTAB PO SCH (08:37)
[2024-02-13] MEDS: ROSUVASTATIN CALCIUM 5 MG TAB PO SCH (08:38)
[2024-02-13] MEDS: CHOLECALCIFEROL 125 MCG (5,000 UNITS) TAB PO SCH (08:38)
[2024-02-13] MEDS: METOPROLOL SUCC 25MG EXT REL TAB PO SCH (08:38)
[2024-02-13] MEDS: APIXABAN 5 MG TABLET PO SCH (08:38)
[2024-02-13] MEDS: LOSARTAN POTASSIUM 25 MG TAB PO SCH (08:38)
[2024-02-13] MEDS ORDERED: EMPAGLIFLOZIN 10 MG TAB PO SCH (09:00)
--- NOTE | 2024-02-13 10:36 | Cardiology Progress Note ---
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 Feeling well this morning. Rash on torso noted - likely due to antibiotic or pain medication He is asymptomatic. Encouraged to take OTC Benadryl at home for several days. If rash worsens, or he has sudden trouble breathing, ER recommended. Discussed with Dr. Pa and Dr. Marcos Stable for discharge Metoprolol dose increased to 25 mg daily Otherwise he will continue all current medications Case discussed with Dr. Marcos. I spent a total of 30 minutes on the date of service in preparation, delivery, and documentation of the care provided to this patient, excluding any time spent in the performance of separately billed services. Tessa Hayes PA-C Department of Cardiology, [facility] This chart was completed in part utilizing Speech Voice Recognition Software. Grammatical errors, random word insertions, pronoun errors, and incomplete sentences are an occasional consequence of this system due to software limitations, ambient noise, and hardware issues. Any formal questions or concerns about the content, text, or information contained within the body of this dictation should be directly addressed to the provider for clarification. Admission and Anticipated Discharge Date Admission Date: February 12, 2024 Supervising Physician Co-Signing Physician Notes Patient seen and examined personally. No pacemaker concerns, device functioning well, site clean. Drug eruption as above without compromise other than rash. I spent a total of 20 minutes on the date of service in preparation, delivery, and documentation of the care provided to this patient, excluding any time spent in the performance of separately billed services. Subjective Patient admitted yesterday after pacemaker insertion. During procedure patient had coughing/vomiting fit while sedated. Post op chest xray without pneumo or pulm vascular congestion. Echo with preserved EF, no pericardial effusion post op. This morning he reports feeling "great" and thinks his pacemaker has already helped his symptoms of dizziness and SOB. Pacemaker wound covered and dry/intact. Pain controlled. He has diffuse rash on his torso. He is asymptomatic and was unaware of it until I pointed it out. Review of Systems Review of Systems: All systems reviewed & are unremarkable except as noted in HPI & below Physical Exam Constitutional: WD/WN, vitals as above well developed; no acute distress Neck: trachea midline, no thyromegaly Respiratory: normal respiratory effort Auscultation: lungs clear to auscultation bilaterally Cardiovascular: Rate/Rhythm: regular rate and regular rhythm Heart Sounds: + murmur (II/ systolic murmur) Vessels: no JVD Extremities: no edema Gastrointestinal (Abdomen): normal bowel sounds, soft, nontender, no hepatosplenomegaly Skin: + rash (torso - anterior/posterior) Results & Data Vital Signs (Past 12 Hours) Vital Signs Temp Pulse Pulse Resp BP Pulse Ox O2 Del Method 02/13/24 08:10 36.3 C L 65 20 144/79 H 97 Room Air 02/13/24 07:00 60 02/13/24 03:11 36.8 C 68 17 132/74 94 Room Air 02/12/24 23:09 36.6 C 60 18 137/76 96 Room Air 02/12/24 22:36 60 Laboratory Results Intake and Output 02/12/24 02/13/24 02/13/24 22:59 06:59 14:59 Intake Total 240 / 240 Balance 240 / 240 Intake: Oral 240 / 240 Other: # Unmeasured Voids 2 Weight 99.5 kg Weight Measurement Method Built in [facility] Diagnostic Findings Telemetry reviewed: Atrial paced, ventricular sensed rhythm. Echo report reviewed: Normal LVEF at 55-60% Moderate LVH Moderate Mild to moderate MR LA is severely dilated No pericardial effusion Chest X-Ray 02/12/24 11:34 XR chest 1V portable CLINICAL HISTORY: s/p ppm ensure no PTX; also assess for aspiration COMPARISON STUDY: No previous studies for comparison. FINDINGS: There is no pneumothorax following placement of a dual-lead left subclavian pacer. No pleural effusion is present. There is no evidence for pulmonary edema. There is mild cardiomegaly. IMPRESSION: No pneumothorax following placement of a dual-lead left subclavian pacer. ACT 112: Negative or not required by law. Electronically signed by: Leonardo Eldridge M.D. 02/12/2024 12:35 PM Medications Administered Current Inpatient Medications Apixaban (Apixaban 5 Mg Tablet) 5 mg PO BID PAULINE Stop: 03/14/24 08:59 Last Admin: 02/13/24 08:38 Dose: 5 mg Ascorbic Acid (Ascorbic Acid 500 Mg Tab) 500 mg PO BID PAULINE Stop: 03/13/24 20:59 Last Admin: 02/13/24 08:37 Dose: 500 mg Aspirin (Aspirin 81 Mg Ectab) 81 mg PO DAILY PAULINE Stop: 03/14/24 08:59 Last Admin: 02/13/24 08:37 Dose: 81 mg Bimatoprost (Bimatoprost 0.01% Op Soln 2.5 Ml Btl) 1 drops OPB QPM PAULINE Stop: 03/13/24 20:59 Last Admin: 02/12/24 20:26 Dose: 1 drops Losartan Potassium (Losartan Potassium 25 Mg Tab) 25 mg PO DAILY PAULINE Stop: 03/14/24 08:59 Last Admin: 02/13/24 08:38 Dose: 25 mg Metoprolol Succinate (Metoprolol Succ 25mg Ext Rel Tab) 25 mg PO DAILY PAULINE Stop: 03/14/24 08:59 Last Admin: 02/13/24 08:38 Dose: 25 mg Rosuvastatin Calcium (Rosuvastatin Calcium 5 Mg Tab) 5 mg PO DAILY PAULINE Stop: 03/14/24 08:59 Last Admin: 02/13/24 08:38 Dose: 5 mg Vitamin D (Cholecalciferol 125 Mcg (5,000 Units) Tab) 125 mcg PO DAILY PAULINE Stop: 03/14/24 08:59 Last Admin: 02/13/24 08:38 Dose: 125 mcg
[2024-02-13 11:07] VITALS: BP 146/79; PULSE 60; TEMP 98.1; O2SAT 96
== END 2024-02-13 11:15 | disposition home or self-care (01) ==
LOC: EP 09:17 → 2E 09:17